=== PATIENT | male | born 1950 | race Caucasian/White ===

== ENCOUNTER → 2018-05-02 | Outpatient (CLI) | payer MEDICARE ==
--- NOTE | 2018-05-02 15:57 | XR ---
EXAMINATION TYPE: XR chest 2V DATE OF EXAM: 05/02/2018 COMPARISON: 03/09/2016 HISTORY: 68-year-old male, for 2 weeks, shortness of breath, open heart surgery 2 years ago, TECHNIQUE: Frontal and lateral views FINDINGS: Heart mildly enlarged. Median sternotomy wires and post-CABG clips. Diffuse interstitial prominence w ith small bilateral pleural effusions with bibasilar opacities. IMPRESSION: 1. Mild cardiomegaly with interstitial changes. Correlate for mild CHF. 2. Small pleural effusions with adjacent atelectasis and/or consolidation.
== END | disposition home or self-care (01) ==
LOC: RADXRMAIN 14:53
PROVIDERS: ATTEND Allergy & Immunology
DX: J90 Pleural effusion, not elsewhere classified (principal); J98.11 Atelectasis; J18.1 Lobar pneumonia, unspecified organism; I51.7 Cardiomegaly; J98.4 Other disorders of lung
CPT/HCPCS: 71046

== ENCOUNTER → 2018-05-10 | Outpatient (CLI) | payer MEDICARE | END | disposition home or self-care (01) | LOC: LABWHC1 09:59 | PROVIDERS: ATTEND Internal Medicine Interventional Cardiology | DX: I25.10 Atherosclerotic heart disease of native coronary artery without angina pectoris (principal); I50.40 Unspecified combined systolic (congestive) and diastolic (congestive) heart failure | CPT/HCPCS: 36415; 83880 ==

== ENCOUNTER → 2018-07-17 | Outpatient (CLI) | payer MEDICARE ==
--- NOTE | 2018-07-17 09:47 | US ---
EXAMINATION TYPE: US chest DATE OF EXAM: 07/17/2018 COMPARISON: NONE CLINICAL HISTORY: Bilateral Pleural Effusions J91.8. Bilateral pleural effusion TECHNIQUE: Targeted ultrasound of the posterior lower bilateral hemithoraces EXAM MEASUREMENTS: Right Pleural Effusion pocket size: 0.6 cm Right skin surface to fluid distance: 3.5 cm Left Pleural Effusion pocket size: 0.8 cm Left skin surface to fluid distance: 4.0 cm Right side NOT MARKED for possible thoracentesis outside the dept. Left side NOT MARKED for possible thoracentesis outside the dept. Pulmonologists are able to review the images in the patient?s EMR. IMPRESSIONS: Trace pleural effusions, not safely accessible for thoracentesis.
== END | disposition home or self-care (01) ==
LOC: RADUSWWP 08:58
PROVIDERS: ATTEND Internal Medicine
DX: J90 Pleural effusion, not elsewhere classified (principal)
CPT/HCPCS: 76604

== ENCOUNTER 2018-12-03 18:37 | Inpatient (IN) | payer MEDICARE ==
[2018-12-03] MEDS ORDERED: VANCOMYCIN 2,000 MG in SODIUM CHLORIDE 0.9% 250 ML IVPB STA (19:03)
--- NOTE | 2018-12-03 19:28 | ED ---
General Adult HPI - General Chief complaint: Altered Mental Status Stated complaint: infection lt leg Time Seen by Provider: 12/03/18 18:42 Source: patient, EMS Mode of arrival: EMS Limitations: no limitations - History of Present Illness Initial comments: Dictation was produced using [employer] dictation software. please excuse any gramma tical, word or spelling errors. Chief Complaint: 68-year-old male with past medical history of A. fib, dyslipidemia, chronic bilateral lower extremity neuropathy presents with fever, altered mental status and left lower extremity symptoms. History of Present Illness: He-year-old male. They spent most of [place] They reported that a living 2-[place] Patient was his usual state of health. [place] early this [place]. Patient's went to work. She received a phone call from him saying that he did not feel well. She noted that over the phone he was confused. She went home immediately noticed that his leg was significantly erythematous. noted that patient has been progressively confused. They spent the time of north and did not go hiking spent much time outside. Patient reports that he feels fine. Patient is an unreliable historian at this time. The ROS documented in this emergency department record has been reviewed and confirmed by me. Those systems with pertinent positive or negative responses have been documented in the HPI. All other systems are other negative and/or noncontributory. PHYSICAL EXAM: General Impression: Alert and oriented x4/4, slow to answer, not in acute distress HEENT: Normocephalic atraumatic, extra-ocular movements intact, pupils equal and reactive to light bilaterally, mucous membranes moist. Cardiovascular: Heart regular rate and rhythm, S1&S2 audible, no murmurs, rubs or gallops Chest: Lungs clear to auscultation bilaterally, no rhonchi, no wheeze, no rales Abdomen: Bowel sounds present, abdomen soft, non-tender, non-distended, no organomegaly Musculoskeletal: Pulses present and equal in all extremities, no peripheral edema Motor: no focal deficits noted Neurological: CN II-XII grossly intact, no focal motor or sensory deficits noted Skin: Hot erythematous left lower extremity extending from the heel area to the area just below the knee, circumferential Psych: Normal affect and mood ED course: 68-year-old male presents with concerns of sepsis. Once upon arrival shows temperature 103.2, respiratory signs within acceptable limits. Patient dunbar s cellulitic findings on the left lower extremity. He does appear slightly confused he does not however have any focal neurologic deficits. He is slightly confused however answers accurately just with slow response.Laboratory evaluation obtained. Leukocytosis 17.8 rest of CBC is unremarkable. Coag panel shows INR of 2.0. Patient is on Coumadin for A. fib. Metabolic panel shows sodium of 132, slight elevation of renal markers. Magnesium 1.5. Urinalysis no dealer compliance representative of urinary tract infection. Given patient's degree of symptoms lower shortly CT was obtained to evaluate for possible necrotizing fasciitis. CT does not suggest any evidence of that. Brain CT is unremarkable. Patient reevaluated after intravenous fluids with improvement of mental status. Patient's hemodynamics are stable. Patient be continued on vancomycin. Discussed patient case Dr. Weems was went except admission. Clinical presentation consistent with sepsis secondary to cellulitis. EKG interpretation: Ventricular rate 90, normal sinus rhythm,. Interval 174, care is 102, QTc 445. No DC prolongation, no QTC prolongation, no ST or T-wave changes noted. EKG compared to 03/03/2016 showing no changes. Overall, this EKG is unremarkable - Related Data Home Medications Medication Instructions Recorded Confirmed Albuterol Sulfate [Proventil Hfa] 2 puff INHALATION RT-Q6H PRN 02/25/16 03/02/16 Calcium Carbonate [Tums] 500 mg PO BID PRN 02/25/16 03/02/16 Multivitamins, Thera [Multivitamin 1 tab PO DAILY 02/25/16 03/02/16 (formulary)] Rosuvastatin [Crestor] 10 mg PO HS 02/25/16 03/02/16 cloNIDine HCL [Catapres] 0.2 mg PO TID 02/25/16 03/02/16 Previous Rx's Medication Instructions Recorded Amiodarone [Cordarone] 400 mg PO DAILY #7 tab 03/09/16 Aspirin 325 mg PO DAILY tab 03/09/16 Clopidogrel [Plavix] 75 mg PO DAILY #30 tab 03/09/16 HYDROcodone/APAP 5-325MG [Derby 1 each PO Q4HR PRN #60 tab 03/09/16 5-325] Metoprolol Tartrate [Lopressor] 100 mg PO BID #60 tab 03/09/16 Pantoprazole [Protonix] 40 mg PO АННА #30 tablet. 03/09/16 Sennosides-Docusate Sodium 2 each PO HS tab 03/09/16 [Senokot-S] Warfarin Sodium [Coumadin] 5 mg PO DAILY #30 tab 03/09/16 amLODIPine [Norvasc] 10 mg PO DAILY #30 tab 03/09/16 cloNIDine HCL [Catapres] 0.1 mg PO TID #90 tab 03/09/16 Allergies Allergy/AdvReac Type Severity Reaction Status Date / Time benazepril Allergy THROAT Verified 12/03/18 18:42 Swelling duloxetine [From Cymbalta] Allergy THROAT Verified 12/03/18 18:42 Swelling Review of Systems ROS Statement: Those systems with pertinent positive or pertinent negative responses have been documented in the HPI. ROS Other: All systems not noted in ROS Statement are negative. Past Medical History Past Medical History: Atrial Fibrillation, GERD/Reflux, Hyperlipidemia, Hypertension, Osteoarthritis (OA) Additional Past Medical History / Comment(s): CURRENT: HAS BEEN HAVING OCCASIONAL CHEST PAIN/PRESSUE WITH SOB, hx of bilateral tinnitis, UTI, occasional back pain, hiatal hernia, past dysphagia related to allergic reaction to medication, past gout . History of Any Multi-Drug Resistant Organisms: None Reported Past Surgical History: Cardiac Ablation, Heart Catheterization With Stent, Orthopedic Surgery Additional Past Surgical History / Comment(s): LEFT KNEE surgery for injury in [place], LEFT ROTATOR CUFF, CARDIOVERSION X 2, colonoscopy with benign polypectomy, bilateral cataract removals. Past Anesthesia/Blood Transfusion Reactions: No Reported Reaction Date of Last Stent Placement:: 1999 Past Psychological History: No Psychological Hx Reported Smoking Status: Former smoker Past Alcohol Use History: Occasional Past Drug Use History: None Reported - Past Family History Mother Family Medical History: No Reported History Additional Family Medical History / Comment(s): Mother of a sunstroke in her late 30's Father Family Medical History: Coronary Artery Disease (CAD) Additional Family Medical History / Comment(s): Father of heart disease (pt unsure if it was a [place]) in his early 40's General Exam Limitations: no limitations Course Vital Signs 12/03/18 12/03/18 18:42 21:04 Temperature 103.2 F H 101 F H Pulse Rate 96 84 Respiratory 18 18 Rate Blood Pressure 166/61 140/81 O2 Sat by Pulse 96 97 Oximetry Medical Decision Making - Lab Data Result diagrams: 12/03/18 19:40 12/03/18 19:40 Lab Results 12/03/18 12/03/18 12/03/18 Range/Units 19:40 19:40 19:40 WBC 17.8 H (3.8-10.6) k/uL RBC 4.75 (4.30-5.90) m/uL Hgb 14.2 (13.0-17.5) gm/dL Hct 42.3 (39.0-53.0) % MCV 89.0 (80.0-100.0) fL MCH 29.9 (25.0-35.0) pg MCHC 33.6 (31.0-37.0) g/dL RDW 14.1 (11.5-15.5) % Plt Count 136 L (150-450) k/uL Neutrophils % 93 % Lymphocytes % 2 % Monocytes % 3 % Eosinophils % 0 % Basophils % 0 % Neutrophils # 16.6 H (1.3-7.7) k/uL Lymphocytes # 0.4 L (1.0-4.8) k/uL Monocytes # 0.5 (0-1.0) k/uL Eosinophils # 0.0 (0-0.7) k/uL Basophils # 0.0 (0-0.2) k/uL PT (9.0-12.0) sec INR (<1.2) Sodium 132 L (137-145) mmol/L Potassium 4.5 (3.5-5.1) mmol/L Chloride 99 (98-107) mmol/L Carbon Dioxide 20 L (22-30) mmol/L Anion Gap 13 mmol/L BUN 27 H (9-20) mg/dL Creatinine 1.47 H (0.66-1.25) mg/dL Est GFR (CKD-EPI)AfAm 56 (>60 ml/min/1.73 sqM) Est GFR (CKD-EPI)NonAf 48 (>60 ml/min/1.73 sqM) Glucose 126 H (74-99) mg/dL Plasma Lactic Acid Vish 1.5 (0.7-2.0) mmol/L Calcium 9.3 (8.4-10.2) mg/dL Magnesium 1.5 L (1.6-2.3) mg/dL Total Bilirubin 1.2 (0.2-1.3) mg/dL AST 34 (17-59) U/L ALT 19 L (21-72) U/L Alkaline Phosphatase 54 (38-126) U/L Creatine Kinase 230 H (55-170) U/L Total Protein 7.0 (6.3-8.2) g/dL Albumin 4.0 (3.5-5.0) g/dL Urine Color Urine Appearance (Clear) Urine pH (5.0-8.0) Ur Specific Gladys (1.001-1.035) Urine Protein (Negative) Urine Glucose (UA) (Negative) Urine Ketones (Negative) Urine Blood (Negative) Urine Nitrite (Negative) Urine Bilirubin (Negative) Urine Urobilinogen (<2.0) mg/dL Ur Leukocyte Esterase (Negative) Urine RBC (0-5) /hpf Urine Bacteria (None) /hpf Urine Mucus (None) /hpf 12/03/18 12/03/18 Range/Units 19:40 21:10 WBC (3.8-10.6) k/uL RBC (4.30-5.90) m/uL Hgb (13.0-17.5) gm/dL Hct (39.0-53.0) % MCV (80.0-100.0) fL MCH (25.0-35.0) pg MCHC (31.0-37.0) g/dL RDW (11.5-15.5) % Plt Count (150-450) k/uL Neutrophils % % Lymphocytes % % Monocytes % % Eosinophils % % Basophils % % Neutrophils # (1.3-7.7) k/uL Lymphocytes # (1.0-4.8) k/uL Monocytes # (0-1.0) k/uL Eosinophils # (0-0.7) k/uL Basophils # (0-0.2) k/uL PT 19.2 H (9.0-12.0) sec INR 2.0 H (<1.2) Sodium (137-145) mmol/L Potassium (3.5-5.1) mmol/L Chloride (98-107) mmol/L Carbon Dioxide (22-30) mmol/L Anion Gap mmol/L BUN (9-20) mg/dL Creatinine (0.66-1.25) mg/dL Est GFR (CKD-EPI)AfAm (>60 ml/min/1.73 sqM) Est GFR (CKD-EPI)NonAf (>60 ml/min/1.73 sqM) Glucose (74-99) mg/dL Plasma Lactic Acid Vish (0.7-2.0) mmol/L Calcium (8.4-10.2) mg/dL Magnesium (1.6-2.3) mg/dL Total Bilirubin (0.2-1.3) mg/dL AST (17-59) U/L ALT (21-72) U/L Alkaline Phosphatase (38-126) U/L Creatine Kinase (55-170) U/L Total Protein (6.3-8.2) g/dL Albumin (3.5-5.0) g/dL Urine Color Yellow Urine Appearance Clear (Clear) Urine pH 6.5 (5.0-8.0) Ur Specific Gladys 1.022 (1.001-1.035) Urine Protein 3+ H (Negative) Urine Glucose (UA) Negative (Negative) Urine Ketones Trace H (Negative) Urine Blood Moderate H (Negative) Urine Nitrite Negative (Negative) Urine Bilirubin Negative (Negative) Urine Urobilinogen <2.0 (<2.0) mg/dL Ur Leukocyte Esterase Negative (Negative) Urine RBC 36 H (0-5) /hpf Urine Bacteria Rare H (None) /hpf Urine Mucus Rare H (None) /hpf Disposition Clinical Impression: Cellulitis, Sepsis Disposition: ADMITTED IP TO THIS HOSP Condition: Fair Referrals: Dagoberto Weems DO [Primary Care Provider] - 1-2 days Decision Time: 23:22
[2018-12-03] MEDS ORDERED: SODIUM CHLORIDE 0.9% 1,000 ML IV STA (19:29)
[2018-12-03] MEDS ORDERED: ACETAMINOPHEN TAB 500 MG TAB PO STA (19:29)
[2018-12-03 20:07] LABS: Basophils % (A) 0 %; Eosinophils % (A) 0 %; HCT 42.3 % (39.0-53.0); HGB 14.2 gm/dL (13.0-17.5); Lymphocytes # (A) 0.4 k/uL (1.0-4.8); Lymphocytes % (A) 2 %; MCH 29.9 pg (25.0-35.0); MCHC 33.6 g/dL (31.0-37.0); Mean Platelet Volume 6.6; Monocytes # (A) 0.5 k/uL (0-1.0); Monocytes % (A) 3 %; Neutrophils # (A) 16.6 k/uL (1.3-7.7); Neutrophils % (A) 93 %; Platelet Count 136 k/uL (150-450); RBC 4.75 m/uL (4.30-5.90); RDW 14.1 % (11.5-15.5); WBC 17.8 k/uL (3.8-10.6)
[2018-12-03 20:13] LABS: Prothrombin Time 19.2 sec (9.0-12.0)
[2018-12-03 20:18] LABS: Calcium 9.3 mg/dL (8.4-10.2); Magnesium 1.5 mg/dL (1.6-2.3); Potassium 4.5 mmol/L (3.5-5.1); Total Bilirubin 1.2 mg/dL (0.2-1.3)
--- NOTE | 2018-12-03 21:18 | CT ---
EXAMINATION TYPE: CT brain wo con DATE OF EXAM: 12/03/2018 COMPARISON: 11/01/2012 HISTORY: 68 year-old male left leg erythemic, hot and painful. Unable to answer as to injury. Confusi on and AMS today TECHNIQUE: Examination was done in axial plane without intravenous contrast. Coronal and sagittal r econstructions performed. CT DLP: 1133.4 mGycm Automated exposure control for dose reduction was used. FINDINGS: There is no evidence of acute intracranial hemorrhage, acute ischemic changes, mass, mass-effect, or extra-axial fluid collection. There is no effacement of cerebral sulci or basal subarachnoid cister ns. There is no hydrocephalus. There is no midline shift. Singleton-white matter distinction is preserv ed. Mild central cerebral atrophy. Trace mucosal thickening ethmoid air cells. Mastoid air cells well pneumatized. Orbits and globes coby ear intact. IMPRESSION: Mild central atrophy. No acute intracranial abnormality seen.
[2018-12-03 21:23] LABS: Appearance,Urine Clear (Clear); Bacteria,Urine Rare /hpf; Bilirubin,Urine Negative (Negative); Blood,Urine Moderate (Negative); Color,Urine Yellow; Glucose,Urine (UA) Negative (Negative); Ketones,Urine Trace (Negative); Leukocyte Esterase,Urine Negative (Negative); Mucus,Urine Rare /hpf; Nitrite,Urine Negative (Negative); PH, Urine 6.5 (5.0-8.0); Protein,Urine 3+ (Negative); RBC,Urine 36 /hpf (0-5); Specific Gravity,Urine 1.022 (1.001-1.035); Urobilinogen,Urine <2.0 mg/dL (<2.0)
--- NOTE | 2018-12-03 22:23 | CT ---
EXAM: CT Left Lower Extremity With Intravenous Contrast CLINICAL HISTORY: Pain TECHNIQUE: Axial computed tomography images of the left lower extremity with intravenous contrast. CTDI is 0.085, 0.085, 3.5 mGy and DLP is 262 mGy- cm. 100 cc of Isovue-[address] exam was performed using one or more of the following dose reduction techniques: automated exposure control, adjustment of the mA and/or kV according to patient size, and/or use of iterative reconstruction technique. COMPARISON: No relevant prior studies available. FINDINGS: Bones/joints: Degenerative changes noted within the ankle and knee joint. No acute fracture or traumatic malalignment. Calcifications of the menisci of the knee likely representing chondrocalcinosis. Soft tissues: Moderate edema seen within the soft tissues of the calf without a loculated fluid collection or evidence of gas. Vasculature: Vascular calcifications. IMPRESSION: Moderate edema seen within the soft tissues of the calf without a loculated fluid collection or evidence of gas. Findings are nonspecific. Correlate clinically to exclude cellulitis.
[2018-12-03] MEDS ORDERED: MORPHINE SULFATE 4 MG/ML SYRINGE IV PRN (23:23)
[2018-12-03] MEDS ORDERED: NALOXONE 0.4 MG/ML 1 ML VIAL IV PRN (23:23)
[2018-12-03] MEDS ORDERED: ONDANSETRON 4 MG/2 ML VIAL IVP PRN (23:23)
[2018-12-03] MEDS: SODIUM CHLORIDE 0.9% 1,000 ML IV SCH (23:49)
--- NOTE | 2018-12-04 00:05 | XR ---
EXAM: XR Chest, 2 Views CLINICAL HISTORY: Pain TECHNIQUE: Frontal and lateral views of the chest. COMPARISON: Chest x-ray dated 10/19/2018 FINDINGS: Lungs: Diffuse airspace opacities which may represent pulmonary vascular congestion versus an infectious process. Pleural space: Bibasilar opacities which may represent a combination of pleural effusions and atelectasis. Pneumonia is not excluded. No pneumothorax. Heart: Atrial appendage clip is noted. Mediastinum: Unremarkable. Bones/joints: Evidence of prior median sternotomy. IMPRESSION: 1. Diffuse airspace opacities which may represent pulmonary vascular congestion versus an infectious process. 2. Bibasilar opacities which may represent a combination of pleural effusions and atelectasis. Pneumonia is not excluded.
[2018-12-04 07:41] LABS: Glucose,Whole Blood 127 mg/dL (75-99)
[2018-12-04] MEDS: PANTOPRAZOLE 40 MG TABLET PO SCH (09:06)
[2018-12-04] MEDS: SODIUM CHLORIDE 0.9% 1,000 ML IV SCH ×2 (09:06→19:38)
[2018-12-04 10:45] LABS: INR 1.4 (<1.2); Prothrombin Time 14.4 sec (9.0-12.0)
--- NOTE | 2018-12-04 10:47 | P.CNOR ---
History of Present Illness - [facility] Consult date: 12/04/18 Requesting physician: Aung Oliveros Consult reason: other History of present illness: Patient is a pleasant 68-year-old male seen at bedside this morning consultation for left lower extremity swelling. He was admitted through the emergency department last evening 12/03/2018. He states he's had an episode of swelling in his left lower extremity in the past. It resolved on its own without treatment. He denies any acute injury to his left lower extremity. He also states she has a chronic history of peripheral neuropathy. 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 He is currently denying any pain in the left lower extremity. He is also denying fever or chills. He has no calf pain. He has no chest pain or shortness of breath. He has no nausea vomiting dizziness or other. Review of Systems All systems: negative Constitutional: Denies chills, Denies fever Eyes: denies blurred vision, denies pain Ears, nose, mouth and throat: Denies headache, Denies sore throat Cardiovascular: Denies chest pain, Denies shortness of breath Respiratory: Denies cough Gastrointestinal: Denies abdominal pain, Denies diarrhea, Denies nausea, Denies vomiting Musculoskeletal: Denies myalgias Integumentary: Denies pruritus, Denies rash Neurological: Denies numbness, Denies weakness Psychiatric: Denies anxiety, Denies depression Endocrine: Denies fatigue, Denies weight change Past Medical History Past Medical History: Atrial Fibrillation, GERD/Reflux, Hyperlipidemia, Hypertension, Osteoarthritis (OA) Additional Past Medical History / Comment(s): CURRENT: HAS BEEN HAVING OCCASIO NAL CHEST PAIN/PRESSUE WITH SOB, hx of bilateral tinnitis, UTI, occasional back pain, hiatal hernia, past dysphagia related to allergic reaction to medication, past gout . History of Any Multi-Drug Resistant Organisms: None Reported Past Surgical History: Cardiac Ablation, Heart Catheterization With Stent, Orthopedic Surgery Additional Past Surgical History / Comment(s): LEFT KNEE surgery for injury in [place], LEFT ROTATOR CUFF, CARDIOVERSION X 2, colonoscopy with benign polypectomy, bilateral cataract removals. Past Anesthesia/Blood Transfusion Reactions: No Reported Reaction Date of Last Stent Placement:: 1999 Past Psychological History: No Psychological Hx Reported Additional Psychological History / Comment(s): Pt resides with his spouse. He is independent. He drives. Smoking Status: Former smoker Past Alcohol Use History: Occasional Additional Past Alcohol Use History / Comment(s): QUIT SMOKING 25 YRS AGO (1988), SMOKED FOR 20 YRS, 1PPD Past Drug Use History: None Reported - Past Family History Mother Family Medical History: No Reported History Additional Family Medical History / Comment(s): Mother of a sunstroke in her late 30's Father Family Medical History: Coronary Artery Disease (CAD) Additional Family Medical History / Comment(s): Father of heart disease (pt unsure if it was a [place]) in his early 40's Medications and Allergies Home Medications Medication Instructions Recorded Confirmed Type Albuterol Sulfate [Proventil Hfa] 2 puff INHALATION RT-Q6H PRN 02/25/16 12/04/18 History Rosuvastatin [Crestor] 10 mg PO HS 02/25/16 12/04/18 History cloNIDine HCL [Catapres] 0.1 mg PO TID #90 tab 03/09/16 12/04/18 Rx Aspirin EC [Ecotrin Low Dose] 81 mg PO DAILY 12/04/18 12/04/18 History Furosemide [Lasix] 20 mg PO DAILY 12/04/18 12/04/18 History Indomethacin [Indocin] 50 mg PO BID PRN 12/04/18 12/04/18 History Metoprolol Tartrate [Lopressor] 100 mg PO BID 12/04/18 12/04/18 History Sildenafil Citrate 100 mg PO DIRECTED PRN 12/04/18 12/04/18 History Warfarin Sodium [Coumadin] 7.5 mg PO SUTUWETHSA 12/04/18 12/04/18 History Warfarin [Coumadin] 5 mg PO MOFR 12/04/18 12/04/18 History Allergies Allergy/AdvReac Type Severity Reaction Status Date / Time benazepril Allergy THROAT Verified 12/04/18 10:28 Swelling duloxetine [From Cymbalta] Allergy THROAT Verified 12/04/18 10:28 Swelling amlodipine AdvReac HEADACHE Verified 12/04/18 10:28 atorvastatin [From Lipitor] AdvReac EDEMA Verified 12/04/18 10:28 pravastatin AdvReac MUSCLE PAIN Verified 12/04/18 10:28 simvastatin AdvReac MUSCLE PAIN Verified 12/04/18 10:28 Physical Examination Inspection of the left lower extremity shows no deformity. There is mild diffuse erythema and brawny type skin. There is moderate edema throughout the left lower leg and foot. He has painless range of motion of the hip, knee, ankle and foot. Left leg is nontender throughout. The calf is soft and nontender. There is 1+ dorsalis pedis pulse. Motor and sensation is intact throughout the left lower leg. Results CT of the left lower leg shows no loculated fluid, abscess or fluid collection. There is no fractures or lesions. There is soft tissue edema. - Labs Labs: Abnormal Lab Results - Last 24 Hours (Table) 12/03/18 12/03/18 12/03/18 Range/Units 19:40 19:40 19:40 WBC 17.8 H (3.8-10.6) k/uL Plt Count 136 L (150-450) k/uL Neutrophils # 16.6 H (1.3-7.7) k/uL Lymphocytes # 0.4 L (1.0-4.8) k/uL PT 19.2 H (9.0-12.0) sec INR 2.0 H (<1.2) Sodium 132 L (137-145) mmol/L Carbon Dioxide 20 L (22-30) mmol/L BUN 27 H (9-20) mg/dL Creatinine 1.47 H (0.66-1.25) mg/dL Glucose 126 H (74-99) mg/dL POC Glucose (mg/dL) (75-99) mg/dL Magnesium 1.5 L (1.6-2.3) mg/dL ALT 19 L (21-72) U/L Creatine Kinase 230 H (55-170) U/L Urine Protein (Negative) Urine Ketones (Negative) Urine Blood (Negative) Urine RBC (0-5) /hpf Urine Bacteria (None) /hpf Urine Mucus (None) /hpf 12/03/18 12/04/18 Range/Units 21:10 07:39 WBC (3.8-10.6) k/uL Plt Count (150-450) k/uL Neutrophils # (1.3-7.7) k/uL Lymphocytes # (1.0-4.8) k/uL PT (9.0-12.0) sec INR (<1.2) Sodium (137-145) mmol/L Carbon Dioxide (22-30) mmol/L BUN (9-20) mg/dL Creatinine (0.66-1.25) mg/dL Glucose (74-99) mg/dL POC Glucose (mg/dL) 127 H (75-99) mg/dL Magnesium (1.6-2.3) mg/dL ALT (21-72) U/L Creatine Kinase (55-170) U/L Urine Protein 3+ H (Negative) Urine Ketones Trace H (Negative) Urine Blood Moderate H (Negative) Urine RBC 36 H (0-5) /hpf Urine Bacteria Rare H (None) /hpf Urine Mucus Rare H (None) /hpf Microbiology - Last 24 Hours (Table) 12/03/18 21:10 Urine Culture - Preliminary Urine,Voided H & H 12/03/18 Range/Units 19:40 Hgb 14.2 (13.0-17.5) gm/dL Hct 42.3 (39.0-53.0) % Coagulation 12/03/18 Range/Units 19:40 INR 2.0 H (<1.2) Result Diagrams: 12/03/18 19:40 12/03/18 19:40 Assessment and Plan (1) Cellulitis Narrative/Plan: There is no orthopedic surgical intervention warranted at this time. CT shows no fluid collection, fractures or lesions. He has a painless left lower extremity and it is not overly red or hot. Recommended continued IV antibiotics per primary team as well as I have recommended to his nurse elevating his left lower extremity and using a CARLA hose. We will continue to monitor and make further recommendations as appropriate. Current Visit: Yes Status: Acute Priority: Medium Code(s): L03.90 - CELLULITIS, UNSPECIFIED SNOMED Code(s): 227858744 Time with Patient: Less than 30
[2018-12-04] MEDS ORDERED: INDOMETHACIN 25 MG CAP PO PRN (11:20)
[2018-12-04] MEDS ORDERED: IPRATROPIUM-ALBUTEROL 3 ML NEB INHALATION PRN (11:22)
[2018-12-04] MEDS ORDERED: WARFARIN 5 MG TAB PO SCH ×2 (11:30→18:00)
[2018-12-04 12:13] LABS: Glucose,Whole Blood 114 mg/dL (75-99)
--- NOTE | 2018-12-04 12:16 | US ---
EXAMINATION TYPE: US venous doppler duplex LE LT DATE OF EXAM: 12/04/2018 11:49 AM COMPARISON: NONE CLINICAL HISTORY: edema . Left leg edema SIDE PERFORMED: Left TECHNIQUE: The lower extremity deep venous system is examined utilizing real time linear array sonog conchita with graded compression, doppler sonography and color-flow sonography. VESSELS IMAGED: External Iliac Vein (EIV) Common Femoral Vein Deep Femoral Vein Greater Saphenous Vein * Femoral Vein Popliteal Vein Small Saphenous Vein * Proximal Calf Veins (* superficial vessels) Grayscale, color doppler, spectral doppler imaging performed of the deep veins of the left lower extr emity. There is normal flow, compressibility, vascular waveforms. Left Leg: Negative for DVT IMPRESSION: No sonographic evidence of deep venous thrombosis in the left lower extremity.
[2018-12-04] MEDS: ASPIRIN 81 MG PO SCH (12:50)
[2018-12-04] MEDS: cloNIDine HCL 0.1 MG TAB PO SCH ×3 (12:50→19:37)
[2018-12-04] MEDS: METOPROLOL TARTRATE 50 MG TAB PO SCH ×2 (12:53→19:37)
[2018-12-04] MEDS: IPRATROPIUM-ALBUTEROL 3 ML NEB INHALATION SCH ×3 (15:22→19:05)
[2018-12-04] MEDS ORDERED: WARFARIN 7.5 MG TAB PO ONE (18:00)
[2018-12-04] MEDS: ATORVASTATIN 20 MG TAB PO SCH (19:38)
[2018-12-05] MEDS: SODIUM CHLORIDE 0.9% 1,000 ML IV SCH (05:09)
[2018-12-05] MEDS: IPRATROPIUM-ALBUTEROL 3 ML NEB INHALATION SCH ×4 (07:13→20:33)
[2018-12-05] MEDS: ASPIRIN 81 MG PO SCH (07:25)
[2018-12-05] MEDS: PANTOPRAZOLE 40 MG TABLET PO SCH (07:25)
[2018-12-05] MEDS: cloNIDine HCL 0.1 MG TAB PO SCH ×3 (07:25→20:30)
[2018-12-05] MEDS: METOPROLOL TARTRATE 50 MG TAB PO SCH ×2 (07:25→20:30)
[2018-12-05 10:09] LABS: Basophils % (A) 0 %; Eosinophils # (A) 0.1 k/uL (0-0.7); Eosinophils % (A) 1 %; HCT 38.3 % (39.0-53.0); HGB 12.9 gm/dL (13.0-17.5); Lymphocytes # (A) 0.4 k/uL (1.0-4.8); Lymphocytes % (A) 5 %; MCH 30.7 pg (25.0-35.0); MCHC 33.7 g/dL (31.0-37.0); MCV 91.2 fL (80.0-100.0); Mean Platelet Volume 6.7; Monocytes # (A) 0.3 k/uL (0-1.0); Monocytes % (A) 3 %; Neutrophils # (A) 6.9 k/uL (1.3-7.7); Neutrophils % (A) 87 %; Platelet Count 107 k/uL (150-450); RDW 14.2 % (11.5-15.5); WBC 7.9 k/uL (3.8-10.6)
[2018-12-05 10:13] LABS: INR 1.3 (<1.2); Prothrombin Time 13.1 sec (9.0-12.0)
[2018-12-05 10:18] LABS: Calcium 8.5 mg/dL (8.4-10.2); Potassium 4.7 mmol/L (3.5-5.1)
--- NOTE | 2018-12-05 10:57 | P.HPIM ---
History of Present Illness H&P Date: 12/04/18 Chief Complaint: Confusion, left leg edema This is a 68-year-old gentleman with history of atrial fibrillation, gastroesophageal reflux disease, hypertension, hyperlipidemia, osteoarthritis, CAD with history of stents, former smoker and multiple other medical issues. Patient initially sustained left lower extremity injury during [place] in July, reported improvement. Couple days. Patient had traveled up north and back, 2-1/[address] within a 24-hour timeframe. Denies being outside while up north. Denies any recent trauma to the affected extremity. Denies tenderness, denies calf pain- states he has peripheral neuropathy.Denies fever or chills.This morning after returning home, phone call to his at work, confused, telling her that he did not feel well. came home and discovered that his left leg is significantly swollen, reddened and brought him into the ER. On arrival temperature was 103.2, WBC 17.8, INR 2(on Coumadin). Sodium 132, BUN 27, creatinine 1.47, creatinine kinase 230. UA reporting moderate blood, trace ketones, 3+ urine protein. Brain CT reported mild central atrophy, no acute intracranial hemorrhage, ischemic changes mass mass effect or extra- axial fluid collection, no acute abnormality seen. CT of the left lower ex tremity nonspecific, reporting moderate edema within the soft tissues of the calf without a loculated fluid collection or evidence of gas, no fractures. Denies chest pain, palpitations or shortness of breath. Denies cough. Chest x- ray reported pulmonary vascular congestion versus infectious process with bibasilar opacity's, possible pleural effusions and atelectasis, possible pneumonia. EKG normal sinus rhythm, inferior infarct age undetermined. Received IV vancomycin, IV fluid hydration in the ER. Denies nausea vomiting or diarrhea. Denies abdominal pain. Review of Systems ROS Statement: Those systems with pertinent positive or pertinent negative responses have been documented in the HPI. ROS Other: All systems not noted in ROS Statement are negative. Past Medical History Past Medical History: Atrial Fibrillation, GERD/Reflux, Hyperlipidemia, Hypertension, Osteoarthritis (OA) Additional Past Medical History / Comment(s): CURRENT: HAS BEEN HAVING OCCASIONAL CHEST PAIN/PRESSUE WITH SOB, hx of bilateral tinnitis, UTI, occasional back pain, hiatal hernia, past dysphagia related to allergic reaction to medication, past gout . History of Any Multi-Drug Resistant Organisms: None Reported Past Surgical History: Cardiac Ablation, Heart Catheterization With Stent, Orthopedic Surgery Additional Past Surgical History / Comment(s): LEFT KNEE surgery for injury in [place], LEFT ROTATOR CUFF, CARDIOVERSION X 2, colonoscopy with benign polypectomy, bilateral cataract removals. Past Anesthesia/Blood Transfusion Reactions: No Reported Reaction Date of Last Stent Placement:: 1999 Past Psychological History: No Psychological Hx Reported Additional Psychological History / Comment(s): Pt resides with his spouse. He is independent. He drives. Smoking Status: Former smoker Past Alcohol Use History: Occasional Additional Past Alcohol Use History / Comment(s): QUIT SMOKING 25 YRS AGO (1988), SMOKED FOR 20 YRS, 1PPD Past Drug Use History: None Reported - Past Family History Mother Family Medical History: No Reported History Additional Family Medical History / Comment(s): Mother of a sunstroke in her late 30's Father Family Medical History: Coronary Artery Disease (CAD) Additional Family Medical History / Comment(s): Father of heart disease (pt unsure if it was a MN) in his early 40's Medications and Allergies Home Medications Medication Instructions Recorded Confirmed Type Albuterol Sulfate [Proventil Hfa] 2 puff INHALATION RT-Q6H PRN 02/25/16 12/04/18 History Rosuvastatin [Crestor] 10 mg PO HS 02/25/16 12/04/18 History cloNIDine HCL [Catapres] 0.1 mg PO TID #90 tab 03/09/16 12/04/18 Rx Aspirin EC [Ecotrin Low Dose] 81 mg PO DAILY 12/04/18 12/04/18 History Furosemide [Lasix] 20 mg PO DAILY 12/04/18 12/04/18 History Indomethacin [Indocin] 50 mg PO BID PRN 12/04/18 12/04/18 History Metoprolol Tartrate [Lopressor] 100 mg PO BID 12/04/18 12/04/18 History Sildenafil Citrate 100 mg PO DIRECTED PRN 12/04/18 12/04/18 History Warfarin Sodium [Coumadin] 7.5 mg PO SUTUWETHSA 12/04/18 12/04/18 History Warfarin [Coumadin] 5 mg PO MOFR 12/04/18 12/04/18 History Allergies Allergy/AdvReac Type Severity Reaction Status Date / Time benazepril Allergy THROAT Verified 12/04/18 10:28 Swelling duloxetine [From Cymbalta] Allergy THROAT Verified 12/04/18 10:28 Swelling amlodipine AdvReac HEADACHE Verified 12/04/18 10:28 atorvastatin [From Lipitor] AdvReac EDEMA Verified 12/04/18 10:28 pravastatin AdvReac MUSCLE PAIN Verified 12/04/18 10:28 simvastatin AdvReac MUSCLE PAIN Verified 12/04/18 10:28 Physical Exam Vitals: Vital Signs Temp Pulse Pulse Resp BP BP BP 12/04/18 04:45 98.4 F 95 20 150/76 12/04/18 01:08 97.9 F 72 20 150/84 12/03/18 23:30 98.6 F 79 18 135/67 12/03/18 21:04 101 F H 84 18 140/81 12/03/18 18:42 103.2 F H 96 18 166/61 Pulse Ox 12/04/18 04:45 97 12/04/18 01:08 96 12/03/18 23:30 12/03/18 21:04 97 12/03/18 18:42 96 Intake and Output 12/03/18 12/04/18 12/04/18 22:59 06:59 14:59 Intake Total 100 Output Total 400 Balance -400 100 Intake: Oral 100 Output: Urine 400 Other: # Voids 1 1 Weight 104.326 kg PHYSICAL EXAM: VITAL SIGNS: As above GENERAL: Sitting up in bed, no acute distress HEENT: Conjunctivae normal. eyes normal. Oral mucosa moist NECK: No JVD. No thyroid enlargement. No LNs CARDIOVASCULAR: S1, S2 regular. No murmur RESPIRATION: Breath sounds diminished in the bases. No rhonchi or crackles. No bronchial breathing. ABDOMEN: Soft, nontender . No guarding. no masses palpable. No ascites, No hepatosplenomegaly.Bowel sounds heard. LEGS: Left lower extremity, including foot with significant increased warmth, redness, edema. No open areas, no drainage. Nontender. Positive DP. PSYCHIATRY: Alert and oriented X3, mood and affect normal. NERVOUS SYSTEM: Cranial N 2-12 grossly normal. Moves all 4 limbs. Diffuse weakness No focal deficits. Strength and sensation grossly intact.. Skin: no lesions, no rash Lymphatic system. No LN neck axilla or groin. Results CBC & Chem 7: 07/10/19 09:00 12/03/18 19:40 Labs: Abnormal Lab Results - Last 24 Hours (Table) 12/03/18 12/03/18 12/03/18 Range/Units 19:40 19:40 19:40 WBC 17.8 H (3.8-10.6) k/uL Plt Count 136 L (150-450) k/uL Neutrophils # 16.6 H (1.3-7.7) k/uL Lymphocytes # 0.4 L (1.0-4.8) k/uL PT 19.2 H (9.0-12.0) sec INR 2.0 H (<1.2) Sodium 132 L (137-145) mmol/L Carbon Dioxide 20 L (22-30) mmol/L BUN 27 H (9-20) mg/dL Creatinine 1.47 H (0.66-1.25) mg/dL Glucose 126 H (74-99) mg/dL POC Glucose (mg/dL) (75-99) mg/dL Magnesium 1.5 L (1.6-2.3) mg/dL ALT 19 L (21-72) U/L Creatine Kinase 230 H (55-170) U/L Urine Protein (Negative) Urine Ketones (Negative) Urine Blood (Negative) Urine RBC (0-5) /hpf Urine Bacteria (None) /hpf Urine Mucus (None) /hpf 12/03/18 12/04/18 Range/Units 21:10 07:39 WBC (3.8-10.6) k/uL Plt Count (150-450) k/uL Neutrophils # (1.3-7.7) k/uL Lymphocytes # (1.0-4.8) k/uL PT (9.0-12.0) sec INR (<1.2) Sodium (137-145) mmol/L Carbon Dioxide (22-30) mmol/L BUN (9-20) mg/dL Creatinine (0.66-1.25) mg/dL Glucose (74-99) mg/dL POC Glucose (mg/dL) 127 H (75-99) mg/dL Magnesium (1.6-2.3) mg/dL ALT (21-72) U/L Creatine Kinase (55-170) U/L Urine Protein 3+ H (Negative) Urine Ketones Trace H (Negative) Urine Blood Moderate H (Negative) Urine RBC 36 H (0-5) /hpf Urine Bacteria Rare H (None) /hpf Urine Mucus Rare H (None) /hpf Microbiology - Last 24 Hours (Table) 12/03/18 21:10 Urine Culture - Preliminary Urine,Voided Thrombosis Risk Factor Assmnt - Choose All That Apply Any of the Below Risk Factors Present?: Yes Each Factor Represents 1 point: Obesity (BMI >25) Other Risk Factors: Yes Each Risk Factor Represents 2 Points: Age 61-74 years Other congenital or acquired thrombophilia - If yes, enter type in comment: No Thrombosis Risk Factor Assessment Total Risk Factor Score: 3 Thrombosis Risk Factor Assessment Level: Moderate Risk Assessment and Plan Assessment: -Sepsis secondary to cellulitis of left lower extremity; prior trauma July 2018 -Acute renal failure, multifactorial, secondary to the above and mild dehydration, baseline 1.1 to 1.2 -Chronic peripheral neuropathy -Chronic proximal atrial fibrillation, history of ablation -Hypertension -Hyperlipidemia -Osteoarthritis -CAD, history of CABG, stents -History of left knee surgery -Former smoker Plan: Continue current medication regime ,monitoring and symptomatic treatment. Home meds have been reviewed and resumed. Maintain gentle IV fluid hydration. IV Rocephin added to med regime. Extremity to be elevated. Twan wrap/CARLA hose.Follow cultures closely. Close monitoring of renal function, electrolytes with repeat labs ordered for a.m. GI and DVT prophylaxis in place.Daily PT INR.Doppler ordered for left lower extremity, rule out DVT. Orthopedic consulted. The impression and plan of care has been dictated as directed. : I performed a history and examination of this patient, discussed the same with the dictator. I agree with the dictator's note ,documented as a scribe. Any additional findings or plans will be noted. Time taken: 35 minutes
[2018-12-05] MEDS: AZITHROMYCIN 500 MG in SODIUM CHLORIDE 0.9% 250 ML IVPB SCH (15:22)
--- NOTE | 2018-12-05 15:24 | P.PN ---
Subjective Progress Note Date: 12/05/18 This is a 68-year-old gentleman with history of atrial fibrillation, gastroesophageal reflux disease, hypertension, hyperlipidemia, osteoarthritis, CAD with history of stents, former smoker and multiple other medical issues. Patient initially sustained left lower extremity injury during [employer] [place] in July, reported improvement. Couple days. Patient had traveled up north and back, 2-1/[address] within a 24-hour timeframe. Denies being outside while up north. Denies any recent trauma to the affected extremity. Denies tenderness, denies calf pain- states he has peripheral neuropathy.Denies fever or chills.This morning after returning home, phone call to his at work, confused, telling her that he did not feel well. came home and discovered that his left leg is significantly swollen, reddened and brought him into the ER. On arrival temperature was 103.2, WBC 17.8, INR 2(on Coumadin). Sodium 132, BUN 27, creatinine 1.47, creatinine kinase 230. UA reporting moderate blood, trace ketones, 3+ urine protein. Brain CT reported mild central atrophy, no acute intracranial hemorrhage, ischemic changes mass mass effect or extra- axial fluid collection, no acute abnormality seen. CT of the left lower extremity nonspecific, reporting moderate edema within the soft tissues of the calf without a loculated fluid collection or evidence of gas, no fractures. Denies chest pain, palpitations or shortness of breath. Denies cough. Chest x- ray reported pulmonary vascular congestion versus infectious process with bibasilar opacity's, possible pleural effusions and atelectasis, possible pneumonia. EKG normal sinus rhythm, inferior infarct age undetermined. Received IV vancomycin, IV fluid hydration in the ER. Denies nausea vomiting or diarrhea. Denies abdominal pain. 12/05/18 maintained on IV antibiotics of Rocephin, left lower extremity edema, redness, warmth improving. Maintained on IV fluid hydration with creatinine improved, down to 1.21. Good diet intake, consuming 100%. Afebrile. Urine culture reporting no growth, preliminary blood cultures negative. Chest x-ray suggestive of possible early pneumonia., Complains of minimal nonproductive cough. Denies chest pain, palpitations or increased shortness of breath. INR 1.3. Objective - Vital Signs Vital signs: Vital Signs Temp 98.8 F 12/05/18 05:00 Pulse 70 12/05/18 10:51 Resp 18 12/05/18 05:00 BP 150/81 12/05/18 05:00 Pulse Ox 97 12/05/18 05:00 Intake & Output 12/04/18 12/05/18 12/05/18 18:59 06:59 18:59 Intake Total 200 Balance 200 Intake: Oral 200 Other: # Voids 3 2 # Bowel Movements 0 - Exam VITAL SIGNS: As above GENERAL: Sitting up in bed, no acute distress HEENT: Conjunctivae normal. eyes normal. Oral mucosa moist NECK: No JVD. No thyroid enlargement. No LNs CARDIOVASCULAR: S1, S2 regular. No murmur RESPIRATION: Breath sounds diminished in bilateral bases. No rhonchi or crackles. No bronchial wheezing ABDOMEN: Soft, nontender . No guarding. no masses palpable. Bowel sounds heard. LEGS: Left lower extremity, including foot with increased warmth, improving redness and edema. No open areas, no drainage. Nontender. Positive DP. PSYCHIATRY: Alert and oriented X3, mood and affect normal. NERVOUS SYSTEM: Cranial N 2-12 grossly normal. Moves all 4 limbs. Diffuse weakness No focal deficits. Strength and sensation grossly intact. Lymphatic system. No LN neck axilla or groin. - Labs CBC & Chem 7: 12/05/18 09:00 12/05/18 09:00 Labs: Abnormal Lab Results - Last 24 Hours (Table) 12/04/18 12/05/18 12/05/18 Range/Units 12:08 09:00 09:00 RBC 4.20 L (4.30-5.90) m/uL Hgb 12.9 L (13.0-17.5) gm/dL Hct 38.3 L (39.0-53.0) % Plt Count 107 L (150-450) k/uL Lymphocytes # 0.4 L (1.0-4.8) k/uL PT 13.1 H (9.0-12.0) sec INR 1.3 H (<1.2) Sodium (137-145) mmol/L Glucose (74-99) mg/dL POC Glucose (mg/dL) 114 H (75-99) mg/dL 12/05/18 Range/Units 09:00 RBC (4.30-5.90) m/uL Hgb (13.0-17.5) gm/dL Hct (39.0-53.0) % Plt Count (150-450) k/uL Lymphocytes # (1.0-4.8) k/uL PT (9.0-12.0) sec INR (<1.2) Sodium 133 L (137-145) mmol/L Glucose 161 H (74-99) mg/dL POC Glucose (mg/dL) (75-99) mg/dL Microbiology - Last 24 Hours (Table) 12/03/18 21:10 Urine Culture - Final Urine,Voided 12/03/18 19:40 Blood Culture - Preliminary Blood No Growth after 24 hours Assessment and Plan Assessment: -Sepsis secondary to cellulitis of left lower extremity; prior trauma July 2018, possibly related to early bibasilar pneumonia, community-acquired -Acute renal failure, possibly on chronic stage IIIa ,multifactorial, secondary to the above and mild dehydration, baseline 1.1 to 1.2, -Bibasilar opacity, possible early pneumonia -Atelectasis -DVT ruled out. -Chronic peripheral neuropathy -Chronic proximal atrial fibrillation, history of ablation -Hypertension -Hyperlipidemia -Osteoarthritis -CAD, history of CABG, stents -History of left knee surgery -Former smoker Plan: Continue current medication regime ,monitoring and symptomatic treatment. Zithromax added to med regime in addition to Rocephin for possible early pneumonia. Diet intake, IV fluid hydration discontinued. Maintain elevation of the left lower Extremity with CARLA hose. Close monitoring of renal function, electrolytes with repeat labs ordered for a.m. Coumadin per pharmacy dosing. Discharge planning in progress for tomorrow pending final blood culture results. The impression and plan of care has been dictated as directed. : I performed a history and examination of this patient, discussed the same with the dictator. I agree with the dictator's note ,documented as a scribe. Any additional findings or plans will be noted. Time taken: 35 minutes
[2018-12-05] MEDS ORDERED: WARFARIN 10 MG TAB PO ONE (18:00)
[2018-12-05] MEDS: ACETAMINOPHEN TAB 325 MG TAB PO PRN (20:29)
[2018-12-05] MEDS: ATORVASTATIN 20 MG TAB PO SCH (20:30)
[2018-12-05 21:12] VITALS: RESP 24
[2018-12-06 05:49] VITALS: BP 159/84; TEMP 98.9
[2018-12-06] MEDS: METOPROLOL TARTRATE 50 MG TAB PO SCH (07:01)
[2018-12-06] MEDS: cloNIDine HCL 0.1 MG TAB PO SCH (07:01)
[2018-12-06] MEDS: ACETAMINOPHEN TAB 325 MG TAB PO PRN (07:01)
[2018-12-06] MEDS: PANTOPRAZOLE 40 MG TABLET PO SCH (07:02)
[2018-12-06] MEDS: ASPIRIN 81 MG PO SCH (07:02)
[2018-12-06] MEDS: AZITHROMYCIN 500 MG in SODIUM CHLORIDE 0.9% 250 ML IVPB SCH (07:59)
[2018-12-06 08:13] LABS: Basophils % (A) 0 %; Eosinophils # (A) 0.2 k/uL (0-0.7); Eosinophils % (A) 3 %; HCT 40.8 % (39.0-53.0); HGB 13.7 gm/dL (13.0-17.5); Lymphocytes # (A) 0.5 k/uL (1.0-4.8); Lymphocytes % (A) 8 %; MCH 30.4 pg (25.0-35.0); MCHC 33.5 g/dL (31.0-37.0); MCV 90.8 fL (80.0-100.0); Mean Platelet Volume 7.1; Monocytes # (A) 0.3 k/uL (0-1.0); Monocytes % (A) 4 %; Neutrophils % (A) 80 %; Platelet Count 122 k/uL (150-450); WBC 6.2 k/uL (3.8-10.6)
[2018-12-06 08:17] LABS: INR 1.4 (<1.2); Prothrombin Time 13.9 sec (9.0-12.0)
[2018-12-06 08:21] LABS: Calcium 8.6 mg/dL (8.4-10.2); Potassium 4.2 mmol/L (3.5-5.1)
[2018-12-06] MEDS: IPRATROPIUM-ALBUTEROL 3 ML NEB INHALATION SCH ×2 (08:42→10:55)
[2018-12-06 08:58] VITALS: PULSE 70
--- NOTE | 2018-12-06 13:51 | P.DS ---
Providers Date of admission: 12/03/18 23:23 Expected date of discharge: 12/06/18 Attending physician: Dagoberto Weems Consults: 12/04/18 09:38 Consult Physician Routine Consulting Provider: Aung Oliveros Consult Reason/Comments: Left lower extremity flare up( initial injury July) Do you want consulting provider notified?: Yes Primary care physician: Mary Weems Hospital Course: Final Diagnoses: -Sepsis secondary to cellulitis of left lower extremity; prior trauma July 2018, -Acute renal failure, possibly on chronic stage IIIa ,multifactorial, secondary to the above and mild dehydration, baseline 1.1 to 1.2, -Bibasilar opacity, possible early bibasilar pneumonia, community-acquired -Atelectasis -DVT ruled out. -Chronic peripheral neuropathy -Chronic proximal atrial fibrillation, history of ablation -Hypertension -Hyperlipidemia -Osteoarthritis -CAD, history of CABG, stents -History of left knee surgery -Former smoker Hospital course:This is a 68-year-old gentleman with history of atrial fibrillation, gastroesophageal reflux disease, hypertension, hyperlipidemia, osteoarthritis, CAD with history of stents, former smoker and multiple other medical issues. Patient initially sustained left lower extremity injury during [employer] [place] in July, reported improvement. Couple days. Patient had traveled up north and back, 2-1/[address] within a 24-hour timeframe. Denies being outside while up north. Denies any recent trauma to the affected extremity. Denies tenderness, denies calf pain- states he has peripheral neuropathy.Denies fever or chills.This morning after returning home, phone call to his at work, confused, telling her that he did not feel well. came home and discovered that his left leg is significantly swollen, reddened and brought him into the ER. On arrival temperature was 103.2, WBC 17.8, INR 2(on Coumadin). Sodium 132, BUN 27, creatinine 1.47, creatinine kinase 230. UA reporting moderate blood, trace ketones, 3+ urine protein. Brain CT reported mild central atrophy, no acute intracranial hemorrhage, ischemic changes mass mass effect or extra-axial fluid collection, no acute abnormality seen. CT of the left lower extremity nonspecific, reporting moderate edema within the soft tissues of the calf without a loculated fluid collection or evidence of gas, no fractures. Denies chest pain, palpitations or shortness of breath. Denies cough. Chest x- ray reported pulmonary vascular congestion versus infectious process with bibasilar opacity's, possible pleural effusions and atelectasis, possible p neumonia. EKG normal sinus rhythm, inferior infarct age undetermined. Received IV vancomycin, IV fluid hydration in the ER. Denies nausea vomiting or diarrhea. Denies abdominal pain. 12/05/18 maintained on IV antibiotics of Rocephin, left lower extremity edema, redness, warmth improving. Maintained on IV fluid hydration with creatinine improved, down to 1.21. Good diet intake, consuming 100%. Afebrile. Urine culture reporting no growth, preliminary blood cultures negative. Chest x-ray suggestive of possible early pneumonia., Complains of minimal nonproductive cough. Denies chest pain, palpitations or increased shortness of breath. INR 1.3. Significant clinical improvement. Patient is being discharged home in a stable condition with guarded prognosis. Microbiology 12/03/18 19:40 Blood Blood Culture - Preliminary No Growth after 48 hours 12/03/18 21:10 Urine,Voided Urine Culture - Final EXAM: GENERAL: Alert and oriented 3 no acute distress CARDIOVASCULAR: S1, S2 regular. No murmur RESPIRATION: Breath sounds diminished in bilateral bases. No rhonchi or crackles. No bronchial wheezing ABDOMEN: Soft, nontender . No guarding. no masses palpable. Bowel sounds heard. NERVOUS SYSTEM: No focal deficits. The impression and plan of care has been dictated as directed. : I performed a history and examination of this patient, discussed the same with the dictator. I agree with the dictator's note ,documented as a scribe. Any additional findings or plans will be noted. Time taken: 35 minutes Patient Condition at Discharge: Stable Plan - Discharge Summary Discharge Rx Participant: Yes New Discharge Prescriptions: New Azithromycin [Zithromax Z-pack] 0 mg PO DIRECTED #6 tab Cephalexin [Keflex] 500 mg PO Q8HR #21 cap Omeprazole [PriLOSEC] 20 mg PO AC-BID #20 cap Continue Rosuvastatin [Crestor] 10 mg PO HS Albuterol Sulfate [Proventil Hfa] 2 puff INHALATION RT-Q6H PRN PRN Reason: Shortness Of Breath cloNIDine HCL [Catapres] 0.1 mg PO TID #90 tab Furosemide [Lasix] 20 mg PO DAILY Indomethacin [Indocin] 50 mg PO BID PRN PRN Reason: GOUT Metoprolol Tartrate [Lopressor] 100 mg PO BID Aspirin EC [Ecotrin Low Dose] 81 mg PO DAILY Sildenafil Citrate 100 mg PO DIRECTED PRN PRN Reason: E.D. Warfarin [Coumadin] 5 mg PO MOFR Warfarin Sodium [Coumadin] 7.5 mg PO SUTUWETHSA Discharge Medication List Albuterol Sulfate [Proventil Hfa] 2 puff INHALATION RT-Q6H PRN 02/25/16 [History] Rosuvastatin [Crestor] 10 mg PO HS 02/25/16 [History] cloNIDine HCL [Catapres] 0.1 mg PO TID #90 tab 03/09/16 [Rx] Aspirin EC [Ecotrin Low Dose] 81 mg PO DAILY 12/04/18 [History] Furosemide [Lasix] 20 mg PO DAILY 12/04/18 [History] Indomethacin [Indocin] 50 mg PO BID PRN 12/04/18 [History] Metoprolol Tartrate [Lopressor] 100 mg PO BID 12/04/18 [History] Sildenafil Citrate 100 mg PO DIRECTED PRN 12/04/18 [History] Warfarin Sodium [Coumadin] 7.5 mg PO SUTUWETHSA 12/04/18 [History] Warfarin [Coumadin] 5 mg PO MOFR 12/04/18 [History] Azithromycin [Zithromax Z-pack] 0 mg PO DIRECTED #6 tab 12/06/18 [Rx] Cephalexin [Keflex] 500 mg PO Q8HR #21 cap 12/06/18 [Rx] Omeprazole [PriLOSEC] 20 mg PO AC-BID #20 cap 12/06/18 [Rx] Follow up Appointment(s)/Referral(s): Dagoberto Weems DO [Doctor of Osteopathic Medicine] - 1 Week [facility],Clinic [REFERRING] - 1-2 Days Ambulatory/Diagnostic Orders: Prothrombin Time INR [LAB.AMB] Time Frame: 3 Days, Location: None Selected Activity/Diet/Wound Care/Special Instructions: DC Medication list needs to be faxed to the [facility] at discharge so new medications can be ordered.
[2018-12-06] MEDS ORDERED: WARFARIN 10 MG TAB PO ONE (18:00)
[2018-12-07] MEDS ORDERED: WARFARIN 5 MG TAB PO SCH (11:21)
== END 2018-12-06 14:04 | disposition home or self-care (01) | DRG 871 ==
LOC: EC 18:37 → OBSVTOIN 23:23 → 4MS4W 23:23
PROVIDERS: ADMIT Family Medicine; ATTEND Family Medicine
DX: A41.9 Sepsis, unspecified organism (principal); J18.9 Pneumonia, unspecified organism; J98.11 Atelectasis; L03.116 Cellulitis of left lower limb; N17.9 Acute kidney failure, unspecified; R65.20 Severe sepsis without septic shock; I48.2 Chronic atrial fibrillation; G62.9 Polyneuropathy, unspecified; N18.3 Chronic kidney disease, stage 3 (moderate); E78.5 Hyperlipidemia, unspecified; E86.0 Dehydration; I25.10 Atherosclerotic heart disease of native coronary artery without angina pectoris; K21.9 Gastro-esophageal reflux disease without esophagitis; M19.90 Unspecified osteoarthritis, unspecified site; K44.9 Diaphragmatic hernia without obstruction or gangrene; M10.9 Gout, unspecified; I12.9 Hypertensive chronic kidney disease with stage 1 through stage 4 chronic kidney disease, or unspecified chronic kidney disease; Z79.01 Long term (current) use of anticoagulants; Z79.02 Long term (current) use of antithrombotics/antiplatelets; Z79.82 Long term (current) use of aspirin; Z79.899 Other long term (current) drug therapy; Z88.8 Allergy status to other drugs, medicaments and biological substances; Z95.5 Presence of coronary angioplasty implant and graft; Z95.1 Presence of aortocoronary bypass graft; Z87.891 Personal history of nicotine dependence; Z87.440 Personal history of urinary (tract) infections; Z86.010 Personal history of colon polyps; Z98.42 Cataract extraction status, left eye; Z98.41 Cataract extraction status, right eye; Z96.1 Presence of intraocular lens; Z82.49 Family history of ischemic heart disease and other diseases of the circulatory system
CPT/HCPCS: 36415; 70450; 71046; 80048; 80053; 81001; 82550; 83605; 83735; 84484; 85025; 85610; 87040; 87086; 94640; 96365; 96366; 99285

== ENCOUNTER → 2019-02-07 | Outpatient (CLI) | payer MEDICARE ==
[2019-02-07 10:57] LABS: INR 1.3 (<1.2); Prothrombin Time 12.9 sec (9.0-12.0)
== END ==
LOC: LABWHC1 10:18
DX: I48.91 Unspecified atrial fibrillation (principal)
CPT/HCPCS: 36415; 85610

== ENCOUNTER 2019-05-16 18:50 | Emergency (ER) | payer MEDICARE ==
[2019-05-16 18:55] VITALS: RESP 20; TEMP 98.1
[2019-05-16] MEDS ORDERED: cloNIDine HCL 0.1 MG TAB PO STA (19:11)
--- NOTE | 2019-05-16 19:17 | ED ---
General Adult HPI - General Chief complaint: Dizziness Stated complaint: Poss sepsis Time Seen by Provider: 05/16/19 19:00 Source: patient Mode of arrival: ambulatory Limitations: no limitations - History of Present Illness Initial comments: 69-year-old male patient presents to the emergency department today for evaluation of swelling and redness of the left foot and lower leg. Patient states he noticed the swelling this morning. Patient does have a history of sepsis secondary to cellulitis infections of the lower extremities once in January and once in August. Patient denies any fever or chills. Denies nausea or vomiting. Patient does admit to having dizziness earlier in the day however does report that he hadn't eaten, he did have improvement of symptoms after having food. Patient states that he wore a shoe causing wounds to the dorsal surface of his second and third toes which may be a source for infection. Patient denies any recent rash, shortness breath, chest pain, abdominal pain, nausea, vomiting, diarrhea, constipation, back pain, numbness, tingling, dizziness, weakness, hematuria, dysuria, urinary urgency, urinary frequency, headache, visual changes, or any other complaints. - Related Data Home Medications Medication Instructions Recorded Confirmed Albuterol Sulfate [Proventil Hfa] 2 puff INHALATION RT-Q6H PRN 02/25/16 12/04/18 Rosuvastatin [Crestor] 10 mg PO HS 02/25/16 12/04/18 Aspirin EC [Ecotrin Low Dose] 81 mg PO DAILY 12/04/18 12/04/18 Furosemide [Lasix] 20 mg PO DAILY 12/04/18 12/04/18 Indomethacin [Indocin] 50 mg PO BID PRN 12/04/18 12/04/18 Metoprolol Tartrate [Lopressor] 100 mg PO BID 12/04/18 12/04/18 Sildenafil Citrate 100 mg PO DIRECTED PRN 12/04/18 12/04/18 Warfarin Sodium [Coumadin] 7.5 mg PO SUTUWETHSA 12/04/18 12/04/18 Warfarin [Coumadin] 5 mg PO MOFR 12/04/18 12/04/18 Previous Rx's Medication Instructions Recorded cloNIDine HCL [Catapres] 0.1 mg PO TID #90 tab 03/09/16 Azithromycin [Zithromax Z-pack] 0 mg PO DIRECTED #6 tab 12/06/18 Cephalexin [Keflex] 500 mg PO Q8HR #21 cap 12/06/18 Omeprazole [PriLOSEC] 20 mg PO AC-BID #20 cap 12/06/18 Cephalexin [Keflex] 500 mg PO Q6HR #40 cap 05/16/19 Allergies Allergy/AdvReac Type Severity Reaction Status Date / Time benazepril Allergy THROAT Verified 05/16/19 18:55 Swelling duloxetine [From Cymbalta] Allergy THROAT Verified 05/16/19 18:55 Swelling amlodipine AdvReac HEADACHE Verified 05/16/19 18:55 atorvastatin [From Lipitor] AdvReac EDEMA Verified 05/16/19 18:55 pravastatin AdvReac MUSCLE PAIN Verified 05/16/19 18:55 simvastatin AdvReac MUSCLE PAIN Verified 05/16/19 18:55 Review of Systems ROS Statement: Those systems with pertinent positive or pertinent negative responses have been documented in the HPI. ROS Other: All systems not noted in ROS Statement are negative. Past Medical History Past Medical History: Atrial Fibrillation, GERD/Reflux, Hyperlipidemia, Hypertension, Osteoarthritis (OA) Additional Past Medical History / Comment(s): CURRENT: HAS BEEN HAVING OCCASIONAL CHEST PAIN/PRESSUE WITH SOB, hx of bilateral tinnitis, UTI, occasional back pain, hiatal hernia, past dysphagia related to allergic reaction to medication, past gout . History of Any Multi-Drug Resistant Organisms: None Reported Past Surgical History: Cardiac Ablation, Heart Catheterization With Stent, Or thopedic Surgery Additional Past Surgical History / Comment(s): LEFT KNEE surgery for injury in [place], LEFT ROTATOR CUFF, CARDIOVERSION X 2, colonoscopy with benign polypect rodolfo, bilateral cataract removals. Past Anesthesia/Blood Transfusion Reactions: No Reported Reaction Date of Last Stent Placement:: 1999 Past Psychological History: No Psychological Hx Reported Smoking Status: Former smoker Past Alcohol Use History: Occasional Past Drug Use History: None Reported - Past Family History Mother Family Medical History: No Reported History Additional Family Medical History / Comment(s): Mother of a sunstroke in her late 30's Father Family Medical History: Coronary Artery Disease (CAD) Additional Family Medical History / Comment(s): Father of heart disease (pt unsure if it was a [place]) in his early 40's General Exam Limitations: no limitations General appearance: alert, in no apparent distress, other (this is a well- developed, well-nourished adult male patient in no acute distress.) Eye exam: Present: normal appearance, PERRL, EOMI. Absent: scleral icterus, conjunctival injection, periorbital swelling ENT exam: Present: normal exam, normal oropharynx, mucous membranes moist Respiratory exam: Present: normal lung sounds bilaterally. Absent: respiratory distress, wheezes, rales, rhonchi, stridor Cardiovascular Exam: Present: regular rate, normal rhythm, normal heart sounds. Absent: systolic murmur, diastolic murmur, rubs, gallop, clicks GI/Abdominal exam: Present: soft, normal bowel sounds. Absent: distended, tenderness, guarding, rebound, rigid Extremities exam: Present: full ROM, normal capillary refill, other (There is erythema and soft tissue swelling noted on the left foot and left lower leg.skin is otherwise pink, warm, and dry. Cap refills less than 3 seconds.). Absent: tenderness, pedal edema, joint swelling, calf tenderness Neurological exam: Present: alert, oriented X3, CN II-XII intact Psychiatric exam: Present: normal affect, normal mood Skin exam: Present: warm, dry, intact, normal color. Absent: rash Course Vital Signs 05/16/19 18:52 Temperature 98.1 F Pulse Rate 63 Respiratory 20 Rate Blood Pressure 223/105 O2 Sat by Pulse 98 Oximetry Medical Decision Making - Medical Decision Making 69-year-old male patient presents to the emergency department today for evaluation of left lower extremity redness and swelling. Physical examination did reveal swelling and redness to the left dorsal foot especially over the left first MTP joint and the anterior aspect of the left lower leg. Patient is afebrile with normal vital signs. Labs reviewed and revealed normal white blood cell count, normal lactic acid. Ultrasound of the left lower external he was obtained and showed no evidence for DVT. I did discuss findings and results with the patient. We'll start Keflex for cellulitis. He is instructed to follow up his primary care physician, he does have an appointment tomorrow. Return parameters were discussed in detail. He verbalizes understanding and agrees with this plan. - Lab Data Result diagrams: 05/16/19 19:50 05/16/19 19:50 Lab Results 12/19/19 12/19/19 12/19/19 Range/Units 19:50 19:50 19:50 WBC 6.2 (3.8-10.6) k/uL RBC 4.76 (4.30-5.90) m/uL Hgb 14.7 (13.0-17.5) gm/dL Hct 42.7 (39.0-53.0) % MCV 89.7 (80.0-100.0) fL MCH 30.9 (25.0-35.0) pg MCHC 34.4 (31.0-37.0) g/dL RDW 13.0 (11.5-15.5) % Plt Count 141 L (150-450) k/uL Neutrophils % (Manual) 69 % Lymphocytes % (Manual) 18 % Monocytes % (Manual) 7 % Eosinophils % (Manual) 6 % Neutrophils # (Manual) 4.28 (1.3-7.7) k/uL Lymphocytes # (Manual) 1.12 (1.0-4.8) k/uL Monocytes # (Manual) 0.43 (0-1.0) k/uL Eosinophils # (Manual) 0.37 (0-0.7) k/uL Nucleated RBCs 0 (0-0) /100 WBC Manual Slide Review Performed PT (9.0-12.0) sec INR (<1.2) APTT (22.0-30.0) sec Sodium 136 L (137-145) mmol/L Potassium 4.5 (3.5-5.1) mmol/L Chloride 103 (98-107) mmol/L Carbon Dioxide 28 (22-30) mmol/L Anion Gap 5 mmol/L BUN 22 H (9-20) mg/dL Creatinine 1.29 H (0.66-1.25) mg/dL Est GFR (CKD-EPI)AfAm 65 (>60 ml/min/1.73 sqM) Est GFR (CKD-EPI)NonAf 56 (>60 ml/min/1.73 sqM) Glucose 132 H (74-99) mg/dL Plasma Lactic Acid Vish 1.0 (0.7-2.0) mmol/L Calcium 9.2 (8.4-10.2) mg/dL Total Bilirubin 0.6 (0.2-1.3) mg/dL AST 32 (17-59) U/L ALT 16 (4-49) U/L Alkaline Phosphatase 62 (38-126) U/L Total Protein 7.2 (6.3-8.2) g/dL Albumin 4.0 (3.5-5.0) g/dL Urine Color Urine Appearance (Clear) Urine pH (5.0-8.0) Ur Specific Allen (1.001-1.035) Urine Protein (Negative) Urine Glucose (UA) (Negative) Urine Ketones (Negative) Urine Blood (Negative) Urine Nitrite (Negative) Urine Bilirubin (Negative) Urine Urobilinogen (<2.0) mg/dL Ur Leukocyte Esterase (Negative) Urine RBC (0-5) /hpf Urine WBC (0-5) /hpf Ur Squamous Epith Cells (0-4) /hpf Urine Mucus (None) /hpf 05/16/19 05/16/19 Range/Units 19:50 19:50 WBC (3.8-10.6) k/uL RBC (4.30-5.90) m/uL Hgb (13.0-17.5) gm/dL Hct (39.0-53.0) % MCV (80.0-100.0) fL MCH (25.0-35.0) pg MCHC (31.0-37.0) g/dL RDW (11.5-15.5) % Plt Count (150-450) k/uL Neutrophils % (Manual) % Lymphocytes % (Manual) % Monocytes % (Manual) % Eosinophils % (Manual) % Neutrophils # (Manual) (1.3-7.7) k/uL Lymphocytes # (Manual) (1.0-4.8) k/uL Monocytes # (Manual) (0-1.0) k/uL Eosinophils # (Manual) (0-0.7) k/uL Nucleated RBCs (0-0) /100 WBC Manual Slide Review PT 18.5 H (9.0-12.0) sec INR 1.9 H (<1.2) APTT 37.1 H (22.0-30.0) sec Sodium (137-145) mmol/L Potassium (3.5-5.1) mmol/L Chloride (98-107) mmol/L Carbon Dioxide (22-30) mmol/L Anion Gap mmol/L BUN (9-20) mg/dL Creatinine (0.66-1.25) mg/dL Est GFR (CKD-EPI)AfAm (>60 ml/min/1.73 sqM) Est GFR (CKD-EPI)NonAf (>60 ml/min/1.73 sqM) Glucose (74-99) mg/dL Plasma Lactic Acid Vish (0.7-2.0) mmol/L Calcium (8.4-10.2) mg/dL Total Bilirubin (0.2-1.3) mg/dL AST (17-59) U/L ALT (4-49) U/L Alkaline Phosphatase (38-126) U/L Total Protein (6.3-8.2) g/dL Albumin (3.5-5.0) g/dL Urine Color Yellow Urine Appearance Clear (Clear) Urine pH 6.0 (5.0-8.0) Ur Specific Allen 1.016 (1.001-1.035) Urine Protein 1+ H (Negative) Urine Glucose (UA) Negative (Negative) Urine Ketones Negative (Negative) Urine Blood Trace H (Negative) Urine Nitrite Negative (Negative) Urine Bilirubin Negative (Negative) Urine Urobilinogen <2.0 (<2.0) mg/dL Ur Leukocyte Esterase Negative (Negative) Urine RBC 5 (0-5) /hpf Urine WBC 1 (0-5) /hpf Ur Squamous Epith Cells <1 (0-4) /hpf Urine Mucus Rare H (None) /hpf - Radiology Data Radiology results: report reviewed Ultrasound of the left lower extremity was obtained. Report reviewed in its entirety. Impression by Dr. Badillo shows negative exam. No evidence of DVT in the left leg. Disposition Clinical Impression: Left leg cellulitis Disposition: HOME SELF-CARE Condition: Good Instructions (If sedation given, give patient instructions): Cellulitis (ED) Additional Instructions: Increase fluids. Rest. Prescription in full. Return immediately for devel opment of fever or vomiting. Return for any other new, worsening, or concerning symptoms. Prescriptions: Cephalexin [Keflex] 500 mg PO Q6HR #40 cap Is patient prescribed a controlled substance at d/c from ED?: No Referrals: Dagoberto Weems DO [Primary Care Provider] - 1-2 days Time of Disposition: 21:06
[2019-05-16 20:13] LABS: Appearance,Urine Clear (Clear); Bilirubin,Urine Negative (Negative); Blood,Urine Trace (Negative); Color,Urine Yellow; Glucose,Urine (UA) Negative (Negative); Ketones,Urine Negative (Negative); Leukocyte Esterase,Urine Negative (Negative); Mucus,Urine Rare /hpf; Nitrite,Urine Negative (Negative); Protein,Urine 1+ (Negative); RBC,Urine 5 /hpf (0-5); Specific Gravity,Urine 1.016 (1.001-1.035); Squamous Epithelial Cell,Urine <1 /hpf (0-4); Urobilinogen,Urine <2.0 mg/dL (<2.0); WBC,Urine 1 /hpf (0-5)
[2019-05-16 20:16] LABS: HCT 42.7 % (39.0-53.0); HGB 14.7 gm/dL (13.0-17.5); MCH 30.9 pg (25.0-35.0); MCHC 34.4 g/dL (31.0-37.0); MCV 89.7 fL (80.0-100.0); Mean Platelet Volume 6.8; Platelet Count 141 k/uL (150-450); RBC 4.76 m/uL (4.30-5.90); WBC 6.2 k/uL (3.8-10.6)
[2019-05-16 20:17] LABS: Calcium 9.2 mg/dL (8.4-10.2); Potassium 4.5 mmol/L (3.5-5.1); Total Bilirubin 0.6 mg/dL (0.2-1.3); Total Protein 7.2 g/dL (6.3-8.2)
[2019-05-16 20:20] LABS: INR 1.9 (<1.2); Partial Thromboplastin Time 37.1 sec (22.0-30.0); Prothrombin Time 18.5 sec (9.0-12.0)
--- NOTE | 2019-05-16 20:40 | US ---
EXAMINATION TYPE: US venous doppler duplex LE LT DATE OF EXAM: 05/16/2019 8:26 PM COMPARISON: US 2019 CLINICAL HISTORY: Swelling. Swelling in left leg x 4 days. No hx of DVT. Patient takes warfarin. Hx v ein stripping bilaterally. SIDE PERFORMED: Left TECHNIQUE: The lower extremity deep venous system is examined utilizing real time linear array sonog conchita with graded compression, doppler sonography and color-flow sonography. VESSELS IMAGED: External Iliac Vein (EIV) Common Femoral Vein Deep Femoral Vein Greater Saphenous Vein * Femoral Vein Popliteal Vein Small Saphenous Vein * Proximal Calf Veins (* superficial vessels) Left Leg: No evidence of DVT in veins imaged at this time from prox calf veins to EIV. IMPRESSION: Negative exam. No evidence of deep venous thrombosis in the left leg.
[2019-05-16 20:48] LABS: Eosinophils # (M) 0.37 k/uL (0-0.7); Lymphocytes # (M) 1.12 k/uL (1.0-4.8); Monocytes # (M) 0.43 k/uL (0-1.0); Neutrophils # (M) 4.28 k/uL (1.3-7.7); Neutrophils % (M) 69 %; Nucleated Red Blood Cells 0 /100 WBC (0-0); Total Cells Counted 100
[2019-05-16] MEDS ORDERED: CEPHALEXIN 500MG STARTER PACK 4 CAP BTL PO STA (21:04)
[2019-05-16 21:21] VITALS: BP 160/92; PULSE 76
== END 2019-05-16 21:20 | disposition home or self-care (01) ==
LOC: EC 18:50
DX: L03.116 Cellulitis of left lower limb (principal); I48.91 Unspecified atrial fibrillation; K21.9 Gastro-esophageal reflux disease without esophagitis; E78.5 Hyperlipidemia, unspecified; I10 Essential (primary) hypertension; M19.90 Unspecified osteoarthritis, unspecified site; M10.9 Gout, unspecified; Z79.01 Long term (current) use of anticoagulants; Z79.82 Long term (current) use of aspirin; Z79.899 Other long term (current) drug therapy; Z88.8 Allergy status to other drugs, medicaments and biological substances; Z95.5 Presence of coronary angioplasty implant and graft; Z87.891 Personal history of nicotine dependence
CPT/HCPCS: 36415; 80053; 81001; 83605; 85025; 85610; 85730; 87040; 99284

== ENCOUNTER → 2020-03-09 | Outpatient (CLI) | payer MEDICARE ==
--- NOTE | 2020-03-09 15:30 | CT ---
EXAMINATION TYPE: CT chest wo con DATE OF EXAM: 03/09/2020 COMPARISON: 10/03/2014 HISTORY: Interstitial pulmonary disease. CT DLP: 1097.3 mGycm. Automated Exposure Control for Dose Reduction was Utilized. TECHNIQUE: CT scan of the thorax is performed without IV contrast. FINDINGS: LUNGS: Bilateral pleural-based thickening with coarsened in near interstitial and interlobular septal thickening compatible with diffuse chronic interstitial pulmonary lung disease likely in the basis o f fibrosis. No pleural calcifications are seen. There is basilar bronchiectasis. Basilar subsegmental consolidation most typical of atelectasis.. MEDIASTINUM: Lack of IV contrast is noted to limit evaluation for mediastinal and especially hilar ad enopathy. There are no definitive greater than 1 cm hilar or mediastinal lymph nodes. The heart is en larged and there are sternotomy wires. There is an aberrant right subclavian artery and extends poste rior to the esophagus and trachea result of vascular ring. Findings stable from prior. OTHER: Correlate for cholelithiasis. Splenic granuloma noted. Hypertrophic and degenerative changes i n the vertebral column. Sternotomy wires are noted.. IMPRESSION: 1. There is diffuse COPD with findings compatible with widespread interlobular septal thickening and chronic interstitial pulmonary lung disease correlate for pulmonary fibrosis. 2. Basilar subsegmental consolidation greater on the left most likely the basis of atelectasis. 3. Severe cardiomegaly. There is an aberrant right subclavian artery.
== END | disposition home or self-care (01) ==
LOC: RADCTMAIN 14:23
PROVIDERS: ATTEND Internal Medicine
DX: J44.9 Chronic obstructive pulmonary disease, unspecified (principal); J18.1 Lobar pneumonia, unspecified organism; I51.7 Cardiomegaly
CPT/HCPCS: 71250

== ENCOUNTER → 2020-07-20 | Outpatient (CLI) | payer MEDICARE ==
[2020-07-20 18:57] LABS: Basophils # (A) 0.06 X 10*3/uL (0.00-0.10); Basophils % (A) 0.8 %; Eosinophils # (A) 0.34 X 10*3/uL (0.04-0.35); Eosinophils % (A) 4.5 %; HCT 44.7 % (39.6-50.0); HGB 15.1 g/dL (13.0-17.0); Lymphocytes # (A) 1.06 X 10*3/uL (0.90-5.00); Lymphocytes % (A) 14.1 %; MCH 31.1 pg (27.0-32.0); MCHC 33.8 g/dL (32.0-37.0); Mean Platelet Volume 9.2 fL (9.5-12.2); Monocytes # (A) 0.67 X 10*3/uL (0.20-1.00); Monocytes % (A) 8.9 %; Neutrophils # (A) 5.38 X 10*3/uL (1.80-7.70); Neutrophils % (A) 71.4 %; Platelet Count 141 X 10*3/uL (140-440); RBC 4.86 X 10*6/uL (4.40-5.60); RDW 13.2 % (11.5-14.5); WBC 7.53 X 10*3/uL (4.50-10.00)
[2020-07-20 19:08] LABS: African American GFR (CKD) 64.1 (60.0-200.0); Albumin 4.3 g/dL (3.80-4.90); Albumin/Globulin Ratio 1.87 (1.60-3.17); Anion Gap 6.7 mmol/L (4.00-12.00); Calcium 9.3 mg/dL (8.7-10.3); Carbon Dioxide 27.3 mmol/L (21.6-31.8); Globulin 2.3 g/dL (1.6-3.3); Non-African American GFR(CKD) 55.3 (60.0-200.0); Potassium 5.3 mmol/L (3.5-5.5); Total Bilirubin 0.4 mg/dL (0.2-1.2); Total Protein 6.6 g/dL (6.2-8.2)
== END | disposition home or self-care (01) ==
LOC: LABWHC1 13:14
PROVIDERS: ATTEND Allergy & Immunology
DX: J98.4 Other disorders of lung (principal)
CPT/HCPCS: 36415; 80053; 82785; 85025

== ENCOUNTER 2020-11-10 08:30 | Day surgery (SDC) | payer MEDICARE ==
[2020-11-05 15:12] VITALS: BMI 27.7
[~2020-11-10 08:30] MED LIST: LACTATED RINGERS 1,000 ML IV SCH; LIDOCAINE 1% (10MG/ML) FOR IV START INTRADERMA PRN
[2020-11-10 09:29] VITALS: RESP 16; TEMP 97.5
[2020-11-10] MEDS ORDERED: LIDOCAINE 1% (10MG/ML) FOR IV START INTRADERMA ONE (09:35)
[2020-11-10] MEDS ORDERED: PROPOFOL 10 MG/ML 20 ML VIAL IV ONE (10:05)
[2020-11-10] MEDS ORDERED: LIDOCAINE 1% INJ 10MG/ML (20 ML MDV) ONE (10:05)
--- NOTE | 2020-11-10 10:08 | P.GSHP ---
History of Present Illness H&P Date: 11/10/20 Chief Complaint: Dysphagia, screening Patient here today for upper and lower endoscopy. Some increased morning coughing and dysphagia at times. Last colonoscopy 11 years ago. Says he had polyps at that time. Mild constipation occasionally. No rectal bleeding. No family history of colon cancer. Past Medical History Past Medical History: Atrial Fibrillation, Chest Pain / Angina, GERD/Reflux, Hyperlipidemia, Hypertension, Osteoarthritis (OA) Additional Past Medical History / Comment(s): CURRENT: HAS BEEN HAVING OCCASIONAL CHEST PAIN/PRESSUE WITH SOB, hx of bilateral tinnitis, UTI, occasional back pain, hiatal hernia, past dysphagia related to allergic reaction to medication, gout . History of Any Multi-Drug Resistant Organisms: None Reported Past Surgical History: Cardiac Ablation, Coronary Bypass/CABG, Heart Catheterization With Stent, Orthopedic Surgery Additional Past Surgical History / Comment(s): LEFT KNEE surgery for injury in [place], LEFT ROTATOR CUFF, CARDIOVERSION X 2, colonoscopy with benign polypectomy, bilateral cataract removals, quadruple bypass 03/13 Past Anesthesia/Blood Transfusion Reactions: No Reported Reaction Date of Last Stent Placement:: 1999 Smoking Status: Former smoker - Past Family History Mother Family Medical History: No Reported History Additional Family Medical History / Comment(s): Mother of a sunstroke in her late 30's Father Family Medical History: Coronary Artery Disease (CAD) Additional Family Medical History / Comment(s): Father of heart disease (pt unsure if it was a [place]) in his early 40's Medications and Allergies Home Medications Medication Instructions Recorded Confirmed Type Albuterol Sulfate [Proventil Hfa] 2 puff INHALATION RT-Q6H PRN 02/25/16 11/10/20 History Rosuvastatin [Crestor] 10 mg PO HS 02/25/16 11/10/20 History Aspirin EC [Ecotrin Low Dose] 81 mg PO DAILY 12/04/18 11/10/20 History Indomethacin [Indocin] 50 mg PO BID PRN 12/04/18 11/10/20 History Metoprolol Tartrate [Lopressor] 100 mg PO DAILY 12/04/18 11/10/20 History Sildenafil Citrate 100 mg PO DIRECTED PRN 12/04/18 11/10/20 History Warfarin Sodium [Coumadin] 7.5 mg PO SUTH 12/04/18 11/10/20 History Warfarin [Coumadin] 5 mg PO [id number] 12/04/18 11/10/20 History Loratadine [Claritin] 10 mg PO DAILY 11/05/20 11/10/20 History Mometasone Furoate [Asmanex Hfa] 2 puff INHALATION BID 11/05/20 11/10/20 History cloNIDine HCL [Catapres] 0.1 mg PO QID 11/05/20 11/10/20 History Allergies Allergy/AdvReac Type Severity Reaction Status Date / Time benazepril Allergy THROAT Verified 11/05/20 15:02 Swelling duloxetine [From Cymbalta] Allergy THROAT Verified 11/05/20 15:02 Swelling amlodipine AdvReac HEADACHE Verified 11/05/20 15:02 atorvastatin [From Lipitor] AdvReac EDEMA Verified 11/05/20 15:02 pravastatin AdvReac MUSCLE PAIN Verified 11/05/20 15:02 simvastatin AdvReac MUSCLE PAIN Verified 11/05/20 15:02 Surgical - Exam Vital Signs Temp Pulse Resp BP Pulse Ox 97.5 F L 74 16 172/84 93 L 11/10/20 09:24 11/10/20 09:24 11/10/20 09:24 11/10/20 09:24 11/10/20 09:24 Physical exam: General: Well-developed, well-nourished HEENT: Normocephalic, sclerae nonicteric Abdomen: Nontender, nondistended Extremities: No edema Neuro: Alert and oriented Assessment and Plan (1) Dysphagia Narrative/Plan: Will proceed with upper and lower endoscopy Current Visit: Yes Status: Acute Code(s): R13.10 - DYSPHAGIA, UNSPECIFIED SNOMED Code(s): 49799112
--- NOTE | 2020-11-10 10:17 | P.PCN ---
Date of Procedure: 11/10/20 Procedure(s) Performed: PREOPERATIVE DIAGNOSIS: Dysphagia, screening, history of polyps POSTOPERATIVE DIAGNOSIS: Mild Gastritis, small to moderate-sized hiatal hernia PROCEDURE: 1. EGD with biopsy 2. Colonoscopy [] ANESTHESIA: MAC SURGEON: Adam Cho M.D. SPECIMENS: Antrum ENDOSCOPIC PROCEDURE: The patient was on the endoscopy table in the left decubitus position. The Olympus gastroscope was inserted into the oropharynx and passed under direct visualization to the region of the third portion of the duodenum. From that point the scope was slowly withdrawn inspecting all surfaces carefully. There were no neoplastic inflammatory or polypoid lesions throughout the duodenum. The pylorus was widely patent. The stomach was carefully inspected. There was gastritis present. A biopsy of the antrum took place to rule out H. pylori. Retroflexion revealed a small to moderate sized hiatal hernia. The GE junction had very subtle stricture that did not appear to warrant dilation. The esophagus was then carefully examined. There were no neoplastic inflammatory or polypoid lesions throughout the visualized esophagus. The patient was kept on the endoscopy table in the left decubitus position. The Olympus colonoscope was inserted into the anus and passed under direct visualization to the base of the cecum. The appendiceal orifice was visualized. From that point the scope was slowly withdrawn inspecting all surfaces carefully. There were no neoplastic inflammatory or polypoid lesions throughout the cecum, ascending, transverse, descending, sigmoid and rectum. There was [] diverticulosis noted[]. Digital rectal examination was normal. The patient was taken to the recovery room in stable condition per anesthesia guidelines. RECOMMENDATIONS: []
[2020-11-10] MEDS ORDERED: LABETALOL SYRINGE 5 MG/ML IVP ONE ×2 (11:22→11:35)
[2020-11-10 12:11] VITALS: BP 172/84; PULSE 67
== END 2020-11-10 12:17 | disposition home or self-care (01) ==
LOC: ORWHC2ENDO 08:30
PROVIDERS: ATTEND Surgery
DX: Z12.11 Encounter for screening for malignant neoplasm of colon (principal); R13.10 Dysphagia, unspecified; Z86.010 Personal history of colon polyps; D12.2 Benign neoplasm of ascending colon; D12.3 Benign neoplasm of transverse colon; K21.9 Gastro-esophageal reflux disease without esophagitis; K29.50 Unspecified chronic gastritis without bleeding; D12.8 Benign neoplasm of rectum; K57.90 Diverticulosis of intestine, part unspecified, without perforation or abscess without bleeding; K44.9 Diaphragmatic hernia without obstruction or gangrene; E78.5 Hyperlipidemia, unspecified; I10 Essential (primary) hypertension; I48.91 Unspecified atrial fibrillation; I25.10 Atherosclerotic heart disease of native coronary artery without angina pectoris; Z87.891 Personal history of nicotine dependence; Z95.1 Presence of aortocoronary bypass graft; Z88.8 Allergy status to other drugs, medicaments and biological substances; Z79.899 Other long term (current) drug therapy; Z79.82 Long term (current) use of aspirin; M19.90 Unspecified osteoarthritis, unspecified site; M10.9 Gout, unspecified
CPT/HCPCS: 88305; 45385; 43239; J2001; J2704

== ENCOUNTER → 2020-12-18 | Outpatient (CLI) | payer MEDICARE ==
--- NOTE | 2020-12-18 15:45 | CT ---
EXAMINATION TYPE: CT chest wo con DATE OF EXAM: 12/18/2020 COMPARISON: 03/09/2020 HISTORY: Interstitial pulmonary disease CT DLP: 236 mGycm, Automated exposure control for dose reduction was used. CONTRAST: None TECHNIQUE: Axial images were obtained at 1 mm thick sections at 10 mm intervals. This will limit po rtions of the examination which may not be visualized within the [id number]-ofte. Images were obtained in the prone and supine views. FINDINGS: Portion of the thyroid visualized is normal. There is peripheral increased linear markings compatible some pulmonary fibrosis. Findings appear sim ilar or slightly progressive from the comparison. There is a 1.0 cm lymph node in the paratracheal. Additional prominent node up to 0.9 cm in the pret chacorta region. Lymphadenopathy is present previously. The ascending aorta diameter at the level of t he main pulmonary artery is 4.0 cm. The main pulmonary artery diameter at the bifurcation is 2.8 cm. Coronary artery calcification is present. Limited CT sections are obtained through the upper abdomen. Abdomen is essentially unremarkable. IMPRESSIONS: 1. Peripheral pulmonary fibrosis with emphysematous changes. 2. Continued similar appearance of enlarged lymphadenopathy in the pretracheal space
== END | disposition home or self-care (01) ==
LOC: RADCTMAIN 14:46
PROVIDERS: ATTEND Internal Medicine
DX: J84.10 Pulmonary fibrosis, unspecified (principal); J43.9 Emphysema, unspecified; R59.0 Localized enlarged lymph nodes
CPT/HCPCS: 71250

== ENCOUNTER → 2021-06-02 | Outpatient (CLI) | payer MEDICARE ==
--- NOTE | 2021-06-02 16:18 | CT ---
EXAMINATION TYPE: CT chest wo con DATE OF EXAM: 06/02/2021 COMPARISON: 12/18/2020 HISTORY: Interstitial pulmonary disease, pt states it is getting worse. CT DLP: 447.50 mGycm, Automated exposure control for dose reduction was used. CONTRAST: Performed injected with 0 mL of Isovue 300. TECHNIQUE: Axial images were obtained at 5 mm thick sections. Reconstructed images are reviewed on [employer] computer in the coronal plane. FINDINGS: Portion of the thyroid visualized is normal. Diffuse peripheral increased lung markings are present. At the lung bases there is some honeycombing. Findings are compatible with pulmonary fibrosis. Correlate for infectious etiologies superimposed. Note is made of a variant vasculature within the superior mediastinum including large caliber vessel crossing between the trachea and esophagus. There is a 1.2 cm pretracheal lymph node which is slightly larger than the previous measurements are 1.0 cm. Anterior lymph node measures 1.3 cm, previously measured 0.9 cm. There are scattered additi onal small lymph nodes within this anterior mediastinal. The ascending aorta diameter at the level of the main pulmonary artery is 3.8 cm. The main pulmonary artery diameter at the bifurcation is 2.8 cm. Coronary artery calcification is present. Limited CT sections are obtained through the upper abdomen. Cholelithiasis is present. There are calc ified granuloma within the spleen. IMPRESSIONS: 1. Increased size of the pretracheal lymphadenopathy. Consider PET CT for additional evaluation. 2. Pulmonary fibrosis. Consider superimposed infection. 3. 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
== END | disposition home or self-care (01) ==
LOC: RADCTMAIN 15:23
PROVIDERS: ATTEND Internal Medicine
DX: J84.10 Pulmonary fibrosis, unspecified (principal); R59.0 Localized enlarged lymph nodes; Q27.8 Other specified congenital malformations of peripheral vascular system
CPT/HCPCS: 71250

== ENCOUNTER 2021-10-23 07:32 | Inpatient (IN) | payer MEDICARE ==
[2021-10-23] MEDS ORDERED: methylPREDNISolone SOD SUCCI 125 MG/2 ML VIAL IV STA (07:46)
[2021-10-23] MEDS ORDERED: IPRATROPIUM-ALBUTEROL 3 ML NEB INHALATION STA (07:46)
--- NOTE | 2021-10-23 07:48 | ED ---
General Adult HPI - General Chief complaint: Shortness of Breath Stated complaint: Dyspnea Time Seen by Provider: 10/23/21 07:39 Source: patient, EMS, RN notes reviewed Mode of arrival: EMS Limitations: no limitations - History of Present Illness Initial comments: Patient is a pleasant 71-year-old male presenting to the emergency department with difficulty in breathing. Symptoms have progressed over the past 3-4 days. Patient does have chronic dyspnea associated with pulmonary fibrosis. Patient does have minimal cough, nonproductive sputum. No fever. No chest pain. Patient has become fatigued. Patient is exhausted after ambulating 20 steps to the restroom. - Related Data Home Medications Medication Instructions Recorded Confirmed Albuterol Sulfate [Proventil Hfa] 2 puff INHALATION RT-Q6H PRN 02/25/16 11/10/20 Rosuvastatin [Crestor] 10 mg PO HS 02/25/16 11/10/20 Aspirin EC [Ecotrin Low Dose] 81 mg PO DAILY 12/04/18 11/10/20 Indomethacin [Indocin] 50 mg PO BID PRN 12/04/18 11/10/20 Metoprolol Tartrate [Lopressor] 100 mg PO DAILY 12/04/18 11/10/20 Sildenafil Citrate 100 mg PO DIRECTED PRN 12/04/18 11/10/20 Warfarin Sodium [Coumadin] 7.5 mg PO SUTH 12/04/18 11/10/20 Warfarin [Coumadin] 5 mg PO MOTUWEFRSA 12/04/18 11/10/20 Loratadine [Claritin] 10 mg PO DAILY 11/05/20 11/10/20 Mometasone Furoate [Asmanex Hfa] 2 puff INHALATION BID 11/05/20 11/10/20 cloNIDine HCL [Catapres] 0.1 mg PO TID 11/05/20 11/10/20 Allergies Allergy/AdvReac Type Severity Reaction Status Date / Time benazepril Allergy THROAT Verified 11/05/20 15:02 Swelling duloxetine [From Cymbalta] Allergy THROAT Verified 11/05/20 15:02 Swelling amlodipine AdvReac HEADACHE Verified 11/05/20 15:02 atorvastatin [From Lipitor] AdvReac EDEMA Verified 11/05/20 15:02 pravastatin AdvReac MUSCLE PAIN Verified 11/05/20 15:02 simvastatin AdvReac MUSCLE PAIN Verified 11/05/20 15:02 Review of Systems ROS Statement: Those systems with pertinent positive or pertinent negative responses have been documented in the HPI. ROS Other: All systems not noted in ROS Statement are negative. Constitutional: Denies: fever Eyes: Denies: eye pain ENT: Denies: ear pain Respiratory: Reports: as per HPI, cough, dyspnea Cardiovascular: Denies: chest pain Endocrine: Reports: fatigue Gastrointestinal: Denies: abdominal pain Genitourinary: Denies: dysuria Musculoskeletal: Denies: back pain Skin: Denies: rash Neurological: Denies: weakness Past Medical History Past Medical History: Atrial Fibrillation, Chest Pain / Angina, GERD/Reflux, Hyperlipidemia, Hypertension, Osteoarthritis (OA) Additional Past Medical History / Comment(s): CURRENT: HAS BEEN HAVING OCCASIONAL CHEST PAIN/PRESSUE WITH SOB, hx of bilateral tinnitis, UTI, occasional back pain, hiatal hernia, past dysphagia related to allergic reaction to medication, gout . pulmonary fibrosis History of Any Multi-Drug Resistant Organisms: None Reported Past Surgical History: Cardiac Ablation, Coronary Bypass/CABG, Heart Catheterization With Stent, Orthopedic Surgery Additional Past Surgical History / Comment(s): LEFT KNEE surgery for injury in [place], LEFT ROTATOR CUFF, CARDIOVERSION X 2, colonoscopy with benign poly pectomy, bilateral cataract removals, quadruple bypass 03/13 Past Anesthesia/Blood Transfusion Reactions: No Reported Reaction Date of Last Stent Placement:: 1999 Past Psychological History: No Psychological Hx Reported Smoking Status: Former smoker Past Alcohol Use History: Occasional Past Drug Use History: None Reported - Past Family History Mother Family Medical History: No Reported History Additional Family Medical History / Comment(s): Mother of a sunstroke in her late 30's Father Family Medical History: Coronary Artery Disease (CAD) Additional Family Medical History / Comment(s): Father of heart disease (pt unsure if it was a [place]) in his early 40's General Exam Limitations: no limitations General appearance: alert Head exam: Present: normocephalic Eye exam: Present: normal appearance Respiratory exam: Present: decreased breath sounds, other (Tachypnea) Cardiovascular Exam: Present: irregular rhythm GI/Abdominal exam: Present: soft. Absent: tenderness Extremities exam: Present: normal inspection. Absent: pedal edema, calf tenderness Neurological exam: Present: alert Psychiatric exam: Present: normal affect, normal mood Skin exam: Present: normal color Course Vital Signs 10/23/21 10/23/21 10/23/21 07:33 08:09 08:19 Temperature 98.2 F Pulse Rate 64 60 71 Respiratory 28 H 28 H Rate Blood Pressure 174/129 150/92 O2 Sat by Pulse 100 98 Oximetry 10/23/21 08:21 Temperature Pulse Rate 60 Respiratory Rate Blood Pressure O2 Sat by Pulse Oximetry - Reevaluation(s) Reevaluation #1: 10/23/21 08:58 Patient does meet sepsis criteria diagnosed at 8:55 AM. Blood culture and lactic acid and IV antibiotics will also be ordered EKG Findings - EKG Comments: EKG Findings:: H a rhythm rate 63. For screening AV block OH 202. QRS 114. QT 408. QTC 416. Right axis. Normal QRS. No acute ST change. Medical Decision Making - Medical Decision Making Patient reevaluated and slightly improved. Patient family updated on results and plan. - Lab Data Result diagrams: 10/23/21 07:55 10/23/21 07:55 Lab Results 10/23/21 10/23/21 10/23/21 Range/Units 07:55 07:55 07:55 WBC 12.8 H (3.8-10.6) k/uL RBC 5.35 (4.30-5.90) m/uL Hgb 16.3 (13.0-17.5) gm/dL Hct 51.1 (39.0-53.0) % MCV 95.4 (80.0-100.0) fL MCH 30.5 (25.0-35.0) pg MCHC 32.0 (31.0-37.0) g/dL RDW 14.6 (11.5-15.5) % Plt Count 137 L (150-450) k/uL MPV 6.8 Neutrophils % 82 % Lymphocytes % 7 % Monocytes % 5 % Eosinophils % 3 % Basophils % 1 % Neutrophils # 10.5 H (1.3-7.7) k/uL Lymphocytes # 0.9 L (1.0-4.8) k/uL Monocytes # 0.7 (0-1.0) k/uL Eosinophils # 0.3 (0-0.7) k/uL Basophils # 0.1 (0-0.2) k/uL PT 30.9 H (9.0-12.0) sec INR 3.1 H (<1.2) APTT 35.1 H (22.0-30.0) sec Sodium 133 L (137-145) mmol/L Potassium 4.1 (3.5-5.1) mmol/L Chloride 91 L (98-107) mmol/L Carbon Dioxide 39 H (22-30) mmol/L Anion Gap 3 mmol/L BUN 26 H (9-20) mg/dL Creatinine 0.94 (0.66-1.25) mg/dL Est GFR (CKD-EPI)AfAm >90 (>60 ml/min/1.73 sqM) Est GFR (CKD-EPI)NonAf 82 (>60 ml/min/1.73 sqM) Glucose 108 H (74-99) mg/dL Plasma Lactic Acid Vish (0.7-2.0) mmol/L Calcium 8.7 (8.4-10.2) mg/dL Magnesium 1.9 (1.6-2.3) mg/dL Total Bilirubin 0.7 (0.2-1.3) mg/dL AST 30 (17-59) U/L ALT 19 (4-49) U/L Alkaline Phosphatase 61 (38-126) U/L NT-Pro-B Natriuret Pep pg/mL Total Protein 6.5 (6.3-8.2) g/dL Albumin 3.4 L (3.5-5.0) g/dL Coronavirus (PCR) (Not Detectd) Influenza Type A RNA (Not Detectd) Influenza Type B (PCR) (Not Detectd) 10/23/21 10/23/21 10/23/21 Range/Units 07:55 07:55 07:55 WBC (3.8-10.6) k/uL RBC (4.30-5.90) m/uL Hgb (13.0-17.5) gm/dL Hct (39.0-53.0) % MCV (80.0-100.0) fL MCH (25.0-35.0) pg MCHC (31.0-37.0) g/dL RDW (11.5-15.5) % Plt Count (150-450) k/uL MPV Neutrophils % % Lymphocytes % % Monocytes % % Eosinophils % % Basophils % % Neutrophils # (1.3-7.7) k/uL Lymphocytes # (1.0-4.8) k/uL Monocytes # (0-1.0) k/uL Eosinophils # (0-0.7) k/uL Basophils # (0-0.2) k/uL PT (9.0-12.0) sec INR (<1.2) APTT (22.0-30.0) sec Sodium (137-145) mmol/L Potassium (3.5-5.1) mmol/L Chloride (98-107) mmol/L Carbon Dioxide (22-30) mmol/L Anion Gap mmol/L BUN (9-20) mg/dL Creatinine (0.66-1.25) mg/dL Est GFR (CKD-EPI)AfAm (>60 ml/min/1.73 sqM) Est GFR (CKD-EPI)NonAf (>60 ml/min/1.73 sqM) Glucose (74-99) mg/dL Plasma Lactic Acid Vish 1.1 (0.7-2.0) mmol/L Calcium (8.4-10.2) mg/dL Magnesium (1.6-2.3) mg/dL Total Bilirubin (0.2-1.3) mg/dL AST (17-59) U/L ALT (4-49) U/L Alkaline Phosphatase (38-126) U/L NT-Pro-B Natriuret Pep 3210 pg/mL Total Protein (6.3-8.2) g/dL Albumin (3.5-5.0) g/dL Coronavirus (PCR) (Not Detectd) Influenza Type A RNA Not Detected (Not Detectd) Influenza Type B (PCR) Not Detected (Not Detectd) 10/23/21 Range/Units 07:55 WBC (3.8-10.6) k/uL RBC (4.30-5.90) m/uL Hgb (13.0-17.5) gm/dL Hct (39.0-53.0) % MCV (80.0-100.0) fL MCH (25.0-35.0) pg MCHC (31.0-37.0) g/dL RDW (11.5-15.5) % Plt Count (150-450) k/uL MPV Neutrophils % % Lymphocytes % % Monocytes % % Eosinophils % % Basophils % % Neutrophils # (1.3-7.7) k/uL Lymphocytes # (1.0-4.8) k/uL Monocytes # (0-1.0) k/uL Eosinophils # (0-0.7) k/uL Basophils # (0-0.2) k/uL PT (9.0-12.0) sec INR (<1.2) APTT (22.0-30.0) sec Sodium (137-145) mmol/L Potassium (3.5-5.1) mmol/L Chloride (98-107) mmol/L Carbon Dioxide (22-30) mmol/L Anion Gap mmol/L BUN (9-20) mg/dL Creatinine (0.66-1.25) mg/dL Est GFR (CKD-EPI)AfAm (>60 ml/min/1.73 sqM) Est GFR (CKD-EPI)NonAf (>60 ml/min/1.73 sqM) Glucose (74-99) mg/dL Plasma Lactic Acid Vish (0.7-2.0) mmol/L Calcium (8.4-10.2) mg/dL Magnesium (1.6-2.3) mg/dL Total Bilirubin (0.2-1.3) mg/dL AST (17-59) U/L ALT (4-49) U/L Alkaline Phosphatase (38-126) U/L NT-Pro-B Natriuret Pep pg/mL Total Protein (6.3-8.2) g/dL Albumin (3.5-5.0) g/dL Coronavirus (PCR) Not Detected (Not Detectd) Influenza Type A RNA (Not Detectd) Influenza Type B (PCR) (Not Detectd) - Radiology Data Radiology results: image reviewed (Chest x-ray shows diffuse patchy infiltrates) Critical Care Time Critical Care Time: Yes Total Critical Care Time: 33 Disposition Clinical Impression: Sepsis, Pneumonia Disposition: ADMITTED IP TO THIS HOSP Is patient prescribed a controlled substance at d/c from ED?: No Referrals: Dagoberto Weems DO [Primary Care Provider] - 1-2 days Time of Disposition: 08:58
--- NOTE | 2021-10-23 08:09 | XR ---
EXAMINATION TYPE: XR chest 2V DATE OF EXAM: 10/23/2021 COMPARISON: 70 01/15/2019 INDICATION: Difficulty breathing, short of breath x4 days TECHNIQUE: Frontal and lateral views of the chest are obtained. FINDINGS: The heart size is mild the prominent. The pulmonary vasculature is normal. Diffuse patchy infiltrates are present bilaterally. Correlate for pneumonia. Consider atypical pneumo juana. Sternotomy wires are in the midline from prior CABG. IMPRESSION: 1. Diffuse patchy infiltrates through the periphery of the bilateral lungs. Correlate for atypical pn eumonia. Follow-up to clearing is recommended.
[2021-10-23 08:30] LABS: ALT 19 U/L (4-49); AST 30 U/L (17-59); African American GFR (CKD) >90 (>60 ml/min/1.73 sqM); Albumin 3.4 g/dL (3.5-5.0); Alkaline Phosphatase 61 U/L (38-126); Blood Urea Nitrogen 26 mg/dL (9-20); Calcium 8.7 mg/dL (8.4-10.2); Chloride 91 mmol/L (98-107); Glucose 108 mg/dL (74-99); Magnesium 1.9 mg/dL (1.6-2.3); Non-African American GFR(CKD) 82 (>60 ml/min/1.73 sqM); Potassium 4.1 mmol/L (3.5-5.1); Sodium 133 mmol/L (137-145); Total Bilirubin 0.7 mg/dL (0.2-1.3); Total Protein 6.5 g/dL (6.3-8.2)
[2021-10-23 08:36] LABS: Anion Gap 3 mmol/L
[2021-10-23 08:39] LABS: Basophils # (A) 0.1 k/uL (0-0.2); Basophils % (A) 1 %; Eosinophils # (A) 0.3 k/uL (0-0.7); Eosinophils % (A) 3 %; HCT 51.1 % (39.0-53.0); HGB 16.3 gm/dL (13.0-17.5); INR 3.1 (<1.2); Lymphocytes # (A) 0.9 k/uL (1.0-4.8); Lymphocytes % (A) 7 %; MCH 30.5 pg (25.0-35.0); MCV 95.4 fL (80.0-100.0); Mean Platelet Volume 6.8; Monocytes # (A) 0.7 k/uL (0-1.0); Monocytes % (A) 5 %; Neutrophils # (A) 10.5 k/uL (1.3-7.7); Neutrophils % (A) 82 %; Partial Thromboplastin Time 35.1 sec (22.0-30.0); Platelet Count 137 k/uL (150-450); Prothrombin Time 30.9 sec (9.0-12.0); RBC 5.35 m/uL (4.30-5.90); RDW 14.6 % (11.5-15.5); WBC 12.8 k/uL (3.8-10.6)
[2021-10-23 08:40] LABS: Carbon Dioxide 39 mmol/L (22-30)
[2021-10-23] MEDS ORDERED: PNEUMONIA PROTOCOL UTILIZED 1 EACH MISC PO PRN (08:59)
[2021-10-23] MEDS ORDERED: IPRATROPIUM-ALBUTEROL 3 ML NEB INHALATION PRN (08:59)
[2021-10-23] MEDS ORDERED: AZITHROMYCIN 500 MG in SODIUM CHLORIDE 0.9% 250 ML IVPB STA (08:59)
[2021-10-23] MEDS ORDERED: ONDANSETRON 4 MG/2 ML VIAL IVP STA (10:20)
[2021-10-23] MEDS ORDERED: WARFARIN 5 MG TAB PO SCH (10:45)
[2021-10-23] MEDS: IPRATROPIUM-ALBUTEROL 3 ML NEB INHALATION SCH ×3 (10:49→19:41)
[2021-10-23] MEDS: methylPREDNISolone SOD SUCCI 125 MG/2 ML VIAL IV SCH ×3 (11:42→23:36)
--- NOTE | 2021-10-23 13:07 | P.CNPUL ---
History of Present Illness Consult date: 10/23/21 Reason for consult: dyspnea History of present illness: 71-year-old male patient who presented to hospital because of worsening shortness of breath. The patient is to have IPF and during a recent visit that our office he was told that his IPF was progressively getting worse and the patient was started treatment with Ofev. Noted the patient has been expressing worsening shortness of breath especially with activity. While at rest, the patient has no major complaints. He reports significant worsening in his performance status due to his chronic lung disease. He came into the emergency and the patient was getting more short of breath over the past few days. No chest pain. No pleurisy. No hemoptysis. No cough. No sputum production. No worsening in lower extremity edema. He is on oxygen at 3 L which is currently is at its baseline. The chest x-ray showed extensive bilateral pulmonary fibrosis. Underlying pneumonia cannot be ruled out. The patient is demented on long-term medical condition with warfarin regarding paroxysmal atrial fibrillation. Cardiac rhythm is sinus. He has no swelling in lower extremities. He has been fully vaccinated for COVID 19 and his COVID 19 by PCR was negative. Influenza screen was also negative. The rest of the blood work shows a white second of 12.8, electrolytes are all stable and the patient is chronic metabolic alkalosis with a serum bicarb of 39. Normal LFTs. Review of Systems Constitutional: Reports fatigue, Reports weakness Eyes: denies as per HPI, denies blurred vision, denies bulging eye, denies decreased vision, denies diplopia, denies discharge, denies dry eye, denies irritation, denies itching, denies pain, denies photophobia, denies loss of peripheral vision, denies loss of vision, denies tunnel vision/blind spots Ears: deny: decreased hearing, ear discharge, earache, tinnitus Ears, nose, mouth and throat: Reports as per HPI Breasts: absent: as per HPI, gynecomastia Cardiovascular: Reports decreased exercise tolerance, Reports dyspnea on exertion Respiratory: Reports cough, Reports dyspnea Gastrointestinal: Reports as per HPI Genitourinary: Reports as per HPI Musculoskeletal: Reports as per HPI Musculoskeletal: absent: ankle pain, ankle stiffness, ankle swelling Integumentary: Reports as per HPI Neurological: Reports as per HPI Psychiatric: Reports as per HPI Endocrine: Reports as per HPI, Reports fatigue Hematologic/Lymphatic: Reports as per HPI Allergic/Immunologic: Reports as per HPI Past Medical History Past Medical History: Atrial Fibrillation, Chest Pain / Angina, GERD/Reflux, Hyperlipidemia, Hypertension, Osteoarthritis (OA) Additional Past Medical History / Comment(s): IPF, chronic hypoxic respiratory failure maintained on oxygen at 3-1/2 L of home and he is on Ofev. Paroxysmal atrial fibrillation. CAD/ CABG. hx of bilateral tinnitis. UTI. occasional back pain. hiatal hernia, past dysphagia related to allergic reaction to medication,. gout History of Any Multi-Drug Resistant Organisms: None Reported Past Surgical History: Cardiac Ablation, Coronary Bypass/CABG, Heart Catheterization With Stent, Orthopedic Surgery Additional Past Surgical History / Comment(s): LEFT KNEE surgery for injury in [place], LEFT ROTATOR CUFF, CARDIOVERSION X 2, colonoscopy with benign polypectomy, bilateral cataract removals, quadruple bypass 03/13 Past Anesthesia/Blood Transfusion Reactions: No Reported Reaction Date of Last Stent Placement:: 1999 Past Psychological History: No Psychological Hx Reported Smoking Status: Former smoker Past Alcohol Use History: Occasional Past Drug Use History: None Reported - Past Family History Mother Family Medical History: No Reported History Additional Family Medical History / Comment(s): Mother of a sunstroke in her late 30's Father Family Medical History: Coronary Artery Disease (CAD) Additional Family Medical History / Comment(s): Father of heart disease (pt unsure if it was a [place]) in his early 40's Medications and Allergies Home Medications Medication Instructions Recorded Confirmed Type Albuterol Sulfate [Proventil Hfa] 2 puff INHALATION RT-Q6H PRN 02/25/16 11/10/20 History Rosuvastatin [Crestor] 10 mg PO HS 02/25/16 11/10/20 History Aspirin EC [Ecotrin Low Dose] 81 mg PO DAILY 12/04/18 11/10/20 History Indomethacin [Indocin] 50 mg PO BID PRN 12/04/18 11/10/20 History Metoprolol Tartrate [Lopressor] 100 mg PO DAILY 12/04/18 11/10/20 History Sildenafil Citrate 100 mg PO DIRECTED PRN 12/04/18 11/10/20 History Warfarin Sodium [Coumadin] 7.5 mg PO SUTH 12/04/18 11/10/20 History Warfarin [Coumadin] 5 mg PO MOTUWEFRSA 12/04/18 11/10/20 History Loratadine [Claritin] 10 mg PO DAILY 11/05/20 11/10/20 History Mometasone Furoate [Asmanex Hfa] 2 puff INHALATION BID 11/05/20 11/10/20 History cloNIDine HCL [Catapres] 0.1 mg PO TID 11/05/20 11/10/20 History Allergies Allergy/AdvReac Type Severity Reaction Status Date / Time benazepril Allergy THROAT Verified 11/05/20 15:02 Swelling duloxetine [From Cymbalta] Allergy THROAT Verified 11/05/20 15:02 Swelling amlodipine AdvReac HEADACHE Verified 11/05/20 15:02 atorvastatin [From Lipitor] AdvReac EDEMA Verified 11/05/20 15:02 pravastatin AdvReac MUSCLE PAIN Verified 11/05/20 15:02 simvastatin AdvReac MUSCLE PAIN Verified 11/05/20 15:02 Physical Exam Vitals: Vital Signs Temp Pulse Resp BP Pulse Ox 10/23/21 10:27 76 22 149/94 100 10/23/21 09:12 72 24 158/101 100 10/23/21 08:21 60 10/23/21 08:19 71 28 H 150/92 98 10/23/21 08:09 60 10/23/21 07:33 98.2 F 64 28 H 174/129 100 Intake and Output 10/22/21 10/23/21 10/23/21 22:59 06:59 14:59 Other: Weight 90.718 kg Gen. appearance, breathing is nonlabored and the patient is resting comfortably in bed at 3 L per minute nasal cannula Head exam was generally normal. There was no scleral icterus or corneal arcus. Mucous membranes were moist. Neck was supple and without jugular venous distension, thyromegaly, or carotid bruits. Carotids were easily palpable bilaterally. There was no adenopathy. Lungs sounds are diminished and the patient has coarse crackles in the mid and lower lung negrete bilaterally Cardiac exam revealed the PMI to be normally situated and sized. The rhythm was regular and no extrasystoles were noted during several minutes of auscultation. The first and second heart sounds were normal and physiologic splitting of the second heart sound was noted. There were no murmurs, rubs, clicks, or gallops. Abdominal exam revealed normal bowel sounds. The abdomen was soft, non-tender, and without masses, organomegaly, or appreciable enlargement of the abdominal aorta. Examination of the extremities revealed easily palpable radial, femoral and pedal pulses. There was no cyanosis, clubbing or edema. Examination of the skin revealed no evidence of significant rashes, suspicious appearing nevi or other concerning lesions. Neurologically, the patient is awake and alert and the patient does not have any focal neurological deficit. Cranial nerves are essentially intact. Results - Laboratory Findings CBC and BMP: 10/23/21 07:55 10/23/21 07:55 ABG WBC 12.8 k/uL (3.8-10.6) H 10/23/21 07:55 RBC 5.35 m/uL (4.30-5.90) 10/23/21 07:55 Hgb 16.3 gm/dL (13.0-17.5) 10/23/21 07:55 Hct 51.1 % (39.0-53.0) 10/23/21 07:55 MCV 95.4 fL (80.0-100.0) 10/23/21 07:55 MCH 30.5 pg (25.0-35.0) 10/23/21 07:55 MCHC 32.0 g/dL (31.0-37.0) 10/23/21 07:55 RDW 14.6 % (11.5-15.5) 10/23/21 07:55 Plt Count 137 k/uL (150-450) L 10/23/21 07:55 MPV 6.8 10/23/21 07:55 Neutrophils % 82 % 10/23/21 07:55 Lymphocytes % 7 % 10/23/21 07:55 Monocytes % 5 % 10/23/21 07:55 Eosinophils % 3 % 10/23/21 07:55 Basophils % 1 % 10/23/21 07:55 Neutrophils # 10.5 k/uL (1.3-7.7) H 10/23/21 07:55 Lymphocytes # 0.9 k/uL (1.0-4.8) L 10/23/21 07:55 Monocytes # 0.7 k/uL (0-1.0) 10/23/21 07:55 Eosinophils # 0.3 k/uL (0-0.7) 10/23/21 07:55 Basophils # 0.1 k/uL (0-0.2) 10/23/21 07:55 PT 30.9 sec (9.0-12.0) H 10/23/21 07:55 INR 3.1 (<1.2) H 10/23/21 07:55 APTT 35.1 sec (22.0-30.0) H 10/23/21 07:55 Sodium 133 mmol/L (137-145) L 10/23/21 07:55 Potassium 4.1 mmol/L (3.5-5.1) 10/23/21 07:55 Chloride 91 mmol/L (98-107) L 10/23/21 07:55 Carbon Dioxide 39 mmol/L (22-30) H 10/23/21 07:55 Anion Gap 3 mmol/L 10/23/21 07:55 BUN 26 mg/dL (9-20) H 10/23/21 07:55 Creatinine 0.94 mg/dL (0.66-1.25) 10/23/21 07:55 Est GFR (CKD-EPI)AfAm >90 (>60 ml/min/1.73 sqM) 10/23/21 07:55 Est GFR (CKD-EPI)NonAf 82 (>60 ml/min/1.73 sqM) 10/23/21 07:55 Glucose 108 mg/dL (74-99) H 10/23/21 07:55 Plasma Lactic Acid Vish 1.1 mmol/L (0.7-2.0) 10/23/21 07:55 Calcium 8.7 mg/dL (8.4-10.2) 10/23/21 07:55 Magnesium 1.9 mg/dL (1.6-2.3) 10/23/21 07:55 Total Bilirubin 0.7 mg/dL (0.2-1.3) 10/23/21 07:55 AST 30 U/L (17-59) 10/23/21 07:55 ALT 19 U/L (4-49) 10/23/21 07:55 Alkaline Phosphatase 61 U/L (38-126) 10/23/21 07:55 NT-Pro-B Natriuret Pep 3210 pg/mL 10/23/21 07:55 Total Protein 6.5 g/dL (6.3-8.2) 10/23/21 07:55 Albumin 3.4 g/dL (3.5-5.0) L 10/23/21 07:55 Coronavirus (PCR) Not Detected (Not Detectd) 10/23/21 07:55 Influenza Type A RNA Not Detected (Not Detectd) 10/23/21 07:55 Influenza Type B (PCR) Not Detected (Not Detectd) 10/23/21 07:55 PT/INR, D-dimer PT 30.9 sec (9.0-12.0) H 10/23/21 07:55 INR 3.1 (<1.2) H 10/23/21 07:55 Abnormal lab findings: Abnormal Labs 10/23/21 10/23/21 10/23/21 07:55 07:55 07:55 WBC 12.8 H Plt Count 137 L Neutrophils # 10.5 H Lymphocytes # 0.9 L PT 30.9 H INR 3.1 H APTT 35.1 H Sodium 133 L Chloride 91 L Carbon Dioxide 39 H BUN 26 H Glucose 108 H Albumin 3.4 L - Diagnostic Findings Chest x-ray: image reviewed Assessment and Plan Plan: Acute on chronic dyspnea likely due to progression of IPF. Superinfection/pneumonia/any other Pulmicort complications felt to be less likely at this point. Doubt pulmonary embolism as the patient has been on long- term anticoagulation with warfarin. The chest x-ray strictures showing worsening and ILD/fibrosis. Chronic hypoxic respiratory failure maintained on 3.5 L of O2 nasal cannula IPF maintained on Ofev on outpatient basis Coronary artery disease with previous bypass surgery History of hiatal hernia Gout Hyperlipidemia Hypertension Plan Patient is being treated with a combination of Rocephin and Zithromax and IV Solu-Medrol. No worsening in her oxygenation. Will check a pro-cholesterol level. I doubt underlying infection. We'll give the patient benefit of the doubt and try antibiotics and steroids. My impression is that the patient is having progressive worsening his IPF and this may be a rapid progression. We'll continue to follow. Continued evaluation with warfarin. Prognosis poor based on the above-mentioned comorbidities. Titrate oxygen flow to maintain saturation above 90% currently at 3 L.
[2021-10-23] MEDS: cloNIDine HCL 0.1 MG TAB PO SCH ×2 (14:55→21:54)
[2021-10-23] MEDS ORDERED: WARFARIN 0.5 MG TAB PO ONE (18:00)
[2021-10-23] MEDS: ACETAMINOPHEN TAB 500 MG TAB PO PRN (19:20)
[2021-10-24 05:08] LABS: INR 3.1 (<1.2); Prothrombin Time 30.8 sec (9.0-12.0)
[2021-10-24] MEDS: methylPREDNISolone SOD SUCCI 125 MG/2 ML VIAL IV SCH ×4 (05:35→23:38)
[2021-10-24] MEDS: IPRATROPIUM-ALBUTEROL 3 ML NEB INHALATION SCH ×4 (07:16→19:43)
--- NOTE | 2021-10-24 07:57 | XR ---
EXAMINATION TYPE: XR chest 2V DATE OF EXAM: 10/24/2021 COMPARISON: 10/15/2021 INDICATION: Pneumonia TECHNIQUE: Frontal and lateral views of the chest are obtained. FINDINGS: The heart size is mildly prominent. The pulmonary vasculature is normal. Diffuse patchy infiltrate is present. This appears stable IMPRESSION: 1. Stable diffuse scattered infiltrates. Correlate for atypical pneumonia. Continued follow-up is rec ommended
[2021-10-24] MEDS: METOPROLOL TARTRATE 50 MG TAB PO SCH (09:05)
[2021-10-24] MEDS: cloNIDine HCL 0.1 MG TAB PO SCH ×3 (09:05→19:24)
[2021-10-24] MEDS: ASPIRIN 81 MG PO SCH (09:05)
[2021-10-24] MEDS: AZITHROMYCIN 500 MG TAB PO SCH (09:06)
[2021-10-24] MEDS ORDERED: WARFARIN 5 MG TAB PO SCH (10:38)
--- NOTE | 2021-10-24 11:52 | P.PN ---
Subjective Progress Note Date: 10/24/21 71-year-old male patient who presented to hospital because of worsening shortness of breath. The patient is to have IPF and during a recent visit that our office he was told that his IPF was progressively getting worse and the patient was started treatment with Ofev. Noted the patient has been expressing worsening shortness of breath especially with activity. While at rest, the patient has no major complaints. He reports significant worsening in his performance status due to his chronic lung disease. He came into the emergency and the patient was getting more short of breath over the past few days. No chest pain. No pleurisy. No hemoptysis. No cough. No sputum production. No worsening in lower extremity edema. He is on oxygen at 3 L which is currently is at its baseline. The chest x-ray showed extensive bilateral pulmonary fibrosis. Underlying pneumonia cannot be ruled out. The patient is demented on long-term medical condition with warfarin regarding paroxysmal atrial fibril lation. Cardiac rhythm is sinus. He has no swelling in lower extremities. He has been fully vaccinated for COVID 19 and his COVID 19 by PCR was negative. Influenza screen was also negative. The rest of the blood work shows a white second of 12.8, electrolytes are all stable and the patient is chronic metabolic alkalosis with a serum bicarb of 39. Normal LFTs. On 10/24/2021, the patient is unchanged clinically the patient remains the same. He is a case of severe pulmonary fibrosis. I think his disease is consistent with progression of pulmonary fibrosis and the patient does not have any superinfection. Nevertheless, we'll giving him the benefit of the doubt by giving him some antibiotics and steroids. He is essentially the same as yesterday. No interval changes condition. Oxygen requirements are unchanged. His blood work shows an INR of 3.1. Objective - Vital Signs Vital signs: Vital Signs Temp 97.7 F 10/24/21 07:33 Pulse 65 10/24/21 07:33 Resp 20 10/24/21 07:33 BP 155/91 10/24/21 07:33 Pulse Ox 99 10/24/21 07:33 FiO2 Intake & Output 10/23/21 10/24/21 10/24/21 18:59 06:59 18:59 Weight 90.718 kg Other: # Voids 2 2 - Exam Gen. appearance, breathing is nonlabored and the patient is resting comfortably in bed at 3 L per minute nasal cannula Head exam was generally normal. There was no scleral icterus or corneal arcus. Mucous membranes were moist. Neck was supple and without jugular venous distension, thyromegaly, or carotid bruits. Carotids were easily palpable bilaterally. There was no adenopathy. Lungs sounds are diminished and the patient has coarse crackles in the mid and lower lung negrete bilaterally Cardiac exam revealed the PMI to be normally situated and sized. The rhythm was regular and no extrasystoles were noted during several minutes of auscultation. The first and second heart sounds were normal and physiologic splitting of the second heart sound was noted. There were no murmurs, rubs, clicks, or gallops. Abdominal exam revealed normal bowel sounds. The abdomen was soft, non-tender, and without masses, organomegaly, or appreciable enlargement of the abdominal aorta. Examination of the extremities revealed easily palpable radial, femoral and pedal pulses. There was no cyanosis, clubbing or edema. Examination of the skin revealed no evidence of significant rashes, suspicious appearing nevi or other concerning lesions. Neurologically, the patient is awake and alert and the patient does not have any focal neurological deficit. Cranial nerves are essentially intact. - Labs CBC & Chem 7: 10/23/21 07:55 10/23/21 07:55 Labs: Abnormal Lab Results - Last 24 Hours (Table) 10/24/21 Range/Units 04:21 PT 30.8 H (9.0-12.0) sec INR 3.1 H (<1.2) Assessment and Plan Plan: Acute on chronic dyspnea likely due to progression of IPF. Superinfection/pneumonia/any other Pulmicort complications felt to be less likely at this point. Doubt pulmonary embolism as the patient has been on long- term anticoagulation with warfarin. The chest x-ray strictures showing worsening and ILD/fibrosis. Chronic hypoxic respiratory failure maintained on 3.5 L of O2 nasal cannula IPF maintained on Ofev on outpatient basis Coronary artery disease with previous bypass surgery History of hiatal hernia Gout Hyperlipidemia Hypertension Plan Patient's condition is unchanged compared to yesterday. I believe his condition is consistent with progression pulmonary fibrosis. He is being given the benefit of the doubt with a combination of steroids and antibiotics. Patient is being treated with a combination of Rocephin and Zithromax and IV Solu-Medrol. No worsening in her oxygenation. Pro-calcitonin levels were low INR is therapeutic My impression is that the patient is having progressive worsening his IPF and this may be a rapid progression. We'll continue to follow. Continued evaluation with warfarin. Prognosis poor based on the above-mentioned comorbidities. Titrate oxygen flow to maintain saturation above 90% currently at 3 L.
--- NOTE | 2021-10-24 12:27 | P.HPIM ---
History of Present Illness H&P Date: 10/23/21 Chief Complaint: Shortness of breath 71-year-old male presenting to the emergency department with difficulty in breathing. Symptoms have progressed over the past 3-4 days. Patient does have chronic dyspnea associated with pulmonary fibrosis. Patient does have minimal cough, nonproductive sputum. No fever. No chest pain. Patient has become fatigued. Patient is exhausted after ambulating 20 steps to the restroom. Workup completed in ED reveals--- The chest x-ray showed extensive bilateral pulmonary fibrosis. Underlying pneumonia cannot be ruled out. He has been fully vaccinated for COVID 19 and his COVID 19 by PCR was negative. Influenza screen was also negative. Blood work shows a white second of 12.8, electrolytes are all stable and the patient is chronic metabolic alkalosis with a serum bicarb of 39. Normal LFTs. Review of Systems REVIEW OF SYSTEMS: CONSTITUTIONAL: No fever, no malaise, no fatigue. HEENT: No recent visual problems or hearing problems. Denied any sore throat. CARDIOVASCULAR: No chest pain, orthopnea, PND, no palpitations, no syncope. PULMONARY: No shortness of breath, no cough, no hemoptysis. GASTROINTESTINAL: No diarrhea, no nausea, no vomiting, no abdominal pain. NEUROLOGICAL: No headaches, no weakness, no numbness. HEMATOLOGICAL: Denies any bleeding or petechiae. GENITOURINARY: Denies any burning micturition, frequency, or urgency. MUSCULOSKELETAL/RHEUMATOLOGICAL: Denies any joint pain, swelling, or any muscle pain. ENDOCRINE: Denies any polyuria or polydipsia. The rest of the 14-point review of systems is negative. Past Medical History Past Medical History: Atrial Fibrillation, Chest Pain / Angina, GERD/Reflux, Hyperlipidemia, Hypertension, Osteoarthritis (OA) Additional Past Medical History / Comment(s): CURRENT: HAS BEEN HAVING OCCASIONAL CHEST PAIN/PRESSUE WITH SOB, hx of bilateral tinnitis, UTI, occasional back pain, hiatal hernia, past dysphagia related to allergic reaction to medication, gout . pulmonary fibrosis History of Any Multi-Drug Resistant Organisms: None Reported Past Surgical History: Cardiac Ablation, Coronary Bypass/CABG, Heart Catheterization With Stent, Orthopedic Surgery Additional Past Surgical History / Comment(s): LEFT KNEE surgery for injury in [place], LEFT ROTATOR CUFF, CARDIOVERSION X 2, colonoscopy with benign polypectomy, bilateral cataract removals, quadruple bypass 03/13 Past Anesthesia/Blood Transfusion Reactions: No Reported Reaction Date of Last Stent Placement:: 1999 Past Psychological History: No Psychological Hx Reported Smoking Status: Former smoker Past Alcohol Use History: Occasional Past Drug Use History: None Reported - Past Family History Mother Family Medical History: No Reported History Additional Family Medical History / Comment(s): Mother of a sunstroke in her late 30's Father Family Medical History: Coronary Artery Disease (CAD) Additional Family Medical History / Comment(s): Father of heart disease (pt unsure if it was a [place]) in his early 40's Medications and Allergies Home Medications Medication Instructions Recorded Confirmed Type Albuterol Sulfate [Proventil Hfa] 2 puff INHALATION RT-Q6H PRN 02/25/16 10/23/21 History Indomethacin [Indocin] 50 mg PO BID PRN 12/04/18 10/23/21 History Metoprolol Tartrate [Lopressor] 100 mg PO DAILY 12/04/18 10/23/21 History Warfarin Sodium [Coumadin] 7.5 mg PO MOWEFR@1800 12/04/18 10/23/21 History Warfarin [Coumadin] 5 mg PO SUTUTHSA@1800 12/04/18 10/23/21 History cloNIDine HCL [Catapres] 0.2 mg PO DAILY@0800 11/05/20 10/23/21 History ALPRAZolam [Xanax] 0.25 mg PO BID PRN 10/23/21 10/23/21 History Diclofenac Sodium Gel [Voltaren 2 - 4 gram TOPICAL QID PRN 10/23/21 10/23/21 History Gel] Escitalopram [Lexapro] 5 mg PO DAILY 10/23/21 10/23/21 History Mometasone Inhalr 220 Mcg/Puff 2 puff INHALATION RT-BID 10/23/21 10/23/21 History [Asmanex] Nintedanib Esylate [Ofev] 150 mg PO BID 10/23/21 10/23/21 History Rosuvastatin [Crestor] 10 mg PO HS 10/23/21 10/23/21 History cloNIDine HCL [Catapres] 0.1 mg PO BID@1800,2100 10/23/21 10/23/21 History predniSONE See Taper PO DAILY 10/23/21 10/23/21 History Allergies Allergy/AdvReac Type Severity Reaction Status Date / Time benazepril Allergy THROAT Verified 11/05/20 15:02 Swelling duloxetine [From Cymbalta] Allergy THROAT Verified 11/05/20 15:02 Swelling amlodipine AdvReac HEADACHE Verified 11/05/20 15:02 atorvastatin [From Lipitor] AdvReac EDEMA Verified 11/05/20 15:02 pravastatin AdvReac MUSCLE PAIN Verified 11/05/20 15:02 simvastatin AdvReac MUSCLE PAIN Verified 11/05/20 15:02 Physical Exam Vitals: Vital Signs Temp Pulse Resp BP Pulse Ox 10/23/21 09:12 72 24 158/101 100 10/23/21 08:21 60 10/23/21 08:19 71 28 H 150/92 98 10/23/21 08:09 60 10/23/21 07:33 98.2 F 64 28 H 174/129 100 Intake and Output 10/22/21 10/23/21 10/23/21 22:59 06:59 14:59 Other: Weight 90.718 kg PHYSICAL EXAMINATION: GENERAL: The patient is alert and oriented x3, not in any acute distress. Well developed, well nourished. HEENT: Pupils are round and equally reacting to light. EOMI. No scleral icterus. No conjunctival pallor. Normocephalic, atraumatic. No pharyngeal erythema. No thyromegaly. CARDIOVASCULAR: S1 and S2 present. No murmurs, rubs, or gallops. PULMONARY: Chest is clear to auscultation, no wheezing or crackles. ABDOMEN: Soft, nontender, nondistended, normoactive bowel sounds. No palpable organomegaly. MUSCULOSKELETAL: No joint swelling or deformity. EXTREMITIES: No cyanosis, clubbing, or pedal edema. NEUROLOGICAL: Gross neurological examination did not reveal any focal deficits. SKIN: No rashes. Results CBC & Chem 7: 10/23/21 07:55 10/23/21 07:55 Labs: Abnormal Lab Results - Last 24 Hours (Table) 10/23/21 10/23/21 10/23/21 Range/Units 07:55 07:55 07:55 WBC 12.8 H (3.8-10.6) k/uL Plt Count 137 L (150-450) k/uL Neutrophils # 10.5 H (1.3-7.7) k/uL Lymphocytes # 0.9 L (1.0-4.8) k/uL PT 30.9 H (9.0-12.0) sec INR 3.1 H (<1.2) APTT 35.1 H (22.0-30.0) sec Sodium 133 L (137-145) mmol/L Chloride 91 L (98-107) mmol/L Carbon Dioxide 39 H (22-30) mmol/L BUN 26 H (9-20) mg/dL Glucose 108 H (74-99) mg/dL Albumin 3.4 L (3.5-5.0) g/dL Assessment and Plan Assessment: 1. Community-acquired pneumonia; patient has been placed on IV Rocephin and azithromycin; monitor CBC, CRP and pro-calcitonin 2. Acute dyspnea/ acute on chronic hypoxic respiratory failure; patient remains on O2 per nasal cannula; we will titrate as needed; DuoNeb nebulizer treatments 3. Idiopathic pulmonary fibrosis; likely worsening; patient has been placed on IV steroids; of 8 pulmonary recommendations 4. Mild renal injury; slowly IV fluid hydration in form of a rate of 75 mL an hour; we will monitor strict JANE's, daily weights, renal function and electrolytes; avoid nephrotoxins 5. Coagulopathy; related to Coumadin; Coumadin and placed on hold; we will monitor PT/INR; consult pharmacy to dose Coumadin 6. Atrial fibrillation; remains rate controlled on metoprolol 100 mg daily; patient is currently on Coumadin for anticoagulation with INR at 3.1; we will place Coumadin on hold and consult pharmacy to dose Coumadin 7. Hypertension; stable on metoprolol 100 mg daily and clonidine 0.1 mg 3 times a day 8. Hyperlipidemia; continue with home dose of Crestor 10 mg by mouth daily at bedtime 9. Osteoarthritis/Gout; Indocin 50 mg twice a day when necessary DVT prophylaxis; SCDs/subcu heparin CODE STATUS; full code
[2021-10-24] MEDS ORDERED: WARFARIN 0.5 MG TAB PO ONE (18:00)
[2021-10-24] MEDS: ACETAMINOPHEN TAB 500 MG TAB PO PRN (19:24)
--- NOTE | 2021-10-24 19:46 | P.PN ---
Subjective Progress Note Date: 10/24/21 Principal diagnosis: Community-acquired pneumonia Acute on chronic hypoxic respiratory failure Worsening IPF 71-year-old male presenting to the emergency department with difficulty in breathing. Symptoms have progressed over the past 3-4 days. Patient does have chronic dyspnea associated with pulmonary fibrosis. Patient does have minimal cough, nonproductive sputum. No fever. No chest pain. Patient has become fatigued. Patient is exhausted after ambulating 20 steps to the restroom. Workup completed in ED reveals--- The chest x-ray showed extensive bilateral pulmonary fibrosis. Underlying pneumonia cannot be ruled out. He has been fully vaccinated for COVID 19 and his COVID 19 by PCR was negative. Influenza screen was also negative. Blood work shows a white second of 12.8, electrolytes are all stable and the patient is chronic metabolic alkalosis with a serum bicarb of 39. Normal LFTs. Objective - Vital Signs Vital signs: Vital Signs Temp 97.5 F L 10/24/21 14:00 Pulse 81 10/24/21 14:00 Resp 18 10/24/21 14:00 BP 162/99 10/24/21 14:00 Pulse Ox 99 10/24/21 14:00 FiO2 Intake & Output 10/23/21 10/24/21 10/24/21 18:59 06:59 18:59 Weight 90.718 kg Other: Voiding Method Toilet Urinal # Voids 2 2 - Exam GENERAL: The patient is alert and oriented x3, not in any acute distress. Well developed, well nourished. HEENT: Pupils are round and equally reacting to light. EOMI. No scleral icterus. No conjunctival pallor. Normocephalic, atraumatic. No pharyngeal erythema. No thyromegaly. CARDIOVASCULAR: S1 and S2 present. No murmurs, rubs, or gallops. PULMONARY: Chest is clear to auscultation, no wheezing or crackles. ABDOMEN: Soft, nontender, nondistended, normoactive bowel sounds. No palpable organomegaly. MUSCULOSKELETAL: No joint swelling or deformity. EXTREMITIES: No cyanosis, clubbing, or pedal edema. NEUROLOGICAL: Gross neurological examination did not reveal any focal deficits. SKIN: No rashes. - Labs CBC & Chem 7: 10/23/21 07:55 10/23/21 07:55 Labs: Abnormal Lab Results - Last 24 Hours (Table) 10/24/21 Range/Units 04:21 PT 30.8 H (9.0-12.0) sec INR 3.1 H (<1.2) Microbiology - Last 24 Hours (Table) 10/23/21 09:00 Blood Culture - Preliminary Blood No Growth after 24 hours 10/23/21 08:45 Blood Culture - Preliminary Blood No Growth after 24 hours Assessment and Plan Assessment: 1. Community-acquired pneumonia; patient has been placed on IV Rocephin and azithromycin; monitor CBC, CRP and pro-calcitonin 2. Acute dyspnea/ acute on chronic hypoxic respiratory failure; patient remains on O2 per nasal cannula; we will titrate as needed; DuoNeb nebulizer treatments 3. Idiopathic pulmonary fibrosis; likely worsening; patient has been placed on IV steroids; of 8 pulmonary recommendations 4. Mild renal injury; slowly IV fluid hydration in form of a rate of 75 mL an hour; we will monitor strict JANE's, daily weights, renal function and electrolytes; avoid nephrotoxins 5. Coagulopathy; related to Coumadin; Coumadin and placed on hold; we will monitor PT/INR; consult pharmacy to dose Coumadin 6. Atrial fibrillation; remains rate controlled on metoprolol 100 mg daily; patient is currently on Coumadin for anticoagulation with INR at 3.1; we will place Coumadin on hold and consult pharmacy to dose Coumadin 7. Hypertension; stable on metoprolol 100 mg daily and clonidine 0.1 mg 3 times a day 8. Hyperlipidemia; continue with home dose of Crestor 10 mg by mouth daily at bedtime 9. Osteoarthritis/Gout; Indocin 50 mg twice a day when necessary DVT prophylaxis; SCDs/subcu heparin CODE STATUS; full code
[2021-10-25 04:50] LABS: INR 1.8 (<1.2); Prothrombin Time 18.7 sec (9.0-12.0)
[2021-10-25] MEDS: methylPREDNISolone SOD SUCCI 125 MG/2 ML VIAL IV SCH (06:09)
[2021-10-25] MEDS: ACETAMINOPHEN TAB 500 MG TAB PO PRN ×2 (06:12→18:11)
[2021-10-25] MEDS: METOPROLOL TARTRATE 50 MG TAB PO SCH (08:04)
[2021-10-25] MEDS: ASPIRIN 81 MG PO SCH (08:04)
[2021-10-25] MEDS: AZITHROMYCIN 500 MG TAB PO SCH (08:04)
[2021-10-25] MEDS: cloNIDine HCL 0.1 MG TAB PO SCH ×3 (08:04→21:24)
[2021-10-25] MEDS: IPRATROPIUM-ALBUTEROL 3 ML NEB INHALATION SCH ×4 (08:59→19:19)
[2021-10-25] MEDS ORDERED: CALCIUM CARBONATE 500 MG CHEWABLE PO PRN (09:18)
[2021-10-25] MEDS ORDERED: CALCIUM CARBONATE 500 MG CHEWABLE PO ONE (09:47)
[2021-10-25] MEDS ORDERED: FAMOTIDINE 20 MG TAB PO STA (09:47)
[2021-10-25 11:08] VITALS: BMI 24.3
[2021-10-25] MEDS: predniSONE 20 MG TAB PO SCH (11:37)
--- NOTE | 2021-10-25 11:55 | P.PN ---
Subjective Progress Note Date: 10/25/21 71-year-old male patient who presented to hospital because of worsening shortness of breath. The patient is to have IPF and during a recent visit that our office he was told that his IPF was progressively getting worse and the patient was started treatment with Ofev. Noted the patient has been expressing worsening shortness of breath especially with activity. While at rest, the patient has no major complaints. He reports significant worsening in his performance status due to his chronic lung disease. He came into the emergency and the patient was getting more short of breath over the past few days. No chest pain. No pleurisy. No hemoptysis. No cough. No sputum production. No worsening in lower extremity edema. He is on oxygen at 3 L which is currently is at its baseline. The chest x-ray showed extensive bilateral pulmonary fibrosis. Underlying pneumonia cannot be ruled out. The patient is demented on long-term medical condition with warfarin regarding paroxysmal atrial fibril lation. Cardiac rhythm is sinus. He has no swelling in lower extremities. He has been fully vaccinated for COVID 19 and his COVID 19 by PCR was negative. Influenza screen was also negative. The rest of the blood work shows a white second of 12.8, electrolytes are all stable and the patient is chronic metabolic alkalosis with a serum bicarb of 39. Normal LFTs. On 10/24/2021, the patient is unchanged clinically the patient remains the same. He is a case of severe pulmonary fibrosis. I think his disease is consistent with progression of pulmonary fibrosis and the patient does not have any superinfection. Nevertheless, we'll giving him the benefit of the doubt by giving him some antibiotics and steroids. He is essentially the same as yesterday. No interval changes condition. Oxygen requirements are unchanged. His blood work shows an INR of 3.1. 10/25/2021, the patient is essentially the same without any interval changes condition. I think that the patient's condition is consistent with slow progression of his underlying pulmonary fibrosis. No indication for pneumonia or any other pulmonary complications complicating his chronic shortness of breath. He is currently on 3 L of oxygen by nasal cannula. He is on a combination of Rocephin as antibiotics and IV Solu-Medrol. INR today is 1.8 Objective - Vital Signs Vital signs: Vital Signs Temp 97.5 F L 10/25/21 08:00 Pulse 76 10/25/21 09:10 Resp 18 10/25/21 08:00 BP 176/68 10/25/21 08:00 Pulse Ox 99 10/25/21 08:00 FiO2 Intake & Output 10/24/21 10/25/21 10/25/21 18:59 06:59 18:59 Intake Total 1200 Balance 1200 Intake: Oral 1200 Other: Voiding Method Toilet Urinal # Voids 2 - Exam Gen. appearance, breathing is nonlabored and the patient is resting comfortably in bed at 3 L per minute nasal cannula Head exam was generally normal. There was no scleral icterus or corneal arcus. Mucous membranes were moist. Neck was supple and without jugular venous distension, thyromegaly, or carotid bruits. Carotids were easily palpable bilaterally. There was no adenopathy. Lungs sounds are diminished and the patient has coarse crackles in the mid and lower lung negrete bilaterally Cardiac exam revealed the PMI to be normally situated and sized. The rhythm was regular and no extrasystoles were noted during several minutes of auscultation. The first and second heart sounds were normal and physiologic splitting of the second heart sound was noted. There were no murmurs, rubs, clicks, or gallops. Abdominal exam revealed normal bowel sounds. The abdomen was soft, non-tender, and without masses, organomegaly, or appreciable enlargement of the abdominal aorta. Examination of the extremities revealed easily palpable radial, femoral and pe nu pulses. There was no cyanosis, clubbing or edema. Examination of the skin revealed no evidence of significant rashes, suspicious appearing nevi or other concerning lesions. Neurologically, the patient is awake and alert and the patient does not have any focal neurological deficit. Cranial nerves are essentially intact. - Labs CBC & Chem 7: 10/23/21 07:55 10/23/21 07:55 Labs: Abnormal Lab Results - Last 24 Hours (Table) 10/25/21 Range/Units 03:58 PT 18.7 H (9.0-12.0) sec INR 1.8 H (<1.2) Microbiology - Last 24 Hours (Table) 10/23/21 09:00 Blood Culture - Preliminary Blood No Growth after 24 hours 10/23/21 08:45 Blood Culture - Preliminary Blood No Growth after 24 hours Assessment and Plan Plan: Acute on chronic dyspnea likely due to progression of IPF. Superinfection/pneumonia/any other Pulmicort complications felt to be less likely at this point. Doubt pulmonary embolism as the patient has been on long- term anticoagulation with warfarin. The chest x-ray strictures showing worsening and ILD/fibrosis. Clinically unchanged Chronic hypoxic respiratory failure maintained on 3.5 L of O2 nasal cannula IPF maintained on Ofev on outpatient basis Coronary artery disease with previous bypass surgery History of hiatal hernia Gout Hyperlipidemia Hypertension Plan Clinically unchanged Patient's condition is unchanged compared to yesterday. I believe his condition is consistent with progression pulmonary fibrosis. He is being given the benefit of the doubt with a combination of steroids and antibiotics. Patient is being treated with a combination of Rocephin and Zithromax and IV Solu-Medrol. No worsening in her oxygenation. Pro-calcitonin levels were low INR is 1.8 Stop the IV Solu-Medrol and give the patient prednisone burst taper starting with 40 mg Stop the IV Rocephin My impression is that the patient is having progressive worsening his IPF and this may be a rapid progression. We'll continue to follow. Continued evaluation with warfarin. Prognosis poor based on the above-mentioned comorbidities. Titrate oxygen flow to maintain saturation above 90% currently at 3 L. The patient be taken off antibiotics and he can be potentially discharged home.
[2021-10-25] MEDS ORDERED: INSULIN ASPART (NovoLOG) 100 UNIT/ML VIAL SQ SCH (12:30)
--- NOTE | 2021-10-25 17:51 | P.PN ---
Subjective From the records: 71-year-old male presenting to the emergency department with difficulty in breathing. Symptoms have progressed over the past 3-4 days. Patient does have chronic dyspnea associated with pulmonary fibrosis. Patient does have minimal cough, nonproductive sputum. No fever. No chest pain. Patient has become fatigued. Patient is exhausted after ambulating 20 steps to the restroom. Workup completed in ED reveals--- The chest x-ray showed extensive bilateral pulmonary fibrosis. Underlying pneumonia cannot be ruled out. He has been fully vaccinated for COVID 19 and his COVID 19 by PCR was negative. Influenza screen was also negative. Blood work shows a white second of 12.8, electrolytes are all stable and the patient is chronic metabolic alkalosis with a serum bicarb of 39. Normal LFTs. I'm resuming care of the patient today 10/25/21 This is a pleasant 71 male who presents with respiratory distress thought sec ondary to progressive IPF, with pulmonary team following him closely. Also patient placed on antibiotics and steroids for possible elements of COPD exacerbation or pneumonia, patient showing minimal improving and slow improvement. Currently he is on Zithromax and ceftriaxone. INR 1.8 and warfarin just started today. At [facility] for hypertension, check ISS, start Pepcid and Tums Objective - Vital Signs Vital signs: Vital Signs Temp 97.5 F L 10/25/21 08:00 Pulse 76 10/25/21 09:10 Resp 18 10/25/21 08:00 BP 176/68 10/25/21 08:00 Pulse Ox 99 10/25/21 08:00 FiO2 Intake & Output 10/24/21 10/25/21 10/25/21 18:59 06:59 18:59 Intake Total 1200 Balance 1200 Intake: Oral 1200 Other: Voiding Method Toilet Urinal # Voids 2 - Exam GENERAL: The patient is alert and oriented x3, not in any acute distress. Well developed, well nourished. HEENT: Pupils are round and equally reacting to light. EOMI. No scleral icterus. No conjunctival pallor. Normocephalic, atraumatic. No pharyngeal erythema. No thyromegaly. CARDIOVASCULAR: S1 and S2 present. No murmurs, rubs, or gallops. -PULMONARY: Chest is clear to auscultation, no bilateral scattered wheezing and crepitation ABDOMEN: Soft, nontender, nondistended, normoactive bowel sounds. No palpable organomegaly. MUSCULOSKELETAL: No joint swelling or deformity. EXTREMITIES: No cyanosis, clubbing, or pedal edema. NEUROLOGICAL: Gross neurological examination did not reveal any focal deficits. SKIN: No rashes. no petechiae. - Labs CBC & Chem 7: 10/23/21 07:55 10/23/21 07:55 Labs: Abnormal Lab Results - Last 24 Hours (Table) 10/25/21 Range/Units 03:58 PT 18.7 H (9.0-12.0) sec INR 1.8 H (<1.2) Microbiology - Last 24 Hours (Table) 10/23/21 09:00 Blood Culture - Preliminary Blood No Growth after 24 hours 10/23/21 08:45 Blood Culture - Preliminary Blood No Growth after 24 hours Assessment and Plan Assessment: Idiopathic pulmonary fibrosis, progressive Chronic hypoxic respiratory failure Possible elements of COPD exacerbation Possible element of pneumonia versus acute tracheobronchitis Chronic atrial fibrillation, on Coumadin Hypertension Hyperlipidemia History of osteoarthritis Plan: This is a pleasant 71 years old male with IPS Pulmonary team on the case Continue with prednisone Continue with antibiotic Continue with warfarin At [facility] and monitor blood pressure Labs and medication were reviewed.. Continue same treatment. Continue with symptomatic treatment. Resume home medication. Monitor lytes and vitals. DVT and GI prophylaxis. Further recommendations as per clinical course of the patient DVT prophylaxis: Coumadine GI prophylaxis: Pepcid Prognosis is guarded
[2021-10-25] MEDS ORDERED: WARFARIN 5 MG TAB PO ONE (18:00)
[2021-10-25] MEDS: MELATONIN 3 MG TABLET PO SCH (21:24)
[2021-10-26 05:26] LABS: INR 1.4 (<1.2); Prothrombin Time 14.4 sec (9.0-12.0)
[2021-10-26] MEDS: IPRATROPIUM-ALBUTEROL 3 ML NEB INHALATION SCH ×4 (08:24→20:44)
[2021-10-26] MEDS: cloNIDine HCL 0.1 MG TAB PO SCH ×3 (08:36→21:24)
[2021-10-26] MEDS: METOPROLOL TARTRATE 50 MG TAB PO SCH (08:36)
[2021-10-26] MEDS: ASPIRIN 81 MG PO SCH (08:36)
[2021-10-26] MEDS: predniSONE 20 MG TAB PO SCH (08:36)
[2021-10-26] MEDS: FAMOTIDINE 20 MG TAB PO SCH (08:36)
--- NOTE | 2021-10-26 12:06 | P.PN ---
Subjective From the records: 71-year-old male presenting to the emergency department with difficulty in breathing. Symptoms have progressed over the past 3-4 days. Patient does have chronic dyspnea associated with pulmonary fibrosis. Patient does have minimal cough, nonproductive sputum. No fever. No chest pain. Patient has become fatigued. Patient is exhausted after ambulating 20 steps to the restroom. Workup completed in ED reveals--- The chest x-ray showed extensive bilateral pulmonary fibrosis. Underlying pneumonia cannot be ruled out. He has been fully vaccinated for COVID 19 and his COVID 19 by PCR was negative. Influenza screen was also negative. Blood work shows a white second of 12.8, electrolytes are all stable and the patient is chronic metabolic alkalosis with a serum bicarb of 39. Normal LFTs. I'm resuming care of the patient today 10/25/21 This is a pleasant 71 male who presents with respiratory distress thought sec ondary to progressive IPF, with pulmonary team following him closely. Also patient placed on antibiotics and steroids for possible elements of COPD exacerbation or pneumonia, patient showing minimal improving and slow improvement. Currently he is on Zithromax and ceftriaxone. INR 1.8 and warfarin just started today. At [facility] for hypertension, check ISS, start Pepcid and Tums Patient still continued to improve slowly and gradually, he still have dyspnea on and off, we'll to walk to the bathroom but he got also exertional dyspnea. I explained for the patient his illness could be due to progressive fibrosis, however is been treated for possible reversible elements of pneumonia and COPD, spellcalcitonin is normal so suspicion of infection is low. Currently he is kept on Zithromax and ceftriaxone and prednisone 40 mg. Pulmonary team following the patient closely We going to ask for PT/OT evaluation, patient informed and he agrees to go to rehab if needed 2. Also he is on Coumadin and his INR went down to 1.4 despite he got 5 mg today, we going to give him 8 mg today and check INR tomorrow. Objective - Vital Signs Vital signs: Vital Signs Temp 97.8 F 10/26/21 08:00 Pulse 85 10/26/21 08:34 Resp 20 10/26/21 08:00 BP 155/92 10/26/21 08:00 Pulse Ox 97 10/26/21 08:25 FiO2 Intake & Output 10/25/21 10/26/21 10/26/21 18:59 06:59 18:59 Intake Total 720 Balance 720 Weight 90.718 kg Intake: Oral 720 Other: Voiding Method Toilet Toilet Urinal Urinal # Voids 4 - Exam GENERAL: The patient is alert and oriented x3, not in any acute distress. Well developed, well nourished. HEENT: Pupils are round and equally reacting to light. EOMI. No scleral icterus. No conjunctival pallor. Normocephalic, atraumatic. No pharyngeal erythema. No thyromegaly. CARDIOVASCULAR: S1 and S2 present. No murmurs, rubs, or gallops. -PULMONARY: Chest is clear to auscultation, no bilateral scattered wheezing and crepitation ABDOMEN: Soft, nontender, nondistended, normoactive bowel sounds. No palpable organomegaly. MUSCULOSKELETAL: No joint swelling or deformity. EXTREMITIES: No cyanosis, clubbing, or pedal edema. NEUROLOGICAL: Gross neurological examination did not reveal any focal deficits. SKIN: No rashes. no petechiae. - Labs CBC & Chem 7: 10/23/21 07:55 10/23/21 07:55 Labs: Abnormal Lab Results - Last 24 Hours (Table) 10/26/21 Range/Units 03:43 PT 14.4 H (9.0-12.0) sec INR 1.4 H (<1.2) Microbiology - Last 24 Hours (Table) 10/23/21 09:00 Blood Culture - Preliminary Blood No Growth after 72 hours 10/23/21 08:45 Blood Culture - Preliminary Blood No Growth after 72 hours Assessment and Plan Assessment: Idiopathic pulmonary fibrosis, progressive Chronic hypoxic respiratory failure Possible elements of COPD exacerbation Possible element of pneumonia versus acute tracheobronchitis Chronic atrial fibrillation, on Coumadin Hypertension Hyperlipidemia History of osteoarthritis Plan: This is a pleasant 71 years old male with IPS Pulmonary team on the case Continue with prednisone Continue with antibiotic Continue with warfarin At [facility] and monitor blood pressure Labs and medication were reviewed.. Continue same treatment. Continue with symptomatic treatment. Resume home medication. Monitor lytes and vitals. DVT and GI prophylaxis. Further recommendations as per clinical course of the patient DVT prophylaxis: Coumadine GI prophylaxis: Pepcid Prognosis is guarded
--- NOTE | 2021-10-26 14:18 | P.PN ---
Subjective Progress Note Date: 10/26/21 Principal diagnosis: Shortness of breath 71-year-old male patient who presented to hospital because of worsening shortness of breath. The patient is to have IPF and during a recent visit that our office he was told that his IPF was progressively getting worse and the patient was started treatment with Ofev. Noted the patient has been expressing worsening shortness of breath especially with activity. While at rest, the patient has no major complaints. He reports significant worsening in his performance status due to his chronic lung disease. He came into the emergency and the patient was getting more short of breath over the past few days. No chest pain. No pleurisy. No hemoptysis. No cough. No sputum production. No worsening in lower extremity edema. He is on oxygen at 3 L which is currently is at its baseline. The chest x-ray showed extensive bilateral pulmonary fibrosis. Underlying pneumonia cannot be ruled out. The patient is demented on long-term medical condition with warfarin regarding paroxysmal atrial fibrillation. Cardiac rhythm is sinus. He has no swelling in lower extremities. He has been fully vaccinated for COVID 19 and his COVID 19 by PCR was negative. Influenza screen was also negative. The rest of the blood work shows a white second of 12.8, electrolytes are all stable and the patient is chronic metabolic alkalosis with a serum bicarb of 39. Normal LFTs. On 10/24/2021, the patient is unchanged clinically the patient remains the same. He is a case of severe pulmonary fibrosis. I think his disease is consistent with progression of pulmonary fibrosis and the patient does not have any superinfection. Nevertheless, we'll giving him the benefit of the doubt by giving him some antibiotics and steroids. He is essentially the same as yesterday. No interval changes condition. Oxygen requirements are unchanged. His blood work shows an INR of 3.1. 10/25/2021, the patient is essentially the same without any interval changes condition. I think that the patient's condition is consistent with slow progression of his underlying pulmonary fibrosis. No indication for pneumonia or any other pulmonary complications complicating his chronic shortness of breath. He is currently on 3 L of oxygen by nasal cannula. He is on a combination of Rocephin as antibiotics and IV Solu-Medrol. INR today is 1.8 On 10/26/2021 patient seen in follow-up on medical surgical floor. Patient's states he is short of breath with any exertion and even with conversation, he remains on 3 L of oxygen and this is what he usually wears at home on a regular basis for recently established diagnosis of IPF. On 3-1/2 L of oxygen his pulse ox is 95%. AFebrile, occasional dry cough, no phlegm production, no hemoptysis, no fever or chills, signs have been stable. His chest x-ray showed stable diffuse scattered infiltrates stable in appearance. Patient remains on prednisone, 40 mg daily. he remains on Ofev. Is on nebulized bronchodilators, he is on Coumadin for history of atrial fibrillation. His lab work showed negative per LEVEL OF 0.05, he tested negative for ova 19, influenza A and B, his white count on admission was 12.8, hemoglobin was 16.3. Today's INR is 1.4. No nausea vomiting or diarrhea, no abdominal pain. Objective - Vital Signs Vital signs: Vital Signs Temp 97.8 F 10/26/21 08:00 Pulse 74 10/26/21 12:17 Resp 20 10/26/21 08:00 BP 155/92 10/26/21 08:00 Pulse Ox 97 10/26/21 08:25 FiO2 Intake & Output 10/25/21 10/26/21 10/26/21 18:59 06:59 18:59 Intake Total 720 Balance 720 Weight 90.718 kg Intake: Oral 720 Other: Voiding Method Toilet Toilet Urinal Urinal # Voids 4 - Exam GENERAL EXAM: Alert, very pleasant, 71-year-old, on 3 L of oxygen, pulse ox of 97% comfortable in no apparent distress. HEAD: Normocephalic/atraumatic. EYES: Normal reaction of pupils, equal size. Conjunctiva pink, sclera white. NOSE: Clear with pink turbinates. THROAT: No erythema or exudates. NECK: No masses, no JVD, no thyroid enlargement, no adenopathy. CHEST: No chest wall deformity. Symmetrical expansion. LUNGS: Equal air entry with diffuse crackles at bilateral bases CVS: Regular rate and rhythm, normal S1 and S2, no gallops, no murmurs, no rubs ABDOMEN: Soft, nontender. No hepatosplenomegaly, normal bowel sounds, no guarding or rigidity. EXTREMITIES: No clubbing, no edema, no cyanosis, 2+ pulses and upper and lower extremities. MUSCULOSKELETAL: Muscle strength and tone normal. SPINE: No scoliosis or deformity SKIN: No rashes CENTRAL NERVOUS SYSTEM: Alert and oriented -3. No focal deficits, tone is normal in all 4 extremities. PSYCHIATRIC: Alert and oriented -3. Appropriate affect. Intact judgment and insight. - Labs CBC & Chem 7: 10/23/21 07:55 10/23/21 07:55 Labs: Abnormal Lab Results - Last 24 Hours (Table) 10/26/21 Range/Units 03:43 PT 14.4 H (9.0-12.0) sec INR 1.4 H (<1.2) Microbiology - Last 24 Hours (Table) 10/23/21 09:00 Blood Culture - Preliminary Blood No Growth after 72 hours 10/23/21 08:45 Blood Culture - Preliminary Blood No Growth after 72 hours Assessment and Plan Plan: Assessment: #1. Acute on chronic dyspnea related to likely progression of IPF. Superinfection/pneumonia felt to be less likely, dull possibility of pulmonary embolism as the patient has been on long-term anticoagulation with Coumadin. Chest x-ray is showing bilateral infiltrates, worsening ILD/fibrosis. #2. Chronic hypoxic respiratory failure on 3 L at home on a regular basis #3. IPF maintained on Ofev #4. Coronary artery disease with previous bypass surgery #5. History of hiatal hernia #6. Gout #7. Hyperlipidemia #8. Hypertension Plan: Continue oral prednisone Antibiotics have been discontinued Possibility of pneumonia was doubtful, based on negative for calcitonin Continue nebulized bronchodilators Oxygenation has remained stable but patient is very short of breath with any exertion Coumadin dosing per pharmacy Vital signs have been stable We'll continue to follow his progress Overall chcf prognosis is quite poor I have personally seen and examined the patient, performed the documentation and the assessment and plan as written. Number of minutes spent on the visit: [10] Time with Patient: Less than 30
[2021-10-26] MEDS ORDERED: ALPRAZolam 0.25 MG TAB PO PRN (14:47)
[2021-10-26] MEDS ORDERED: WARFARIN 3 MG TAB PO ONE (18:00)
[2021-10-26] MEDS ORDERED: WARFARIN 2 MG TAB PO ONE (18:00)
[2021-10-26] MEDS: MELATONIN 3 MG TABLET PO SCH (21:25)
[2021-10-27] MEDS: hydrALAZINE HCL 50 MG TAB PO SCH ×4 (04:45→22:52)
[2021-10-27] MEDS: IPRATROPIUM-ALBUTEROL 3 ML NEB INHALATION SCH ×4 (08:25→20:47)
[2021-10-27] MEDS: predniSONE 20 MG TAB PO SCH (08:54)
[2021-10-27] MEDS: cloNIDine HCL 0.1 MG TAB PO SCH ×3 (08:55→21:37)
[2021-10-27] MEDS: FAMOTIDINE 20 MG TAB PO SCH (08:55)
[2021-10-27] MEDS: METOPROLOL TARTRATE 50 MG TAB PO SCH (08:55)
[2021-10-27] MEDS: ASPIRIN 81 MG PO SCH (08:55)
--- NOTE | 2021-10-27 11:33 | P.PN ---
Subjective Progress Note Date: 10/27/21 Principal diagnosis: Shortness of breath 71-year-old male patient who presented to hospital because of worsening shortness of breath. The patient is to have IPF and during a recent visit that our office he was told that his IPF was progressively getting worse and the patient was started treatment with Ofev. Noted the patient has been expressing worsening shortness of breath especially with activity. While at rest, the patient has no major complaints. He reports significant worsening in his performance status due to his chronic lung disease. He came into the emergency and the patient was getting more short of breath over the past few days. No chest pain. No pleurisy. No hemoptysis. No cough. No sputum production. No worsening in lower extremity edema. He is on oxygen at 3 L which is currently is at its baseline. The chest x-ray showed extensive bilateral pulmonary fibrosis. Underlying pneumonia cannot be ruled out. The patient is demented on long-term medical condition with warfarin regarding paroxysmal atrial fibrillation. Cardiac rhythm is sinus. He has no swelling in lower extremities. He has been fully vaccinated for COVID 19 and his COVID 19 by PCR was negative. Influenza screen was also negative. The rest of the blood work shows a white second of 12.8, electrolytes are all stable and the patient is chronic metabolic alkalosis with a serum bicarb of 39. Normal LFTs. On 10/24/2021, the patient is unchanged clinically the patient remains the same. He is a case of severe pulmonary fibrosis. I think his disease is consistent with progression of pulmonary fibrosis and the patient does not have any superinfection. Nevertheless, we'll giving him the benefit of the doubt by giving him some antibiotics and steroids. He is essentially the same as yesterday. No interval changes condition. Oxygen requirements are unchanged. His blood work shows an INR of 3.1. 10/25/2021, the patient is essentially the same without any interval changes condition. I think that the patient's condition is consistent with slow progression of his underlying pulmonary fibrosis. No indication for pneumonia or any other pulmonary complications complicating his chronic shortness of breath. He is currently on 3 L of oxygen by nasal cannula. He is on a combination of Rocephin as antibiotics and IV Solu-Medrol. INR today is 1.8 On 10/26/2021 patient seen in follow-up on medical surgical floor. Patient's states he is short of breath with any exertion and even with conversation, he remains on 3 L of oxygen and this is what he usually wears at home on a regular basis for recently established diagnosis of IPF. On 3-1/2 L of oxygen his pulse ox is 95%. AFebrile, occasional dry cough, no phlegm production, no hemoptysis, no fever or chills, signs have been stable. His chest x-ray showed stable diffuse scattered infiltrates stable in appearance. Patient remains on prednisone, 40 mg daily. he remains on Ofev. Is on nebulized bronchodilators, he is on Coumadin for history of atrial fibrillation. His lab work showed negative per LEVEL OF 0.05, he tested negative for ova 19, influenza A and B, his white count on admission was 12.8, hemoglobin was 16.3. Today's INR is 1.4. No nausea vomiting or diarrhea, no abdominal pain. On 10/27/2021 patient seen in follow-up on medical surgical floor. He looks less dyspneic today, still states his dyspnea with any exertion. Vital signs have been stable, pulse oxes 100% on 3 L, afebrile. Blood pressure is been stable. Oxygenation has been stable, patient's pro calcitonin level was negative at 0.05. He remains on oral steroids in the form of prednisone. Continues on breathing treatments. No acute events overnight, his been ambulating in the room. Patient is stable, improved, and close to his baseline. No acute events overnight, vitals been stable. he could be considered for discharge home from pulmonary perspective. However he is awaiting evaluation by physical therapy for possibility of subacute rehab placement Objective - Vital Signs Vital signs: Vital Signs Temp 98 F 10/27/21 07:11 Pulse 74 10/27/21 08:37 Resp 24 10/27/21 08:00 BP 161/104 10/27/21 07:11 Pulse Ox 100 10/27/21 07:11 FiO2 Intake & Output 10/26/21 10/27/21 10/27/21 18:59 06:59 18:59 Other: Voiding Method Toilet Toilet Toilet Urinal # Voids 2 1 - Exam GENERAL EXAM: Alert, very pleasant, 71-year-old, on 3 L of oxygen, pulse ox of 100% comfortable in no apparent distress. HEAD: Normocephalic/atraumatic. EYES: Normal reaction of pupils, equal size. Conjunctiva pink, sclera white. NOSE: Clear with pink turbinates. THROAT: No erythema or exudates. NECK: No masses, no JVD, no thyroid enlargement, no adenopathy. CHEST: No chest wall deformity. Symmetrical expansion. LUNGS: Equal air entry with diffuse crackles at bilateral bases CVS: Regular rate and rhythm, normal S1 and S2, no gallops, no murmurs, no rubs ABDOMEN: Soft, nontender. No hepatosplenomegaly, normal bowel sounds, no guarding or rigidity. EXTREMITIES: No clubbing, no edema, no cyanosis, 2+ pulses and upper and lower extremities. MUSCULOSKELETAL: Muscle strength and tone normal. SPINE: No scoliosis or deformity SKIN: No rashes CENTRAL NERVOUS SYSTEM: Alert and oriented -3. No focal deficits, tone is normal in all 4 extremities. PSYCHIATRIC: Alert and oriented -3. Appropriate affect. Intact judgment and insight. - Labs CBC & Chem 7: 10/23/21 07:55 10/23/21 07:55 Labs: Microbiology - Last 24 Hours (Table) 10/23/21 09:00 Blood Culture - Preliminary Blood No Growth after 72 hours 10/23/21 08:45 Blood Culture - Preliminary Blood No Growth after 72 hours Assessment and Plan Plan: Assessment: #1. Acute on chronic dyspnea related to likely progression of IPF. Superinfection/pneumonia felt to be less likely, dull possibility of pulmonary embolism as the patient has been on long-term anticoagulation with Coumadin. Chest x-ray is showing bilateral infiltrates, worsening ILD/fibrosis. #2. Chronic hypoxic respiratory failure on 3 L at home on a regular basis #3. IPF maintained on Ofev #4. Coronary artery disease with previous bypass surgery #5. History of hiatal hernia #6. Gout #7. Hyperlipidemia #8. Hypertension Plan: Patient has been stable in terms of oxygenation Seems to be breathing a bit more comfortably Patient is close to his baseline He is awaiting evaluation by physical therapy for possibility of subacute rehab placement Patient can complete prednisone taper patient bases, [place] continue breathing treatments Continue oral prednisone He can continue on Ofev He can resume his albuterol We spoke to the patient regarding his long-term prognosis related to IPF Patient asked how long he is expected to survive, however we don't have an answer to that Patient will continue his home oxygen, and she may also need when necessary anxiolytics possibly Xanax, and we'll defer this to Dr. Weems Otherwise stable for discharge home today from pulmonary perspective Outpatient follow-up with Dr. Sinclair in the office I have personally seen and examined the patient, performed the documentation and the assessment and plan as written. Number of minutes spent on the visit: [10] Time with Patient: Less than 30
[2021-10-27 12:32] LABS: INR 1.7 (<1.2)
[2021-10-27] MEDS ORDERED: WARFARIN 3 MG TAB PO ONE (18:00)
[2021-10-27] MEDS: MELATONIN 3 MG TABLET PO SCH (21:38)
--- NOTE | 2021-10-27 21:39 | P.PN ---
Subjective From the records: 71-year-old male presenting to the emergency department with difficulty in breathing. Symptoms have progressed over the past 3-4 days. Patient does have chronic dyspnea associated with pulmonary fibrosis. Patient does have minimal cough, nonproductive sputum. No fever. No chest pain. Patient has become fatigued. Patient is exhausted after ambulating 20 steps to the restroom. Workup completed in ED reveals--- The chest x-ray showed extensive bilateral pulmonary fibrosis. Underlying pneumonia cannot be ruled out. He has been fully vaccinated for COVID 19 and his COVID 19 by PCR was negative. Influenza screen was also negative. Blood work shows a white second of 12.8, electrolytes are all stable and the patient is chronic metabolic alkalosis with a serum bicarb of 39. Normal LFTs. I'm resuming care of the patient today 10/25/21 This is a pleasant 71 male who presents with respiratory distress thought sec ondary to progressive IPF, with pulmonary team following him closely. Also patient placed on antibiotics and steroids for possible elements of COPD exacerbation or pneumonia, patient showing minimal improving and slow improvement. Currently he is on Zithromax and ceftriaxone. INR 1.8 and warfarin just started today. At [facility] for hypertension, check ISS, start Pepcid and Tums 10/26/2021 Patient still continued to improve slowly and gradually, he still have dyspnea on and off, we'll to walk to the bathroom but he got also exertional dyspnea. I explained for the patient his illness could be due to progressive fibrosis, however is been treated for possible reversible elements of pneumonia and COPD, spellcalcitonin is normal so suspicion of infection is low. Currently he is kept on Zithromax and ceftriaxone and prednisone 40 mg. Pulmonary team following the patient closely We going to ask for PT/OT evaluation, patient informed and he agrees to go to rehab if needed 2. Also he is on Coumadin and his INR went down to 1.4 despite he got 5 mg today, we going to give him 8 mg today and check INR tomorrow. 10/27/2021 Patient reason for return is getting a stabilized, he is dyspneic at baseline and lives now is close to his baseline, he is also on 3 L oxygen per minute. He remains on prednisone and antibiotics also he is getting warfarin 7 mg tonight, INR 1.7. Check INR tomorrow. PT/OT recommended home health care which is ordered Objective - Vital Signs Vital signs: Vital Signs Temp 98 F 10/27/21 07:11 Pulse 69 10/27/21 11:43 Resp 24 10/27/21 08:00 BP 161/104 10/27/21 07:11 Pulse Ox 100 10/27/21 07:11 FiO2 Intake & Output 10/26/21 10/27/21 10/27/21 18:59 06:59 18:59 Other: Voiding Method Toilet Toilet Toilet Urinal # Voids 2 1 - Exam GENERAL: The patient is alert and oriented x3, not in any acute distress. Well developed, well nourished. HEENT: Pupils are round and equally reacting to light. EOMI. No scleral icterus. No conjunctival pallor. Normocephalic, atraumatic. No pharyngeal erythema. No thyromegaly. CARDIOVASCULAR: S1 and S2 present. No murmurs, rubs, or gallops. -PULMONARY: Chest is clear to auscultation, no bilateral scattered wheezing and crepitation ABDOMEN: Soft, nontender, nondistended, normoactive bowel sounds. No palpable organomegaly. MUSCULOSKELETAL: No joint swelling or deformity. EXTREMITIES: No cyanosis, clubbing, or pedal edema. NEUROLOGICAL: Gross neurological examination did not reveal any focal deficits. SKIN: No rashes. no petechiae. - Labs CBC & Chem 7: 10/23/21 07:55 10/23/21 07:55 Labs: Abnormal Lab Results - Last 24 Hours (Table) 10/27/21 Range/Units 11:32 PT 17.0 H (9.0-12.0) sec INR 1.7 H (<1.2) Microbiology - Last 24 Hours (Table) 10/23/21 09:00 Blood Culture - Preliminary Blood No Growth after 96 hours 10/23/21 08:45 Blood Culture - Preliminary Blood No Growth after 96 hours Assessment and Plan Assessment: Idiopathic pulmonary fibrosis, progressive Chronic hypoxic respiratory failure Possible elements of COPD exacerbation Possible element of pneumonia versus acute tracheobronchitis Chronic atrial fibrillation, on Coumadin Hypertension Hyperlipidemia History of osteoarthritis Plan: This is a pleasant 71 years old male with IPS Pulmonary team on the case Continue with prednisone Continue with antibiotic Continue with warfarin At [facility] and monitor blood pressure Labs and medication were reviewed.. Continue same treatment. Continue with symptomatic treatment. Resume home medication. Monitor lytes and vitals. DVT and GI prophylaxis. Further recommendations as per clinical course of the patient DVT prophylaxis: Coumadine GI prophylaxis: Pepcid Prognosis is guarded
[2021-10-27] MEDS ORDERED: WARFARIN 1 MG TAB PO ONE (21:45)
[2021-10-28 06:44] LABS: INR 2.1 (<1.2); Prothrombin Time 21.1 sec (9.0-12.0)
[2021-10-28] MEDS: predniSONE 20 MG TAB PO SCH (07:06)
[2021-10-28] MEDS: ASPIRIN 81 MG PO SCH (07:06)
[2021-10-28] MEDS: FAMOTIDINE 20 MG TAB PO SCH (07:07)
[2021-10-28] MEDS: METOPROLOL TARTRATE 50 MG TAB PO SCH (07:07)
[2021-10-28] MEDS: hydrALAZINE HCL 50 MG TAB PO SCH (07:07)
[2021-10-28] MEDS: cloNIDine HCL 0.1 MG TAB PO SCH (07:07)
[2021-10-28] MEDS: IPRATROPIUM-ALBUTEROL 3 ML NEB INHALATION SCH ×2 (07:42→11:38)
[2021-10-28 07:47] VITALS: BP 173/95; TEMP 97.9
--- NOTE | 2021-10-28 11:34 | P.PN ---
Subjective Progress Note Date: 10/28/21 Principal diagnosis: Shortness of breath 71-year-old male patient who presented to hospital because of worsening shortness of breath. The patient is to have IPF and during a recent visit that our office he was told that his IPF was progressively getting worse and the patient was started treatment with Ofev. Noted the patient has been expressing worsening shortness of breath especially with activity. While at rest, the patient has no major complaints. He reports significant worsening in his performance status due to his chronic lung disease. He came into the emergency and the patient was getting more short of breath over the past few days. No chest pain. No pleurisy. No hemoptysis. No cough. No sputum production. No worsening in lower extremity edema. He is on oxygen at 3 L which is currently is at its baseline. The chest x-ray showed extensive bilateral pulmonary fibrosis. Underlying pneumonia cannot be ruled out. The patient is demented on long-term medical condition with warfarin regarding paroxysmal atrial fibrillation. Cardiac rhythm is sinus. He has no swelling in lower extremities. He has been fully vaccinated for COVID 19 and his COVID 19 by PCR was negative. Influenza screen was also negative. The rest of the blood work shows a white second of 12.8, electrolytes are all stable and the patient is chronic metabolic alkalosis with a serum bicarb of 39. Normal LFTs. On 10/24/2021, the patient is unchanged clinically the patient remains the same. He is a case of severe pulmonary fibrosis. I think his disease is consistent with progression of pulmonary fibrosis and the patient does not have any superinfection. Nevertheless, we'll giving him the benefit of the doubt by giving him some antibiotics and steroids. He is essentially the same as yesterday. No interval changes condition. Oxygen requirements are unchanged. His blood work shows an INR of 3.1. 10/25/2021, the patient is essentially the same without any interval changes condition. I think that the patient's condition is consistent with slow progression of his underlying pulmonary fibrosis. No indication for pneumonia or any other pulmonary complications complicating his chronic shortness of breath. He is currently on 3 L of oxygen by nasal cannula. He is on a combination of Rocephin as antibiotics and IV Solu-Medrol. INR today is 1.8 On 10/26/2021 patient seen in follow-up on medical surgical floor. Patient's states he is short of breath with any exertion and even with conversation, he remains on 3 L of oxygen and this is what he usually wears at home on a regular basis for recently established diagnosis of IPF. On 3-1/2 L of oxygen his pulse ox is 95%. AFebrile, occasional dry cough, no phlegm production, no hemoptysis, no fever or chills, signs have been stable. His chest x-ray showed stable diffuse scattered infiltrates stable in appearance. Patient remains on prednisone, 40 mg daily. he remains on Ofev. Is on nebulized bronchodilators, he is on Coumadin for history of atrial fibrillation. His lab work showed negative per LEVEL OF 0.05, he tested negative for ova 19, influenza A and B, his white count on admission was 12.8, hemoglobin was 16.3. Today's INR is 1.4. No nausea vomiting or diarrhea, no abdominal pain. On 10/27/2021 patient seen in follow-up on medical surgical floor. He looks less dyspneic today, still states his dyspnea with any exertion. Vital signs have been stable, pulse oxes 100% on 3 L, afebrile. Blood pressure is been stable. Oxygenation has been stable, patient's pro calcitonin level was negative at 0.05. He remains on oral steroids in the form of prednisone. Continues on breathing treatments. No acute events overnight, his been ambulating in the room. Patient is stable, improved, and close to his baseline. No acute events overnight, vitals been stable. he could be considered for discharge home from pulmonary perspective. However he is awaiting evaluation by physical therapy for possibility of subacute rehab placement On 10/28/2021 patient seen in follow-up on medical surgical floor. He is resting comfortably in bed, no worsening dyspnea, vital signs have been stable, he is on his home dose O2 at 3 L, pulse ox is 98%, no fever or chills. Does have exertional dyspnea, but overall seems to have improved since admission, tolerates ambulation. He continues on breathing treatments, continues on oral prednisone. Patient was evaluated by physical therapy, and the patient and the spouse opted for [facility] home care after discharge with referral for an RNcatalino, physical therapy and occupational therapy Objective - Vital Signs Vital signs: Vital Signs Temp 97.9 F 10/28/21 06:59 Pulse 72 10/28/21 07:55 Resp 18 10/28/21 07:55 BP 173/95 10/28/21 06:59 Pulse Ox 98 10/28/21 07:42 FiO2 Intake & Output 10/27/21 10/28/21 10/28/21 18:59 06:59 18:59 Intake Total 1010 180 Balance 1010 180 Intake: Oral 1010 180 Other: Voiding Method Toilet # Voids 2 1 - Exam GENERAL EXAM: Alert, very pleasant, 71-year-old, on 3 L of oxygen, pulse ox of 100% comfortable in no apparent distress. HEAD: Normocephalic/atraumatic. EYES: Normal reaction of pupils, equal size. Conjunctiva pink, sclera white. NOSE: Clear with pink turbinates. THROAT: No erythema or exudates. NECK: No masses, no JVD, no thyroid enlargement, no adenopathy. CHEST: No chest wall deformity. Symmetrical expansion. LUNGS: Equal air entry with diffuse crackles at bilateral bases CVS: Regular rate and rhythm, normal S1 and S2, no gallops, no murmurs, no rubs ABDOMEN: Soft, nontender. No hepatosplenomegaly, normal bowel sounds, no guarding or rigidity. EXTREMITIES: No clubbing, no edema, no cyanosis, 2+ pulses and upper and lower extremities. MUSCULOSKELETAL: Muscle strength and tone normal. SPINE: No scoliosis or deformity SKIN: No rashes CENTRAL NERVOUS SYSTEM: Alert and oriented -3. No focal deficits, tone is normal in all 4 extremities. PSYCHIATRIC: Alert and oriented -3. Appropriate affect. Intact judgment and insight. - Labs CBC & Chem 7: 10/23/21 07:55 10/23/21 07:55 Labs: Abnormal Lab Results - Last 24 Hours (Table) 10/27/21 10/28/21 Range/Units 11:32 05:56 PT 17.0 H 21.1 H (9.0-12.0) sec INR 1.7 H 2.1 H (<1.2) Microbiology - Last 24 Hours (Table) 10/23/21 09:00 Blood Culture - Preliminary Blood No Growth after 96 hours 10/23/21 08:45 Blood Culture - Preliminary Blood No Growth after 96 hours Assessment and Plan Plan: Assessment: #1. Acute on chronic dyspnea related to likely progression of IPF. Super infection/pneumonia felt to be less likely, dull possibility of pulmonary embolism as the patient has been on long-term anticoagulation with Coumadin. Chest x-ray is showing bilateral infiltrates, worsening ILD/fibrosis. #2. Chronic hypoxic respiratory failure on 3 L at home on a regular basis #3. IPF maintained on Ofev #4. Coronary artery disease with previous bypass surgery #5. History of hiatal hernia #6. Gout #7. Hyperlipidemia #8. Hypertension Plan: Clinical patient has remained stable, Stable oxygenation, he is on home dose O2 at 3 L Tolerates ambulation No fever or chills Patient can be considered for discharge home today The patient and his spouse opted for home care with visiting nurses, nurses aide, physical therapy and occupational therapy Outpatient follow-up with Dr. Champagne in the office, he will complete prednisone taper, and will continue on his Ofev I have personally seen and examined the patient, performed the documentation and the assessment and plan as written. Number of minutes spent on the visit: [10] Time with Patient: Less than 30
[2021-10-28 11:40] VITALS: PULSE 84; RESP 20
[2021-10-28] MEDS ORDERED: WARFARIN 5 MG TAB PO ONE (18:00)
--- NOTE | 2021-10-28 18:26 | P.DS ---
Providers Date of admission: 10/23/21 09:02 Attending physician: Jam Diaz Consults: 10/23/21 08:59 Consult Physician Routine Consulting Provider: Xochitl Farias Consult Reason/Comments: Pulmonary fibrosis, atypical pneumonia Do you want consulting provider notified?: Yes Primary care physician: Dagoberto Weems Hospital Course: Diagnoses Idiopathic pulmonary fibrosis, progressive Chronic hypoxic respiratory failure Possible elements of COPD exacerbation Possible element of pneumonia versus acute tracheobronchitis Chronic atrial fibrillation, on Coumadin Hypertension Hyperlipidemia History of osteoarthritis Hospital course: 71-year-old male presenting to the emergency department with difficulty in breathing. Symptoms have progressed over the past 3-4 days. Patient does have chronic dyspnea associated with pulmonary fibrosis. Patient has been evaluated by pulmonary team and he was treated with antibiotic which was discontinued later on with no evidence of infection. Also he is treated with Solu-Medrol and switched prednisone later for elements of acute COPD exacerbation. The patient's breathing improved back to baseline. He is resting comfortably today on 3 L/m of oxygen via nasal cannula which is his home dose. Patient confirmed to me he has oxygen at home. Patient is cleared for discharge by pulmonary team Also his INR was supratherapeutic on admission at 3.1 he was taken 7.5 mg of warfarin at home with some days 5 mg only. His INR today is 2.1. Patient discharged on Andrews dose of Coumadin 6.5 mg with recommendation for him to go and check his INR with Dr. Barbosa office his gravel weigher on this coming Monday and he verbalized understanding and acceptance. Problems and management plan were discussed with the patient and he verbalized understanding and acceptance Patient was found stable and can be discharged home in guarded prognosis however he needs follow-up as an outpatient. Patient was instructed to follow up with PCP Dr. Weems within one week and patient agrees Patient was instructed to follow up with training and development coordinator Dr. Champagne in 1-2 weeks and he agrees to call and make his own appointment Physical exam Gen: patient is a AAOx3, no distress CVS: S1-S2, RRR, no murmur -Lungs: B/L CTA, no wheezing. Bilateral crepitation Abdomen: soft, no distention, no tenderness, positive bowel sounds Extremity: no leg edema or induration Time spent more than 35 minutes Plan - Discharge Summary Discharge Rx Participant: No New Discharge Prescriptions: New hydrALAZINE HCL [Apresoline] 50 mg PO TID #90 tab Famotidine [Pepcid] 40 mg PO DAILY #60 tab cloNIDine HCL [Catapres] 0.1 mg PO TID #90 tab Warfarin [Coumadin] 1.5 mg PO DAILY 30 Days #15 tab Warfarin [Coumadin] 5 mg PO DAILY #30 tab predniSONE 10 mg PO DIRECTED #40 tab Continue Albuterol Sulfate [Proventil Hfa] 2 puff INHALATION RT-Q6H PRN PRN Reason: Shortness Of Breath Indomethacin [Indocin] 50 mg PO BID PRN PRN Reason: Pain & Inflammation Metoprolol Tartrate [Lopressor] 100 mg PO DAILY Escitalopram [Lexapro] 5 mg PO DAILY predniSONE See Taper PO DAILY Diclofenac Sodium Gel [Voltaren Gel] 2 - 4 gram TOPICAL QID PRN PRN Reason: Pain ALPRAZolam [Xanax] 0.25 mg PO BID PRN PRN Reason: Anxiety Mometasone Inhalr 220 Mcg/Puff [Asmanex] 2 puff INHALATION RT-BID Rosuvastatin [Crestor] 10 mg PO HS Nintedanib Esylate [Ofev] 150 mg PO BID Discontinued Warfarin [Coumadin] 5 mg PO SUTUTHSA@1800 Warfarin Sodium [Coumadin] 7.5 mg PO MOWEFR@1800 cloNIDine HCL [Catapres] 0.2 mg PO DAILY@0800 cloNIDine HCL [Catapres] 0.1 mg PO BID@1800,2100 Discharge Medication List Albuterol Sulfate [Proventil Hfa] 2 puff INHALATION RT-Q6H PRN 02/25/16 [History] Indomethacin [Indocin] 50 mg PO BID PRN 12/04/18 [History] Metoprolol Tartrate [Lopressor] 100 mg PO DAILY 12/04/18 [History] ALPRAZolam [Xanax] 0.25 mg PO BID PRN 10/23/21 [History] Diclofenac Sodium Gel [Voltaren Gel] 2 - 4 gram TOPICAL QID PRN 10/23/21 [History] Escitalopram [Lexapro] 5 mg PO DAILY 10/23/21 [History] Mometasone Inhalr 220 Mcg/Puff [Asmanex] 2 puff INHALATION RT-BID 10/23/21 [History] Nintedanib Esylate [Ofev] 150 mg PO BID 10/23/21 [History] Rosuvastatin [Crestor] 10 mg PO HS 10/23/21 [History] predniSONE See Taper PO DAILY 10/23/21 [History] Famotidine [Pepcid] 40 mg PO DAILY #60 tab 10/28/21 [Rx] Warfarin [Coumadin] 1.5 mg PO DAILY 30 Days #15 tab 10/28/21 [Rx] Warfarin [Coumadin] 5 mg PO DAILY #30 tab 10/28/21 [Rx] cloNIDine HCL [Catapres] 0.1 mg PO TID #90 tab 10/28/21 [Rx] hydrALAZINE HCL [Apresoline] 50 mg PO TID #90 tab 10/28/21 [Rx] predniSONE 10 mg PO DIRECTED #40 tab 10/28/21 [Rx] Follow up Appointment(s)/Referral(s): Arsenio Sinclair MD [STAFF PHYSICIAN] - 11/17/21 2:15 pm Tia Barbosa MD [STAFF PHYSICIAN] - 11/03/21 10:00 am Dagoberto Weems DO [Primary Care Provider] - 11/05/21 11:20 am [facility], [NON-STAFF] - ([facility] will contact you to arrange a visit) Patient Instructions/Handouts: Pneumonia (DC) Activity/Diet/Wound Care/Special Instructions: Low carbohydrate diets Activity is restricted till you see your doctor we recommend to check your INR on this coming Wednesday 11/01 with your gravel weigher office Dr. Barbosa. Adjust your Coumadin dose prior INR with a recommendation from Dr. Barbosa. your goal INR is 2-3 Discharge Disposition: HOME WITH HOME HEALTH SERVICES
== END 2021-10-28 14:55 | disposition home health service (06) | DRG 196 ==
LOC: EC 07:32 → 4SSUR 09:02
PROVIDERS: ADMIT Hospitalist; ATTEND Hospitalist
DX: J84.112 Idiopathic pulmonary fibrosis (principal); J96.21 Acute and chronic respiratory failure with hypoxia; J18.9 Pneumonia, unspecified organism; E87.3 Alkalosis; J44.1 Chronic obstructive pulmonary disease with (acute) exacerbation; J44.0 Chronic obstructive pulmonary disease with (acute) lower respiratory infection; F03.90 Unspecified dementia, unspecified severity, without behavioral disturbance, psychotic disturbance, mood disturbance, and anxiety; I48.0 Paroxysmal atrial fibrillation; Z20.822 Contact with and (suspected) exposure to COVID-19; J20.9 Acute bronchitis, unspecified; I25.10 Atherosclerotic heart disease of native coronary artery without angina pectoris; I10 Essential (primary) hypertension; E78.5 Hyperlipidemia, unspecified; T45.515A Adverse effect of anticoagulants, initial encounter; M10.9 Gout, unspecified; M19.90 Unspecified osteoarthritis, unspecified site; K44.9 Diaphragmatic hernia without obstruction or gangrene; M54.9 Dorsalgia, unspecified; H93.13 Tinnitus, bilateral; K21.9 Gastro-esophageal reflux disease without esophagitis; N28.9 Disorder of kidney and ureter, unspecified; Z79.01 Long term (current) use of anticoagulants; Z79.899 Other long term (current) drug therapy; Z98.42 Cataract extraction status, left eye; Z98.41 Cataract extraction status, right eye; Z95.5 Presence of coronary angioplasty implant and graft; Z95.1 Presence of aortocoronary bypass graft; Z87.891 Personal history of nicotine dependence; Z87.39 Personal history of other diseases of the musculoskeletal system and connective tissue; Z86.010 Personal history of colon polyps; Z87.440 Personal history of urinary (tract) infections; Z98.890 Other specified postprocedural states; Z71.3 Dietary counseling and surveillance; Z88.8 Allergy status to other drugs, medicaments and biological substances; Z82.49 Family history of ischemic heart disease and other diseases of the circulatory system; Z84.89 Family history of other specified conditions
CPT/HCPCS: 36415; 71046; 80053; 83605; 83735; 83880; 84145; 85025; 85610; 85730; 87040; 87502; 87635; 93005; 94640; 94760; 96365; 96367; 96375; 96376; 99291

== ENCOUNTER 2021-12-30 10:00 | Inpatient (IN) | payer MEDICARE ==
[2021-12-30] MEDS ORDERED: IPRATROPIUM-ALBUTEROL 3 ML NEB INHALATION STA (10:28)
[2021-12-30] MEDS ORDERED: methylPREDNISolone SOD SUCCI 125 MG/2 ML VIAL IV STA (10:28)
--- NOTE | 2021-12-30 10:32 | ED ---
General Adult HPI - General Chief complaint: Shortness of Breath Stated complaint: sharon Time Seen by Provider: 12/30/21 10:10 Source: patient, EMS, RN notes reviewed Mode of arrival: EMS Limitations: no limitations - History of Present Illness Initial comments: Patient is a pleasant 71-year-old male presenting to the emergency department with dyspnea. Symptoms have progressed over the past few weeks. Patient has severe pulmonary fibrosis and is on experiment to medication for this. Patient is also been having frequent loose stools multiple times daily over the past few weeks. Patient questions if this could be a side effect of his experimental medication. No fever. No leg pain or leg swelling. - Related Data Home Medications Medication Instructions Recorded Confirmed Albuterol Sulfate [Proventil Hfa] 2 puff INHALATION RT-Q6H PRN 02/25/16 10/23/21 Indomethacin [Indocin] 50 mg PO BID PRN 12/04/18 10/23/21 Metoprolol Tartrate [Lopressor] 100 mg PO DAILY 12/04/18 10/23/21 ALPRAZolam [Xanax] 0.25 mg PO BID PRN 10/23/21 10/23/21 Diclofenac Sodium Gel [Voltaren 2 - 4 gram TOPICAL QID PRN 10/23/21 10/23/21 Gel] Escitalopram [Lexapro] 5 mg PO DAILY 10/23/21 10/23/21 Mometasone Inhalr 220 Mcg/Puff 2 puff INHALATION RT-BID 10/23/21 10/23/21 [Asmanex] Nintedanib Esylate [Ofev] 150 mg PO BID 10/23/21 10/23/21 Rosuvastatin [Crestor] 10 mg PO HS 10/23/21 10/23/21 predniSONE See Taper PO DAILY 10/23/21 10/23/21 Previous Rx's Medication Instructions Recorded Famotidine [Pepcid] 40 mg PO DAILY #60 tab 10/28/21 Warfarin [Coumadin] 1.5 mg PO DAILY 30 Days #15 tab 10/28/21 Warfarin [Coumadin] 5 mg PO DAILY #30 tab 10/28/21 cloNIDine HCL [Catapres] 0.1 mg PO TID #90 tab 10/28/21 hydrALAZINE HCL [Apresoline] 50 mg PO TID #90 tab 10/28/21 predniSONE 10 mg PO DIRECTED #40 tab 10/28/21 Allergies Allergy/AdvReac Type Severity Reaction Status Date / Time benazepril Allergy THROAT Verified 12/30/21 10:14 Swelling duloxetine [From Cymbalta] Allergy THROAT Verified 12/30/21 10:14 Swelling amlodipine AdvReac HEADACHE Verified 12/30/21 10:14 atorvastatin [From Lipitor] AdvReac EDEMA Verified 12/30/21 10:14 pravastatin AdvReac MUSCLE PAIN Verified 12/30/21 10:14 simvastatin AdvReac MUSCLE PAIN Verified 12/30/21 10:14 Review of Systems ROS Statement: Those systems with pertinent positive or pertinent negative responses have been documented in the HPI. ROS Other: All systems not noted in ROS Statement are negative. Constitutional: Denies: fever Eyes: Denies: eye pain ENT: Denies: ear pain Respiratory: Reports: as per HPI, dyspnea. Denies: cough Cardiovascular: Denies: chest pain Endocrine: Reports: fatigue Gastrointestinal: Reports: as per HPI, diarrhea. Denies: abdominal pain Genitourinary: Denies: urgency Musculoskeletal: Denies: back pain Skin: Denies: rash Neurological: Denies: weakness Past Medical History Past Medical History: Atrial Fibrillation, Chest Pain / Angina, GERD/Reflux, Hyperlipidemia, Hypertension, Osteoarthritis (OA) Additional Past Medical History / Comment(s): CURRENT: HAS BEEN HAVING OCCASIONAL CHEST PAIN/PRESSUE WITH SOB, hx of bilateral tinnitis, UTI, occasional back pain, hiatal hernia, past dysphagia related to allergic reaction to medication, gout . pulmonary fibrosis History of Any Multi-Drug Resistant Organisms: None Reported Past Surgical History: Cardiac Ablation, Coronary Bypass/CABG, Heart Catheterization With Stent, Orthopedic Surgery Additional Past Surgical History / Comment(s): LEFT KNEE surgery for injury in [place], LEFT ROTATOR CUFF, CARDIOVERSION X 2, colonoscopy with benign polypectomy, bilateral cataract removals, quadruple bypass 03/13 Past Anesthesia/Blood Transfusion Reactions: No Reported Reaction Date of Last Stent Placement:: 1999 Past Psychological History: No Psychological Hx Reported Smoking Status: Former smoker Past Alcohol Use History: Occasional Past Drug Use History: None Reported - Past Family History Mother Family Medical History: No Reported History Additional Family Medical History / Comment(s): Mother of a sunstroke in her late 30's Father Family Medical History: Coronary Artery Disease (CAD) Additional Family Medical History / Comment(s): Father of heart disease (pt unsure if it was a [place]) in his early 40's General Exam Limitations: no limitations General appearance: alert, in no apparent distress Head exam: Present: normocephalic Eye exam: Present: normal appearance ENT exam: Present: normal oropharynx Respiratory exam: Present: respiratory distress (Mild), decreased breath sounds Cardiovascular Exam: Present: tachycardia GI/Abdominal exam: Present: soft. Absent: tenderness Extremities exam: Present: normal inspection. Absent: pedal edema, calf tenderness Neurological exam: Present: alert Psychiatric exam: Present: normal affect, normal mood Skin exam: Present: normal color Course Vital Signs 12/30/21 12/30/21 12/30/21 10:04 10:15 11:09 Temperature 97.6 F Pulse Rate 105 H 98 Respiratory 28 H 26 H 22 Rate Blood Pressure 119/82 O2 Sat by Pulse 98 Oximetry 12/30/21 11:17 Temperature Pulse Rate 96 Respiratory 22 Rate Blood Pressure O2 Sat by Pulse Oximetry EKG Findings - EKG Comments: EKG Findings:: Sinus tachycardia 107. [place] 174. QRS 109. QT 343. QTC 406. Normal axis. Right atrial enlargement. LVH criteria. Nonspecific ST-T Medical Decision Making - Medical Decision Making Patient reevaluated and only mildly improved. Patient states he does see Dr. Sinclair. Case was discussed with Dr. Weems who is familiar with this patient and will admit. Consults will be placed for pulmonary and cardiology. - Lab Data Result diagrams: 12/30/21 10:40 12/30/21 10:40 Lab Results 12/30/21 12/30/21 12/30/21 Range/Units 10:22 10:40 10:40 WBC 9.8 (3.8-10.6) k/uL RBC 4.69 (4.30-5.90) m/uL Hgb 15.5 (13.0-17.5) gm/dL Hct 47.5 (39.0-53.0) % MCV 101.1 H (80.0-100.0) fL MCH 33.1 (25.0-35.0) pg MCHC 32.7 (31.0-37.0) g/dL RDW 14.3 (11.5-15.5) % Plt Count 167 (150-450) k/uL MPV 6.8 Neutrophils % 86 % Lymphocytes % 6 % Monocytes % 4 % Eosinophils % 2 % Basophils % 1 % Neutrophils # 8.5 H (1.3-7.7) k/uL Lymphocytes # 0.5 L (1.0-4.8) k/uL Monocytes # 0.4 (0-1.0) k/uL Eosinophils # 0.2 (0-0.7) k/uL Basophils # 0.1 (0-0.2) k/uL Hypochromasia Slight Macrocytosis Slight PT 52.0 H (9.0-12.0) sec INR 5.2 H* (<1.2) APTT 41.8 H (22.0-30.0) sec Sodium (137-145) mmol/L Potassium (3.5-5.1) mmol/L Chloride (98-107) mmol/L Carbon Dioxide (22-30) mmol/L Anion Gap mmol/L BUN (9-20) mg/dL Creatinine (0.66-1.25) mg/dL Est GFR (CKD-EPI)AfAm (>60 ml/min/1.73 sqM) Est GFR (CKD-EPI)NonAf (>60 ml/min/1.73 sqM) Glucose (74-99) mg/dL Plasma Lactic Acid Vish (0.7-2.0) mmol/L Calcium (8.4-10.2) mg/dL Total Bilirubin (0.2-1.3) mg/dL AST (17-59) U/L ALT (4-49) U/L Alkaline Phosphatase (38-126) U/L Troponin I (0.000-0.034) ng/mL NT-Pro-B Natriuret Pep 4730 pg/mL Total Protein (6.3-8.2) g/dL Albumin (3.5-5.0) g/dL Coronavirus (PCR) (Not Detectd) Influenza Type A RNA (Not Detectd) Influenza Type B (PCR) (Not Detectd) 12/30/21 12/30/21 12/30/21 Range/Units 10:40 10:40 10:40 WBC (3.8-10.6) k/uL RBC (4.30-5.90) m/uL Hgb (13.0-17.5) gm/dL Hct (39.0-53.0) % MCV (80.0-100.0) fL MCH (25.0-35.0) pg MCHC (31.0-37.0) g/dL RDW (11.5-15.5) % Plt Count (150-450) k/uL MPV Neutrophils % % Lymphocytes % % Monocytes % % Eosinophils % % Basophils % % Neutrophils # (1.3-7.7) k/uL Lymphocytes # (1.0-4.8) k/uL Monocytes # (0-1.0) k/uL Eosinophils # (0-0.7) k/uL Basophils # (0-0.2) k/uL Hypochromasia Macrocytosis PT (9.0-12.0) sec INR (<1.2) APTT (22.0-30.0) sec Sodium 136 L (137-145) mmol/L Potassium 3.9 (3.5-5.1) mmol/L Chloride 95 L (98-107) mmol/L Carbon Dioxide 39 H (22-30) mmol/L Anion Gap 2 mmol/L BUN 29 H (9-20) mg/dL Creatinine 1.17 (0.66-1.25) mg/dL Est GFR (CKD-EPI)AfAm 72 (>60 ml/min/1.73 sqM) Est GFR (CKD-EPI)NonAf 62 (>60 ml/min/1.73 sqM) Glucose 141 H (74-99) mg/dL Plasma Lactic Acid Vish 1.3 (0.7-2.0) mmol/L Calcium 8.6 (8.4-10.2) mg/dL Total Bilirubin 0.4 (0.2-1.3) mg/dL AST 33 (17-59) U/L ALT 18 (4-49) U/L Alkaline Phosphatase 63 (38-126) U/L Troponin I 0.072 H* (0.000-0.034) ng/mL NT-Pro-B Natriuret Pep pg/mL Total Protein 5.7 L (6.3-8.2) g/dL Albumin 3.1 L (3.5-5.0) g/dL Coronavirus (PCR) (Not Detectd) Influenza Type A RNA (Not Detectd) Influenza Type B (PCR) (Not Detectd) 12/30/21 12/30/21 Range/Units 11:09 11:09 WBC (3.8-10.6) k/uL RBC (4.30-5.90) m/uL Hgb (13.0-17.5) gm/dL Hct (39.0-53.0) % MCV (80.0-100.0) fL MCH (25.0-35.0) pg MCHC (31.0-37.0) g/dL RDW (11.5-15.5) % Plt Count (150-450) k/uL MPV Neutrophils % % Lymphocytes % % Monocytes % % Eosinophils % % Basophils % % Neutrophils # (1.3-7.7) k/uL Lymphocytes # (1.0-4.8) k/uL Monocytes # (0-1.0) k/uL Eosinophils # (0-0.7) k/uL Basophils # (0-0.2) k/uL Hypochromasia Macrocytosis PT (9.0-12.0) sec INR (<1.2) APTT (22.0-30.0) sec Sodium (137-145) mmol/L Potassium (3.5-5.1) mmol/L Chloride (98-107) mmol/L Carbon Dioxide (22-30) mmol/L Anion Gap mmol/L BUN (9-20) mg/dL Creatinine (0.66-1.25) mg/dL Est GFR (CKD-EPI)AfAm (>60 ml/min/1.73 sqM) Est GFR (CKD-EPI)NonAf (>60 ml/min/1.73 sqM) Glucose (74-99) mg/dL Plasma Lactic Acid Vish (0.7-2.0) mmol/L Calcium (8.4-10.2) mg/dL Total Bilirubin (0.2-1.3) mg/dL AST (17-59) U/L ALT (4-49) U/L Alkaline Phosphatase (38-126) U/L Troponin I (0.000-0.034) ng/mL NT-Pro-B Natriuret Pep pg/mL Total Protein (6.3-8.2) g/dL Albumin (3.5-5.0) g/dL Coronavirus (PCR) Not Detected (Not Detectd) Influenza Type A RNA Not Detected (Not Detectd) Influenza Type B (PCR) Not Detected (Not Detectd) - Radiology Data Radiology results: image reviewed (Chest x-ray shows diffuse interstitial changes, concerning for heart failure) Disposition Clinical Impression: IPF (idiopathic pulmonary fibrosis), Congestive heart failure Disposition: ADMITTED IP TO THIS [facility] Condition: Serious Is patient prescribed a controlled substance at d/c from ED?: No Referrals: Dagoberto Weems DO [Primary Care Provider] - 1-2 days Time of Disposition: 12:28
[2021-12-30 10:56] LABS: Basophils # (A) 0.1 k/uL (0-0.2); Basophils % (A) 1 %; Eosinophils # (A) 0.2 k/uL (0-0.7); Eosinophils % (A) 2 %; HCT 47.5 % (39.0-53.0); HGB 15.5 gm/dL (13.0-17.5); Hypochromasia Slight; Lymphocytes # (A) 0.5 k/uL (1.0-4.8); Lymphocytes % (A) 6 %; MCH 33.1 pg (25.0-35.0); MCHC 32.7 g/dL (31.0-37.0); MCV 101.1 fL (80.0-100.0); Macrocytosis Slight; Mean Platelet Volume 6.8; Monocytes # (A) 0.4 k/uL (0-1.0); Monocytes % (A) 4 %; Neutrophils # (A) 8.5 k/uL (1.3-7.7); Neutrophils % (A) 86 %; Platelet Count 167 k/uL (150-450); RBC 4.69 m/uL (4.30-5.90); RDW 14.3 % (11.5-15.5); WBC 9.8 k/uL (3.8-10.6)
[2021-12-30 11:07] LABS: Partial Thromboplastin Time 41.8 sec (22.0-30.0)
--- NOTE | 2021-12-30 11:15 | XR ---
EXAMINATION TYPE: XR chest 2V DATE OF EXAM: 12/30/2021 11:05 AM COMPARISON: Chest radiographs from 10/24/2021 TECHNIQUE: XR chest 2V Frontal and lateral views of the chest. CLINICAL INDICATION:Male, 71 years old with history of difficulty breathing; FINDINGS: Lungs/Pleura: Diffuse scattered airspace opacities throughout the lungs which is increased from prior . Pulmonary vascularity: Pulmonary vascular congestion. Heart/mediastinum: Cardiomediastinal silhouette is enlarged and stable. Left atrial appendage occlu jud device is present. Musculoskeletal: No acute osseous pathology. IMPRESSION: Diffuse airspace opacities throughout the lungs which have increased from 10/24/2021 correlate with se rum BNP for congestive heart failure changes given the cardiomegaly and pulmonary vascular congestion and consider infectious etiologies.
[2021-12-30 11:16] LABS: Albumin 3.1 g/dL (3.5-5.0); Calcium 8.6 mg/dL (8.4-10.2); Potassium 3.9 mmol/L (3.5-5.1); Total Bilirubin 0.4 mg/dL (0.2-1.3); Total Protein 5.7 g/dL (6.3-8.2)
[2021-12-30 11:24] LABS: INR 5.2 (<1.2)
[2021-12-30] MEDS ORDERED: ASPIRIN 325 MG TAB PO STA (12:28)
[2021-12-30] MEDS ORDERED: NALOXONE 0.4 MG/ML 1 ML VIAL IVP PRN (12:31)
[2021-12-30] MEDS ORDERED: IPRATROPIUM-ALBUTEROL 3 ML NEB INHALATION PRN (12:31)
[2021-12-30] MEDS: FUROSEMIDE 10 MG/ML 4 ML VIAL IV SCH ×2 (14:06→21:01)
[2021-12-30] MEDS: NITROGLYCERIN OINT 1 INCH/GM PACKET TOPICAL SCH ×3 (14:07→21:01)
[2021-12-30] MEDS: IPRATROPIUM-ALBUTEROL 3 ML NEB INHALATION SCH ×2 (14:46→20:28)
[2021-12-30] MEDS: HYDROmorphone 1 MG/ML 1 ML SYRINGE IVP PRN (18:19)
[2021-12-30] MEDS: methylPREDNISolone SOD SUCCI 125 MG/2 ML VIAL IV SCH ×2 (18:27→23:37)
[2021-12-30] MEDS: ALPRAZolam 0.5 MG TAB PO PRN (18:32)
[2021-12-31] MEDS: FUROSEMIDE 10 MG/ML 4 ML VIAL IV SCH ×3 (03:05→21:15)
[2021-12-31] MEDS: methylPREDNISolone SOD SUCCI 125 MG/2 ML VIAL IV SCH ×4 (06:33→23:20)
[2021-12-31] MEDS: IPRATROPIUM-ALBUTEROL 3 ML NEB INHALATION SCH ×4 (07:27→20:35)
[2021-12-31] MEDS ORDERED: METOPROLOL TARTRATE 50 MG TAB PO SCH ×2 (09:00)
[2021-12-31] MEDS ORDERED: ASPIRIN 325 MG TAB PO SCH (09:00)
[2021-12-31] MEDS ORDERED: NON FORMULARY DRUG (Metoprolol Tartrate [Lopressor] 100 MG Tablet) PO SCH (09:00)
[2021-12-31] MEDS: cloNIDine HCL 0.1 MG TAB PO SCH ×4 (09:28→23:14)
[2021-12-31] MEDS: ASPIRIN 81 MG PO SCH (09:28)
[2021-12-31] MEDS: NITROGLYCERIN OINT 1 INCH/GM PACKET TOPICAL SCH (09:29)
[2021-12-31] MEDS: ALPRAZolam 0.5 MG TAB PO PRN (09:42)
--- NOTE | 2021-12-31 11:07 | CA ---
Transthoracic Echo Report Name: Anthony Spears Age: 71 Gender: M : 1950 Exam Date: 12/31/2021 09:10 Exam Location: [facility] Ht (in): 76 Wt (lb): 173 Ordering Physician: Nava Bowman Attending/Referring Phys: Planting Machine Operator Irina Corrales RDCS Procedure CPT: Indications: shortness of breath, elevated troponin Cardiac Hx: Technical Quality: Good Contrast 1: Total Dose (mL): Contrast 2: Total Dose (mL): MEASUREMENTS (Male / Female) Normal Values 2D ECHO LV Diastolic Diameter PLAX 5.4 cm 4.2 - 5.9 / 3.9 - 5.3 cm LV Systolic Diameter PLAX 3.7 cm IVS Diastolic Thickness 1.5 cm 0.6 - 1.0 / 0.6 - 0.9 cm LVPW Diastolic Thickness 1.3 cm 0.6 - 1.0 / 0.6 - 0.9 cm LV Relative Wall Thickness 0.5 RV Internal Dim ED PLAX 3.9 cm LVOT Diameter 2.5 cm LA Systolic Diameter LX 4.5 cm 3.0 - 4.0 / 2.7 - 3.8 cm LA Volume 87.7 cm??? 18 - 58 / 22 - 52 cm??? M-MODE Aortic Root Diameter MM 3.7 cm MV E Point Septal Separation 1.3 cm AV Cusp Separation MM 1.5 cm DOPPLER AV Peak Velocity 193.6 cm/s AV Peak Gradient 15.0 mmHg AV Mean Velocity 135.3 cm/s AV Mean Gradient 8.5 mmHg AV Velocity Time Integral 30.0 cm LVOT Peak Velocity 105.0 cm/s LVOT Peak Gradient 4.4 mmHg AV Area Cont Eq pk 2.6 cm??? MV Area PHT 14.0 cm??? Mitral E Point Velocity 81.5 cm/s Mitral A Point Velocity 61.0 cm/s Mitral E to A Ratio 1.3 MV Deceleration Time 54.4 ms MV E' Velocity 11.3 cm/s Mitral E to MV E' Ratio 7.2 TR Peak Velocity 333.1 cm/s TR Peak Gradient 44.4 mmHg Right Ventricular Systolic Press 48.6 mmHg FINDINGS Left Ventricle Left ventricular ejection fraction is estimated at 40-45 %. Left ventricular cavity size normal. Moderate concentric left ventricular hypertrophy. Right Ventricle Moderate pulmonary hypertension. Moderate pulmonary hypertension. Right Atrium Normal right atrial size. Left Atrium Mildly increased left atrial diameter. Severely increased left atrial volume. Mildly increased left atrial area. No evidence for an atrial septal defect. Mitral Valve Structurally normal mitral valve. No mitral stenosis or prolapse. Mild mitral regurgitation. Mitral annular calcification. Aortic Valve Trileaflet aortic valve. Focal thickening of the aortic valve cusps. Mild aortic stenosis with a peak gradient of 15 mmHg and a mean gradient of 7 mmHg. Tricuspid Valve Mild tricuspid regurgitation. Pulmonic Valve Structurally normal pulmonic valve. Pericardium Normal pericardium. No pericardial effusion. Aorta Normal size aortic root and proximal ascending aorta. CONCLUSIONS Reduced LV systolic function ejection fraction 40-45% Mild aortic stenosis Left atrial enlargement Previewed by: Dr. Dallas Smith MD (Electronically Signed) Final Date: 31 December 2021 11:06
--- NOTE | 2021-12-31 11:34 | P.CRDCN ---
History of Present Illness History of present illness: HISTORY OF PRESENTING ILLNESS This is a pleasant 71-year-old male with past medical history of severe pulmonary fibrosis, Coronary artery disease status post CABG in 2016 (HOWE to LAD, SVT to diagonal, Obtuse marginal and PDA branch of RCA), and history of PCI in the past , hypertension, dyslipidemia, paroxysmal atrial fibrillation on Coumadin. He follows in the office with Dr. Barbosa. We have been asked to see in consultation for congestive heart failure. Patient presents emergency [facility] with complaints of shortness of breath and LE edema, lightheadedness and dizziness. Patient states over the last few weeks he's been noticing increased shortness of breath, orthopnea. He also endorses some increased mild lower extremity edema. He denies any chest pain. He doesn't endorse with activity he was had increased dizziness and lightheadedness. No syncope. He does endorse increased salt intake. He denies cough, fever, chills. He endorses weight loss. His blood pressure is elevated this morning however patient has not received his antihypertensives in the past 48 hours. DIAGNOSTICS * EKG reveals sinus tachycardia, PVCs, heart rate 107, nonspecific ST-T wave abnormalities, LVH, no acute ischemia * Lexiscan stress test in the office 06/2021 revealed inferior hypokinesia with a fixed defect and some sera-infarct ischemia noted, similar to previous test in 2019, EF 50% * Echocardiogram 03/2021 revealed EF 50%, severely dilated left atrium, mild mitral regurgitation, mild tricuspid regurgitation * Chest xray diffuse airspace opacities in the lungs, increased compared to chest x-ray on 10/24/21. consider infectious etiologies vs CHF. * Laboratory reviewed, troponin 0.072, proBNP 4730, INR 5.2, sodium 136, potassium 29, serum creatinine 1.1, troponin negative, influenza negative * Current home cardiac medications include metoprolol titrate 100mg daily, Coumadin 5 mg nightly, clonidine 0.1 mg 4 times a day, rosuvastatin 10 mg nightly REVIEW OF SYSTEMS At the time of my exam: CONSTITUTIONAL: Denies fever or chills. Reports dizziness and lightheadedness CARDIOVASCULAR: Denies chest pain, +shortness of breath,+ orthopnea, Denies PND or palpitations. RESPIRATORY: Denies cough. GASTROINTESTINAL: Denies abdominal pain, diarrhea, constipation, nausea or vomit ing. MUSCULOSKELETAL: Denies myalgias. NEUROLOGIC: Denies numbness, tingling, headacbe or weakness. ENDOCRINE: Denies fatigue, weight change, polydipsia or polyurina. GENITOURINARY: Denies burning, hematuria or urgency with micturation. HEMATOLOGIC: Denies history of anemia or bleeding. PHYSICAL EXAMINATION Blood pressure 192/116, heart rate 111, afebrile, oxygen saturations 95% on 3 L nasal cannula CONSTITUTIONAL: No apparent distress. HEENT: Head is normocephalic. Pupils are equal, round. Sclerae anicteric. Mucous membranes of the mouth are moist. No JVD. CHEST EXAMINATION: Lungs are crackles bilateral bases to auscultation. No chest wall tenderness is noted on palpation or with deep breathing. HEART EXAMINATION: Regular rate and rhythm. S1, S2 heard. No murmurs, gallops or rub. ABDOMEN: Soft, nontender. Positive bowel sounds. EXTREMITIES: 2+ peripheral pulses, 1+ bilateral lower extremity edema and no calf tenderness. NEUROLOGIC EXAMINATION: Patient is awake, alert and oriented x3. ASSESSMENT Shortness of breath, could be combination of severe pulmonary fibrosis and congestive heart failure, possible pulmonary hypertension Acute heart failure with preserved ejection fraction, patient with increased salt intake at home Hypertensive Urgency Pulmonary fibrosis Supratherapeutic INR Coronary artery disease status post CABG in 2016 (HOWE to LAD, SVT to diagonal, Obtuse marginal and PDA branch of RCA), history of PCI in the past Hypertension Dyslipidemia Paroxysmal atrial fibrillation on Coumadin PLAN Obtain 2D echocardiogram and doppler study to assess cardiac structure and function. Evaluate pulmonary hypertension IV Lasix 40mg Q8hr Monitor I/Os daily weights renal function and electrolytes Start losartan 25mg daily Transition to Coreg 6.25mg BID Continue aspirin, statin, and clonidine Further recommendations based on clinical course Nurse practitioner note has been reviewed by physician. Signing provider agrees with the documented findings, assessment, and plan of care. Past Medical History Past Medical History: Atrial Fibrillation, Chest Pain / Angina, GERD/Reflux, Hyperlipidemia, Hypertension, Osteoarthritis (OA) Additional Past Medical History / Comment(s): CURRENT: HAS BEEN HAVING OCCASIONAL CHEST PAIN/PRESSUE WITH SOB, hx of bilateral tinnitis, UTI, occasional back pain, hiatal hernia, past dysphagia related to allergic reaction to medication, gout . pulmonary fibrosis History of Any Multi-Drug Resistant Organisms: None Reported Past Surgical History: Cardiac Ablation, Coronary Bypass/CABG, Heart Catheterization With Stent, Orthopedic Surgery Additional Past Surgical History / Comment(s): LEFT KNEE surgery for injury in [place], LEFT ROTATOR CUFF, CARDIOVERSION X 2, colonoscopy with benign po lypectomy, bilateral cataract removals, quadruple bypass 03/13 Past Anesthesia/Blood Transfusion Reactions: No Reported Reaction Date of Last Stent Placement:: 1999 Past Psychological History: No Psychological Hx Reported Additional Psychological History / Comment(s): Pt resides with his spouse. He is independent. He drives. Smoking Status: Former smoker Past Alcohol Use History: Occasional Additional Past Alcohol Use History / Comment(s): QUIT SMOKING 25 YRS AGO (1988), SMOKED FOR 20 YRS, 1PPD Past Drug Use History: Marijuana Additional Drug Use History / Comment(s): ocassional THC gummie use - Past Family History Mother Family Medical History: No Reported History Additional Family Medical History / Comment(s): Mother of a sunstroke in her late 30's Father Family Medical History: Coronary Artery Disease (CAD) Additional Family Medical History / Comment(s): Father of heart disease (pt unsure if it was a [place]) in his early 40's Medications and Allergies Home Medications Medication Instructions Recorded Confirmed Type Albuterol Sulfate [Proventil Hfa] 2 puff INHALATION RT-Q6H PRN 02/25/16 12/30/21 History Indomethacin [Indocin] 50 mg PO BID PRN 12/04/18 12/30/21 History Metoprolol Tartrate [Lopressor] 100 mg PO DAILY 12/04/18 12/31/21 History Mometasone Inhalr 220 Mcg/Puff 2 puff INHALATION RT-BID 10/23/21 12/30/21 History [Asmanex] Nintedanib Esylate [Ofev] 150 mg PO BID 10/23/21 12/30/21 History Rosuvastatin [Crestor] 10 mg PO HS 10/23/21 12/30/21 History Warfarin [Coumadin] 5 mg PO W/SUPPER 12/30/21 12/30/21 History cloNIDine HCL [Catapres] 0.1 mg PO QID 12/30/21 12/30/21 History predniSONE 10 mg PO DAILY 12/30/21 12/30/21 History Allergies Allergy/AdvReac Type Severity Reaction Status Date / Time benazepril Allergy THROAT Verified 12/30/21 18:49 Swelling duloxetine [From Cymbalta] Allergy THROAT Verified 12/30/21 18:49 Swelling amlodipine AdvReac HEADACHE Verified 12/30/21 18:49 atorvastatin [From Lipitor] AdvReac EDEMA Verified 12/30/21 18:49 pravastatin AdvReac MUSCLE PAIN Verified 12/30/21 18:49 simvastatin AdvReac MUSCLE PAIN Verified 12/30/21 18:49 Physical Exam Vitals: Vital Signs Temp Pulse Pulse Resp BP BP Pulse Ox 12/31/21 03:39 97.6 F 99 16 174/107 94 L 12/30/21 23:40 97.4 F L 107 H 25 H 146/94 96 12/30/21 20:42 96 12/30/21 20:28 92 12/30/21 19:49 97.5 F L 108 H 27 H 152/82 97 12/30/21 18:57 97.8 F 93 142/87 98 12/30/21 18:20 117 H 24 131/100 97 12/30/21 16:00 97.7 F 104 H 24 144/93 100 12/30/21 14:55 101 H 22 12/30/21 14:46 101 H 22 99 12/30/21 13:09 98 20 156/97 100 12/30/21 11:17 96 22 12/30/21 11:09 98 22 12/30/21 10:15 26 H 12/30/21 10:04 97.6 F 105 H 28 H 119/82 98 Intake and Output 12/30/21 12/31/21 12/31/21 22:59 06:59 14:59 Intake Total 300 Output Total 1 400 Balance 299 -400 Intake: Oral 300 Output: Urine 400 Stool 1 Other: Voiding Method Toilet Toilet # Voids 2 Weight 78.8 kg Results 12/30/21 10:40 12/30/21 10:40 Cardiac Enzymes 12/30/21 12/30/21 12/30/21 Range/Units 10:40 10:40 13:23 AST 33 (17-59) U/L Troponin I 0.072 H* 0.075 H* (0.000-0.034) ng/mL 12/30/21 Range/Units 16:43 AST (17-59) U/L Troponin I 0.091 H* (0.000-0.034) ng/mL Coagulation 12/30/21 Range/Units 10:40 PT 52.0 H (9.0-12.0) sec APTT 41.8 H (22.0-30.0) sec CBC 12/30/21 Range/Units 10:40 WBC 9.8 (3.8-10.6) k/uL RBC 4.69 (4.30-5.90) m/uL Hgb 15.5 (13.0-17.5) gm/dL Hct 47.5 (39.0-53.0) % Plt Count 167 (150-450) k/uL Comprehensive Metabolic Panel 12/30/21 Range/Units 10:40 Sodium 136 L (137-145) mmol/L Potassium 3.9 (3.5-5.1) mmol/L Chloride 95 L (98-107) mmol/L Carbon Dioxide 39 H (22-30) mmol/L BUN 29 H (9-20) mg/dL Creatinine 1.17 (0.66-1.25) mg/dL Glucose 141 H (74-99) mg/dL Calcium 8.6 (8.4-10.2) mg/dL AST 33 (17-59) U/L ALT 18 (4-49) U/L Alkaline Phosphatase 63 (38-126) U/L Total Protein 5.7 L (6.3-8.2) g/dL Albumin 3.1 L (3.5-5.0) g/dL Current Medications Generic Name Dose Route Start Last Admin Trade Name Freq PRN Reason Stop Dose Admin Albuterol/Ipratropium 3 ml 12/30/21 16:00 12/31/21 07:27 Ipratropium-Albuterol 3 Ml Neb INHALATION Not Given RT-QID CHE Albuterol/Ipratropium 3 ml 12/30/21 12:31 Ipratropium-Albuterol 3 Ml Neb INHALATION RT-Q2H PRN Shortness Of Breath Or Wheezing Alprazolam 0.5 mg 12/30/21 18:15 12/30/21 18:32 Alprazolam 0.5 Mg Tab PO 0.25 mg QID PRN Administration Anxiety Aspirin 325 mg 12/31/21 09:00 Aspirin 325 Mg Tab PO DAILY CHE Furosemide 40 mg 12/30/21 12:00 12/31/21 03:05 Furosemide 10 Mg/Ml 4 Ml Vial IV 40 mg Q8H CHE Administration Hydromorphone HCl 1 mg 12/30/21 18:16 12/30/21 18:19 Hydromorphone 1 Mg/Ml 1 Ml Syringe IVP 0.5 mg Q6HR PRN Administration Pain Methylprednisolone Sodium Succinate 60 mg 12/30/21 18:00 12/31/21 06:33 Methylprednisolone Sod Succi 125 Mg/2 Ml Vial IV 60 mg Q6HR CHE Administration Naloxone HCl 0.2 mg 12/30/21 12:31 Naloxone 0.4 Mg/Ml 1 Ml Vial IVP Q2M PRN Opioid Reversal Nitroglycerin 1 inch 12/30/21 13:00 12/30/21 21:01 Nitroglycerin Oint 1 Inch/Gm Packet TOPICAL 1 inch QID CHE Administration Intake and Output 12/30/21 12/31/21 12/31/21 22:59 06:59 14:59 Intake Total 300 Output Total 1 400 Balance 299 -400 Intake: Oral 300 Output: Urine 400 Stool 1 Other: Voiding Method Toilet Toilet # Voids 2 Weight 78.8 kg 12/30/21 10:40 12/30/21 10:40
[2021-12-31] MEDS: carvediloL 6.25 MG TAB PO SCH ×2 (11:50→17:30)
[2021-12-31] MEDS: LOSARTAN 25 MG TAB PO SCH (11:50)
[2021-12-31] MEDS ORDERED: DEXTROSE 50% SYRINGE 50 ML IVP PRN ×2 (12:32)
[2021-12-31] MEDS ORDERED: INDOMETHACIN 25 MG CAP PO PRN (12:49)
[2021-12-31] MEDS: PANTOPRAZOLE 40 MG/10 ML VIAL IVP SCH (13:07)
--- NOTE | 2021-12-31 13:09 | P.CNPUL ---
History of Present Illness Consult date: 12/31/21 Requesting physician: Dagoberto Weems Reason for consult: dyspnea Chief complaint: Shortness of breath History of present illness: This is a 71-year-old white male patient with past medical history of IPF on home oxygen and Ofev, atrial fibrillation with previous cardiac ablation, hypertension, hyperlipidemia, osteoarthritis, coronary artery disease with history of coronary artery bypass grafting and stenting, former smoker, who presented to the emergency department on 12/28/2021 complaining of worsening dyspnea. His symptoms have progressed over the past few weeks. In addition patient has been having frequent loose stools multiple times a day over the past few weeks, which could be related to Ofev. Patient denied any fever, no chills, no phlegm production, no leg pain, no increased leg swelling on presentation. Physical exam does reveal some pretibial edema. His chest x-ray showing diffuse airspace opacities throughout the lungs which have increased from 10/24/2021, and acute congestive heart failure was suggested to correlate with BNP given the cardiomegaly and pulmonary vessel congestion, infectious etiology was also suggested to be ruled out. Admission blood work showed normal white count of 9.8, hemoglobin of 15.5, platelet count is 167, INR is 5.2, sodium is 136, pota ssium 3.9, chloride is 95, CO2 39, B1 is 29, creatinine is 1.17, lactic acid is 1.3, troponin levels were 0.072, 0.075, and 0.091. [employer] level came back elevated at 4730, patient was tested for COVID-19 and influenza A and B and was found to be negative for over 3. Stool lactoferrin was negative. He was started on IV Lasix by cardiology, echocardiogram showed left ventricle ejection fraction of 40-45%, moderate concentric LVH, mild aortic stenosis, left atrial enlargement. Patient continues on nebulized bronchodilators and IV steroids. Pro-calcitonin level has been sent and pending. No history of fever or chills no sick contacts. Review of Systems All systems: negative Constitutional: Denies chills, Denies fever Eyes: denies blurred vision, denies pain Ears, nose, mouth and throat: Denies headache, Denies sore throat Cardiovascular: Denies chest pain, Denies shortness of breath Respiratory: Denies cough Gastrointestinal: Denies abdominal pain, Denies diarrhea, Denies nausea, Denies vomiting Musculoskeletal: Denies myalgias Integumentary: Denies pruritus, Denies rash Neurological: Denies numbness, Denies weakness Psychiatric: Denies anxiety, Denies depression Endocrine: Denies fatigue, Denies weight change Past Medical History Past Medical History: Atrial Fibrillation, Chest Pain / Angina, GERD/Reflux, Hyperlipidemia, Hypertension, Osteoarthritis (OA) Additional Past Medical History / Comment(s): CURRENT: HAS BEEN HAVING OCCASIONAL CHEST PAIN/PRESSUE WITH SOB, hx of bilateral tinnitis, UTI, oc casional back pain, hiatal hernia, past dysphagia related to allergic reaction to medication, gout . pulmonary fibrosis History of Any Multi-Drug Resistant Organisms: None Reported Past Surgical History: Cardiac Ablation, Coronary Bypass/CABG, Heart Catheterization With Stent, Orthopedic Surgery Additional Past Surgical History / Comment(s): LEFT KNEE surgery for injury in [place], LEFT ROTATOR CUFF, CARDIOVERSION X 2, colonoscopy with benign polypectomy, bilateral cataract removals, quadruple bypass 03/13 Past Anesthesia/Blood Transfusion Reactions: No Reported Reaction Date of Last Stent Placement:: 1999 Past Psychological History: No Psychological Hx Reported Additional Psychological History / Comment(s): Pt resides with his spouse. He is independent. He drives. Smoking Status: Former smoker Past Alcohol Use History: Occasional Additional Past Alcohol Use History / Comment(s): QUIT SMOKING 25 YRS AGO (1988), SMOKED FOR 20 YRS, 1PPD Past Drug Use History: Marijuana Additional Drug Use History / Comment(s): ocassional THC gummie use - Past Family History Mother Family Medical History: No Reported History Additional Family Medical History / Comment(s): Mother of a sunstroke in her late 30's Father Family Medical History: Coronary Artery Disease (CAD) Additional Family Medical History / Comment(s): Father of heart disease (pt unsure if it was a [place]) in his early 40's Medications and Allergies Home Medications Medication Instructions Recorded Confirmed Type Albuterol Sulfate [Proventil Hfa] 2 puff INHALATION RT-Q6H PRN 02/25/16 12/30/21 History Indomethacin [Indocin] 50 mg PO BID PRN 12/04/18 12/30/21 History Metoprolol Tartrate [Lopressor] 100 mg PO DAILY 12/04/18 12/31/21 History Mometasone Inhalr 220 Mcg/Puff 2 puff INHALATION RT-BID 10/23/21 12/30/21 History [Asmanex] Nintedanib Esylate [Ofev] 150 mg PO BID 10/23/21 12/30/21 History Rosuvastatin [Crestor] 10 mg PO HS 10/23/21 12/30/21 History Warfarin [Coumadin] 5 mg PO W/SUPPER 12/30/21 12/30/21 History cloNIDine HCL [Catapres] 0.1 mg PO QID 12/30/21 12/30/21 History predniSONE 10 mg PO DAILY 12/30/21 12/30/21 History Allergies Allergy/AdvReac Type Severity Reaction Status Date / Time benazepril Allergy THROAT Verified 12/30/21 18:49 Swelling duloxetine [From Cymbalta] Allergy THROAT Verified 12/30/21 18:49 Swelling amlodipine AdvReac HEADACHE Verified 12/30/21 18:49 atorvastatin [From Lipitor] AdvReac EDEMA Verified 12/30/21 18:49 pravastatin AdvReac MUSCLE PAIN Verified 12/30/21 18:49 simvastatin AdvReac MUSCLE PAIN Verified 12/30/21 18:49 Physical Exam Vitals: Vital Signs Temp Pulse Pulse Resp BP BP Pulse Ox 12/31/21 11:50 86 24 159/69 96 12/31/21 11:10 94 12/31/21 11:01 90 12/31/21 09:45 111 H 25 H 12/31/21 09:27 192/116 12/31/21 07:35 97.8 F 112 H 26 H 194/106 95 12/31/21 03:39 97.6 F 99 16 174/107 94 L 12/30/21 23:40 97.4 F L 107 H 25 H 146/94 96 12/30/21 20:42 96 12/30/21 20:28 92 12/30/21 19:49 97.5 F L 108 H 27 H 152/82 97 12/30/21 18:57 97.8 F 93 142/87 98 12/30/21 18:20 117 H 24 131/100 97 12/30/21 16:00 97.7 F 104 H 24 144/93 100 12/30/21 14:55 101 H 22 12/30/21 14:46 101 H 22 99 12/30/21 13:09 98 20 156/97 100 Intake and Output 12/30/21 12/31/21 12/31/21 22:59 06:59 14:59 Intake Total 300 Output Total 1 400 300 Balance 299 -400 -300 Intake: Oral 300 Output: Urine 400 300 Stool 1 Other: Voiding Method Toilet Toilet Toilet # Voids 2 Weight 78.8 kg GENERAL EXAM: Alert, very pleasant, 71-year-old white male, resting comfortably in bed, 3 L of oxygen satting 96% comfortable in no apparent distress. HEAD: Normocephalic/atraumatic. EYES: Normal reaction of pupils, equal size. Conjunctiva pink, sclera white. NOSE: Clear with pink turbinates. THROAT: No erythema or exudates. NECK: No masses, no JVD, no thyroid enlargement, no adenopathy. CHEST: No chest wall deformity. Symmetrical expansion. LUNGS: Equal air entry with diffuse crackles CVS: Regular rate and rhythm, normal S1 and S2, no gallops, no murmurs, no rubs ABDOMEN: Soft, nontender. No hepatosplenomegaly, normal bowel sounds, no guarding or rigidity. EXTREMITIES: No clubbing, no edema, no cyanosis, 2+ pulses and upper and lower extremities. MUSCULOSKELETAL: Muscle strength and tone normal. SPINE: No scoliosis or deformity SKIN: No rashes CENTRAL NERVOUS SYSTEM: Alert and oriented -3. No focal deficits, tone is normal in all 4 extremities. PSYCHIATRIC: Alert and oriented -3. Appropriate affect. Intact judgment and insight. Results - Laboratory Findings CBC and BMP: 12/30/21 10:40 12/30/21 10:40 PT/INR, D-dimer PT 52.0 sec (9.0-12.0) H 12/30/21 10:40 INR 5.2 (<1.2) H* 12/30/21 10:40 Abnormal lab findings: Abnormal Labs 12/30/21 12/30/21 12/30/21 10:40 10:40 10:40 MCV 101.1 H Neutrophils # 8.5 H Lymphocytes # 0.5 L PT 52.0 H INR 5.2 H* APTT 41.8 H Sodium 136 L Chloride 95 L Carbon Dioxide 39 H BUN 29 H Glucose 141 H Troponin I Total Protein 5.7 L Albumin 3.1 L 08/09/1712/30/21 12/30/21 10:40 13:23 16:43 MCV Neutrophils # Lymphocytes # PT INR APTT Sodium Chloride Carbon Dioxide BUN Glucose Troponin I 0.072 H* 0.075 H* 0.091 H* Total Protein Albumin - Diagnostic Findings Chest x-ray: report reviewed, image reviewed Additional studies: EKG, echocardiogram, chest x-ray reviewed Assessment and Plan Plan: Assessment: #1. Acute on chronic dyspnea, related to acute exacerbation of CHF, with previously diastolic dysfunction, echocardiogram on 12/31/2021 shows ejection fraction of 40-45%, moderate pulmonary hypertension, and severely increased left atrial volume #2. Elevated troponins #3. Chronic hypoxic respiratory failure related to history of IPF patient is maintained on 20 have liters of oxygen on a regular basis #4. Multiple episodes of diarrhea likely related to Ofev #5. Coronary artery disease with previous bypass surgery and stenting #6. History of hiatal hernia #7. Gout #8. Hypertension #9. Hyperlipidemia Plan: Agree with diuretics Monitor electrolytes and renal profile We will obtain serum pro-calcitonin level Continue with bronchodilators and steroids Ofev remains on hold We'll continue to all patient's clinical course I have personally seen and examined the patient, performed the documentation and the assessment and plan as written. Number of minutes spent on the visit: [15] Time with Patient: Greater than 30
[2021-12-31] MEDS: HYDROmorphone 1 MG/ML 1 ML SYRINGE IVP PRN ×2 (13:13→23:21)
--- NOTE | 2021-12-31 13:42 | P.HPIM ---
History of Present Illness H&P Date: 12/31/21 This is a 71-year-old gentleman with past medical history of progressive IPF on Ofev , chronic hypoxic respiratory failure on 3 L nasal cannula atrial fibrillation, gastroesophageal reflux disease, hypertension, hyperlipidemia, osteoarthritis, CAD with history of stents, former smoker and multiple other medical issues presented to the ER with worsening shortness of breath over the last few weeks, hypertensive-reports has not had his antihypertensives in 48 hours. Denies chest pain, palpitations .Denies cough, congestion, fever or chills. Denies syncope Chest x-ray reported diffuse airspace opacity Xarelto lungs increased from 10/24/2021, congestive heart failure changes-correlate with serum BnP secondary to cardiomegaly and pulmonary vascular congestion, and possible infectious etiology. EKG reported sinus tach with frequent PACs, nonspecific ST and T-wave abnormalities.troponin 0.072, 0.075, 0.091, proBNP 4730, INR 5.2. Afebrile, normal WBC, hemoglobin 15.5, platelets 167, sodium 1 36, potassium 3.9, chloride 95, bicarb 39, BUN 29, creatinine 1.17, lactic acid 1.3. Testing negative for COVID-19, influenza A/B. IV push diuretics, IV steroids and nebulized bronchodilators initiated. Past Medical History Past Medical History: Atrial Fibrillation, Chest Pain / Angina, GERD/Reflux, Hyperlipidemia, Hypertension, Osteoarthritis (OA) Additional Past Medical History / Comment(s): CURRENT: HAS BEEN HAVING OCCASIONAL CHEST PAIN/PRESSUE WITH SOB, hx of bilateral tinnitis, UTI, occasional back pain, hiatal hernia, past dysphagia related to allergic reaction to medication, gout . pulmonary fibrosis History of Any Multi-Drug Resistant Organisms: None Reported Past Surgical History: Cardiac Ablation, Coronary Bypass/CABG, Heart Catheterization With Stent, Orthopedic Surgery Additional Past Surgical History / Comment(s): LEFT KNEE surgery for injury in [place], LEFT ROTATOR CUFF, CARDIOVERSION X 2, colonoscopy with benign polypectomy, bilateral cataract removals, quadruple bypass 03/13 Past Anesthesia/Blood Transfusion Reactions: No Reported Reaction Date of Last Stent Placement:: 1999 Past Psychological History: No Psychological Hx Reported Additional Psychological History / Comment(s): Pt resides with his spouse. He is independent. He drives. Smoking Status: Former smoker Past Alcohol Use History: Occasional Additional Past Alcohol Use History / Comment(s): QUIT SMOKING 25 YRS AGO (1988), SMOKED FOR 20 YRS, 1PPD Past Drug Use History: Marijuana Additional Drug Use History / Comment(s): ocassional THC gummie use - Past Family History Mother Family Medical History: No Reported History Additional Family Medical History / Comment(s): Mother of a sunstroke in her late 30's Father Family Medical History: Coronary Artery Disease (CAD) Additional Family Medical History / Comment(s): Father of heart disease (pt unsure if it was a [place]) in his early 40's Medications and Allergies Home Medications Medication Instructions Recorded Confirmed Type Albuterol Sulfate [Proventil Hfa] 2 puff INHALATION RT-Q6H PRN 02/25/16 12/30/21 History Indomethacin [Indocin] 50 mg PO BID PRN 12/04/18 12/30/21 History Metoprolol Tartrate [Lopressor] 100 mg PO DAILY 12/04/18 12/31/21 History Mometasone Inhalr 220 Mcg/Puff 2 puff INHALATION RT-BID 10/23/21 12/30/21 History [Asmanex] Nintedanib Esylate [Ofev] 150 mg PO BID 10/23/21 12/30/21 History Rosuvastatin [Crestor] 10 mg PO HS 10/23/21 12/30/21 History Warfarin [Coumadin] 5 mg PO W/SUPPER 12/30/21 12/30/21 History cloNIDine HCL [Catapres] 0.1 mg PO QID 12/30/21 12/30/21 History predniSONE 10 mg PO DAILY 12/30/21 12/30/21 History Allergies Allergy/AdvReac Type Severity Reaction Status Date / Time benazepril Allergy THROAT Verified 12/30/21 18:49 Swelling duloxetine [From Cymbalta] Allergy THROAT Verified 12/30/21 18:49 Swelling amlodipine AdvReac HEADACHE Verified 12/30/21 18:49 atorvastatin [From Lipitor] AdvReac EDEMA Verified 12/30/21 18:49 pravastatin AdvReac MUSCLE PAIN Verified 12/30/21 18:49 simvastatin AdvReac MUSCLE PAIN Verified 12/30/21 18:49 Physical Exam Vitals: Vital Signs Temp Pulse Pulse Resp BP BP Pulse Ox 12/31/21 11:50 86 24 159/69 96 12/31/21 11:10 94 12/31/21 11:01 90 12/31/21 09:45 111 H 25 H 12/31/21 09:27 192/116 12/31/21 07:35 97.8 F 112 H 26 H 194/106 95 12/31/21 03:39 97.6 F 99 16 174/107 94 L 12/30/21 23:40 97.4 F L 107 H 25 H 146/94 96 12/30/21 20:42 96 12/30/21 20:28 92 12/30/21 19:49 97.5 F L 108 H 27 H 152/82 97 12/30/21 18:57 97.8 F 93 142/87 98 12/30/21 18:20 117 H 24 131/100 97 12/30/21 16:00 97.7 F 104 H 24 144/93 100 12/30/21 14:55 101 H 22 12/30/21 14:46 101 H 22 99 12/30/21 13:09 98 20 156/97 100 Intake and Output 12/30/21 12/31/21 12/31/21 22:59 06:59 14:59 Intake Total 300 Output Total 1 400 300 Balance 299 -400 -300 Intake: Oral 300 Output: Urine 400 300 Stool 1 Other: Voiding Method Toilet Toilet Toilet # Voids 2 Weight 78.8 kg PHYSICAL EXAM: VITAL SIGNS: As above GENERAL: Pleasant, alert and oriented 3 ,Sitting up in bed, short of breath with conversing HEENT: Normocephalic /Atraumatic, Conjunctivae normal. eyes normal. NECK: Supple, No JVD. No thyroid enlargement. No LNs CARDIOVASCULAR: S1, S2 regular. No murmur RESPIRATION: Equal air entry with diffuse scattered crackles. ABDOMEN: Soft, nontender . No guarding. no masses palpable. No ascites, No hepatosplenomegaly.Bowel sounds heard. LEGS: No edema. no swelling. No cyanosis, no clubbing, no calf tenderness. Stage II Left heel, stage II left foot fourth digit PSYCHIATRY: Alert and oriented X3, mood and affect normal. NERVOUS SYSTEM: Cranial N 2-12 grossly normal. No focal deficits. Strength and sensation grossly intact. Skin: Warm and dry, no rash. Stage II coccyx, sacrum Plan: Continue current medication regime ,monitoring and symptomatic treatment. Results CBC & Chem 7: 12/30/21 10:40 12/30/21 10:40 Labs: Abnormal Lab Results - Last 24 Hours (Table) 12/30/21 12/30/21 Range/Units 13:23 16:43 Troponin I 0.075 H* 0.091 H* (0.000-0.034) ng/mL Microbiology - Last 24 Hours (Table) 12/30/21 13:08 Stool Culture - Preliminary Stool Thrombosis Risk Factor Assmnt - Choose All That Apply Each Factor Represents 1 point: Heart failure (<1month), Serious lung disease incl. pneumonia (< 1month) Other Risk Factors: No Other congenital or acquired thrombophilia - If yes, enter type in comment: No Thrombosis Risk Factor Assessment Total Risk Factor Score: 2 Thrombosis Risk Factor Assessment Level: Low Risk Assessment and Plan Assessment: Acute on chronic hypoxic respiratory failure secondary to progressive idiopathic pulmonary fibrosis, acute CHF Exac. Diastolic dysfunction previously (Echo pending), pulmonary hypertension. Wears 3 L nasal cannula@ home. Elevated troponins, cardiology following Hypertensive urgency IPF CAD, history of CABG,stents Paroxysmal atrial fibrillation on Coumadin, history of ablation Supratherapeutic INR Hypertension Hyperlipidemia Hiatal Hernia, history of Gout Chronic peripheral neuropathy Osteoarthritis Former nicotine dependence Plan: Continue on current medication regime ,monitoring and symptomatic treatment. Diuretics with IV push Lasix. CHF pathway/strict I and os /daily weights. Close monitoring of renal function and electrolytes with repeat labs ordered for a.m.Aggressive pulmonary toileting, nebulized bronchodilators, IV steroids. Echo pending .Pulmonary and cardiology consult in place, recommendations pending. Pro-calcitonin ordered. The impression and plan of care has been dictated as directed. : I performed a history and examination of this patient, discussed the same with the dictator. I agree with the dictator's note ,documented as a scribe. Any additional findings or plans will be noted.
--- NOTE | 2021-12-31 15:49 | FL ---
EXAMINATION TYPE: FL barium swallow w video DATE OF EXAM: 12/31/2021 MODIFIED SWALLOW / DEGLUTITION STUDY CLINICAL HISTORY: Dysphagia. Admitted for COPD exacerbation. Possible pneumonia. TECHNIQUE: Deglutition study is performed utilizing thin liquid barium, barium thick applesauce, and barium coated cracker. 1 minute 56 of fluoro time and 0 images obtained. COMPARISON: None. FINDINGS: The oral and pharyngeal phases show satisfactory initiation and propagation with all modali ties tested. Satisfactory mastication is seen with solid modalities tested. Single episode of transie nt penetration with thin liquid barium. No aspiration with any modality tested. No significant phary ngeal residue was appreciated. IMPRESSION: No aspiration seen. Please refer to speech therapist notes for further details if necess [place].
[2021-12-31 17:20] LABS: Glucose,Whole Blood 142 mg/dL (70-110)
[2021-12-31] MEDS: INSULIN ASPART (NovoLOG) 100 UNIT/ML VIAL SQ SCH ×2 (17:30→21:15)
[2021-12-31 19:55] LABS: Glucose,Whole Blood 181 mg/dL (70-110)
[2021-12-31] MEDS ORDERED: PATIENT'S OWN (Nintedanib Esylate [Ofev] 150 MG Capsule) PO SCH (21:00)
[2021-12-31] MEDS: NON FORMULARY DRUG (Rosuvastatin 20 MG Tablet) PO SCH (21:15)
[2022-01-01] MEDS: FUROSEMIDE 10 MG/ML 4 ML VIAL IV SCH ×2 (03:58→13:19)
[2022-01-01 06:00] LABS: Glucose,Whole Blood 117 mg/dL (70-110)
[2022-01-01] MEDS: methylPREDNISolone SOD SUCCI 125 MG/2 ML VIAL IV SCH (06:17)
[2022-01-01] MEDS: carvediloL 6.25 MG TAB PO SCH ×2 (06:17→17:06)
[2022-01-01] MEDS: INSULIN ASPART (NovoLOG) 100 UNIT/ML VIAL SQ SCH ×4 (06:39→21:19)
[2022-01-01] MEDS: IPRATROPIUM-ALBUTEROL 3 ML NEB INHALATION SCH ×4 (08:34→19:50)
--- NOTE | 2022-01-01 08:54 | P.PN ---
Subjective Progress Note Date: 01/01/22 Principal diagnosis: Shortness of breath This is a 71-year-old gentleman with a past medical history significant for CAD and status post CABG in 2016 as well as hypertension and dyslipidemia and also paroxysmal atrial fibrillation as well as history of pulmonary fibrosis and chr onic hypoxic respiratory failure on oxygen at home who was admitted to the hospital with increasing shortness of breath and bilateral lower except his edema and he was diagnosed with heart failure exacerbation. He was hypertensive when he presented to the hospital. He was started on Lasix IV and also we adjusted the blood pressure medication including starting the patient on losartan and carvedilol. The patient was seen this morning. He stated that he is not feeling well. He continues to have shortness of breath. He is tachycardic on examination. I am going to obtain a chest x-ray and also obtain d-dimer to rule out PE. He underwent an echocardiogram which revealed mildly impaired only function was elevated between 40-45%. He does have also moderate pulmonary hypertension. He also underwent to obtain a stat INR. If the INR is low I might start the patient on heparin IV for possible acute coronary syndrome as an etiology for his symptoms. Pulmonary critical care team is on the case as well. Further recommendation to follow. Objective - Vital Signs Vital signs: Vital Signs Temp 97.5 F L 01/01/22 03:41 Pulse 88 01/01/22 08:44 Resp 22 01/01/22 06:16 BP 144/98 01/01/22 06:16 Pulse Ox 90 L 01/01/22 06:16 FiO2 Intake & Output 12/31/21 01/01/22 01/01/22 18:59 06:59 18:59 Intake Total 236 690 Output Total 400 700 Balance -164 -10 Weight 78.8 kg 79.3 kg Intake: Oral 236 690 Output: Urine 300 700 Stool 100 Other: Voiding Method Toilet Toilet # Voids 1 1 # Bowel Movements 1 1 - Constitutional General appearance: Present: no acute distress - Respiratory Respiratory: bilateral: rhonchi, wheezing - Cardiovascular Rhythm: regular Heart sounds: normal: S1, S2 - Labs CBC & Chem 7: 12/30/21 10:40 12/30/21 10:40 Labs: Abnormal Lab Results - Last 24 Hours (Table) 12/31/21 12/31/21 01/01/22 Range/Units 17:18 19:52 05:59 POC Glucose (mg/dL) 142 H 181 H 117 H (70-110) mg/dL Assessment and Plan Assessment: Assessment #1 shortness of breath likely secondary to heart failure with reduced ejection fraction #2 evidence of myocardial injury #3 pulmonary fibrosis #4 CAD and status post CABG #5 paroxysmal atrial fibrillation #6 multiple comorbid conditions Plan #1 continue the current medical regimen #2 continue Lasix IV #3 continue monitor the kidney function and electrolytes #4 rule out pulmonary embolism. Obtaining d-dimer #5 obtain a chest x-ray #6 obtain stat INR and possible starting the patient on heparin IV #7 obtain NT proBNP #8 follow-up with the patient
[2022-01-01] MEDS: PANTOPRAZOLE 40 MG/10 ML VIAL IVP SCH (10:14)
[2022-01-01 10:15] LABS: Basophils % (A) 0 %; Eosinophils % (A) 0 %; HCT 47.1 % (39.0-53.0); HGB 14.6 gm/dL (13.0-17.5); Hypochromasia Moderate; Lymphocytes # (A) 0.1 k/uL (1.0-4.8); Lymphocytes % (A) 1 %; MCH 32.3 pg (25.0-35.0); MCHC 31.1 g/dL (31.0-37.0); MCV 103.9 fL (80.0-100.0); Macrocytosis Slight; Mean Platelet Volume 6.9; Monocytes # (A) 0.3 k/uL (0-1.0); Monocytes % (A) 3 %; Neutrophils # (A) 11.3 k/uL (1.3-7.7); Neutrophils % (A) 95 %; Platelet Count 184 k/uL (150-450); RBC 4.53 m/uL (4.30-5.90); RDW 14.2 % (11.5-15.5); WBC 11.8 k/uL (3.8-10.6)
[2022-01-01] MEDS: cloNIDine HCL 0.1 MG TAB PO SCH ×4 (10:15→21:19)
[2022-01-01] MEDS: LOSARTAN 25 MG TAB PO SCH (10:15)
[2022-01-01] MEDS: ASPIRIN 81 MG PO SCH (10:15)
[2022-01-01] MEDS: ALPRAZolam 0.5 MG TAB PO PRN ×2 (10:21→21:22)
[2022-01-01 10:23] LABS: Calcium 8.5 mg/dL (8.4-10.2); Potassium 4.4 mmol/L (3.5-5.1)
[2022-01-01 10:25] LABS: INR 3.5 (<1.2); Prothrombin Time 34.9 sec (9.0-12.0)
--- NOTE | 2022-01-01 11:07 | XR ---
EXAMINATION TYPE: XR chest 2V DATE OF EXAM: 01/01/2022 10:32 AM COMPARISON: Chest radiographs from 12/30/2021. TECHNIQUE: XR chest 2V Frontal and lateral views of the chest. CLINICAL INDICATION:Male, 71 years old with history of SOB and tachycardia; FINDINGS: Lungs/Pleura: Diffuse scattered airspace opacities are present. There may be mild improvement of the aeration of the lung. Pulmonary vascularity: Mild pulmonary vascular congestion. Heart/mediastinum: Cardiomediastinal silhouette is enlarged and stable. Left atrial appendage occlusi on device is present. Musculoskeletal: No acute osseous pathology. Midline sternotomy wires are noted and stable. IMPRESSION: Diffuse airspace opacities which may be minimally improved from prior and 12/30/2021. Superimposed tracey estive heart failure is not entirely excluded.
[2022-01-01 12:02] LABS: Glucose,Whole Blood 139 mg/dL (70-110)
--- NOTE | 2022-01-01 12:26 | P.PN ---
Subjective Progress Note Date: 01/01/22 Principal diagnosis: Shortness of breath. This is a 71-year-old white male patient with past medical history of IPF on home oxygen and Ofev, atrial fibrillation with previous cardiac ablation, hypertension, hyperlipidemia, osteoarthritis, coronary artery disease with history of coronary artery bypass grafting and stenting, former smoker, who presented to the emergency department on 12/28/2021 complaining of worsening dyspnea. His symptoms have progressed over the past few weeks. In addition patient has been having frequent loose stools multiple times a day over the past few weeks, which could be related to Ofev. Patient denied any fever, no chills, no phlegm production, no leg pain, no increased leg swelling on presentation. Physical exam does reveal some pretibial edema. His chest x-ray showing diffuse airspace opacities throughout the lungs which have increased from 10/24/2021, and acute congestive heart failure was suggested to correlate with BNP given the cardiomegaly and pulmonary vessel congestion, infectious etiology was also suggested to be ruled out. Admission blood work showed normal white count of 9.8, hemoglobin of 15.5, platelet count is 167, INR is 5.2, sodium is 136, potassium 3.9, chloride is 95, CO2 39, B1 is 29, creatinine is 1.17, lactic acid is 1.3, troponin levels were 0.072, 0.075, and 0.091. [employer] level came back elevated at 4730, patient was tested for COVID-19 and influenza A and B and was found to be negative for over 3. Stool lactoferrin was negative. He was started on IV Lasix by cardiology, echocardiogram showed left ventricle ejection fraction of 40-45%, moderate concentric LVH, mild aortic stenosis, left atrial enlargement. Patient continues on nebulized bronchodilators and IV steroids. Pro-calcitonin level has been sent and pending. No history of fever or chills no sick contacts. Progress note dated 01/01/2022. 71-year-old male again seen in evaluation, room 375. He has a history of idiopathic pulmonary fibrosis and chronic hypoxemic respiratory failure. He is currently on a drug called OFEV, but, he is having significant complications including refractory diarrhea. He was taking one 50 mg twice a day. Other medical problems include atrial fibrillation, with previous ablation, hypertension, hyperlipidemia, osteoarthritis, CAD, bypass grafting, and previous tobacco use. He was minute with a diagnosis of increasing shortness of breath. White count 11.8 hemoglobin 14.6 hematocrit 47.1 and platelet count 284,000. PTT 34.9 with an INR 3.5. Sodium 135, potassium 4.4, chloride 88, CO2 41, BUN 53, and creatinine 1.46. N-terminal proBNP was 3800. Chest x-ray showed diffuse airspace opacities, which is minimally improved. The patient's pattern may be that of CHF. Objective - Vital Signs Vital signs: Vital Signs Temp 97.3 F L 01/01/22 10:15 Pulse 108 H 01/01/22 10:15 Resp 24 01/01/22 10:15 BP 136/93 01/01/22 10:15 Pulse Ox 98 01/01/22 10:15 FiO2 Intake & Output 12/31/21 01/01/22 01/01/22 18:59 06:59 18:59 Intake Total 236 690 Output Total 400 700 Balance -164 -10 Weight 78.8 kg 79.3 kg Intake: Oral 236 690 Output: Urine 300 700 Stool 100 Other: Voiding Method Toilet Toilet Toilet # Voids 1 1 # Bowel Movements 1 1 - Labs CBC & Chem 7: 01/01/22 09:21 01/01/22 09:21 Labs: Abnormal Lab Results - Last 24 Hours (Table) 12/31/21 12/31/21 01/01/22 Range/Units 17:18 19:52 05:59 WBC (3.8-10.6) k/uL MCV (80.0-100.0) fL Neutrophils # (1.3-7.7) k/uL Lymphocytes # (1.0-4.8) k/uL PT (9.0-12.0) sec INR (<1.2) Sodium (137-145) mmol/L Chloride (98-107) mmol/L Carbon Dioxide (22-30) mmol/L BUN (9-20) mg/dL Creatinine (0.66-1.25) mg/dL Glucose (74-99) mg/dL POC Glucose (mg/dL) 142 H 181 H 117 H (70-110) mg/dL 01/01/22 01/01/22 01/01/22 Range/Units 09:21 09:21 09:21 WBC 11.8 H (3.8-10.6) k/uL MCV 103.9 H (80.0-100.0) fL Neutrophils # 11.3 H (1.3-7.7) k/uL Lymphocytes # 0.1 L (1.0-4.8) k/uL PT 34.9 H (9.0-12.0) sec INR 3.5 H (<1.2) Sodium 135 L (137-145) mmol/L Chloride 88 L (98-107) mmol/L Carbon Dioxide 41 H* (22-30) mmol/L BUN 53 H (9-20) mg/dL Creatinine 1.46 H (0.66-1.25) mg/dL Glucose 191 H (74-99) mg/dL POC Glucose (mg/dL) (70-110) mg/dL 01/01/22 Range/Units 12:00 WBC (3.8-10.6) k/uL MCV (80.0-100.0) fL Neutrophils # (1.3-7.7) k/uL Lymphocytes # (1.0-4.8) k/uL PT (9.0-12.0) sec INR (<1.2) Sodium (137-145) mmol/L Chloride (98-107) mmol/L Carbon Dioxide (22-30) mmol/L BUN (9-20) mg/dL Creatinine (0.66-1.25) mg/dL Glucose (74-99) mg/dL POC Glucose (mg/dL) 139 H (70-110) mg/dL Assessment and Plan Assessment: Acute on chronic hypoxemic respiratory failure, secondary to both idiopathic pulmonary fibrosis, and diastolic CHF. Moderate pulmonary hypertension. History of severe idiopathic pulmonary fibrosis, maintained on OFEV. Severe diarrhea secondary to OFEV. CAD with previous bypass grafting and stenting. History of hiatal hernia. History of gout. History of hypertension. History of hyperlipidemia. Plan: Plan dated 01/01/2022. The patient's Solu-Medrol was discontinued in favor of oral prednisone. Pro- calcitonin level is only 0.09. N-terminal proBNP is 3800. The patient remains on breathing treatments. We will continue to follow make recommendations were appropriate. The patient also continues on Lasix, 40 mg, IV push, every 8 hours. The patient is not taking OFEV here in the hospital. Should he resume the medication, he should probably drop back to 150 mg once a day, or 100 mg once a day. Time with Patient: Less than 30
[2022-01-01] MEDS: predniSONE 20 MG TAB PO SCH (13:20)
[2022-01-01 17:09] LABS: Glucose,Whole Blood 156 mg/dL (70-110)
[2022-01-01 20:17] LABS: Glucose,Whole Blood 162 mg/dL (70-110)
[2022-01-01] MEDS ORDERED: FUROSEMIDE 10 MG/ML 4 ML VIAL IV SCH (21:00)
[2022-01-01] MEDS: NON FORMULARY DRUG (Rosuvastatin 20 MG Tablet) PO SCH (21:20)
[2022-01-01] MEDS: HYDROmorphone 1 MG/ML 1 ML SYRINGE IVP PRN (23:21)
--- NOTE | 2022-01-02 05:11 | P.PN ---
Subjective Progress Note Date: 01/01/22 This is a 71-year-old gentleman with past medical history of progressive IPF on Ofev , chronic hypoxic respiratory failure on 3 L nasal cannula atrial fibrillation, gastroesophageal reflux disease, hypertension, hyperlipidemia, osteoarthritis, CAD with history of stents, former smoker and multiple other medical issues presented to the ER with worsening shortness of breath over the last few weeks, hypertensive-reports has not had his antihypertensives in 48 hours. Denies chest pain, palpitations .Denies cough, congestion, fever or chills. Denies syncope Chest x-ray reported diffuse airspace opacity Xarelto lungs increased from 10/24/2021, congestive heart failure changes-correlate with serum BnP secondary to cardiomegaly and pulmonary vascular congestion, and possible infectious etiology. EKG reported sinus tach with frequent PACs, nonspecific ST and T-wave abnormalities.troponin 0.072, 0.075, 0.091, proBNP 4730, INR 5.2. Afebrile, normal WBC, hemoglobin 15.5, platelets 167, sodium 136, potassium 3.9, chloride 95, bicarb 39, BUN 29, creatinine 1.17, lactic acid 1.3. Testing negative for COVID-19, influenza A/B. IV push diuretics, IV steroids and nebulized bronchodilators initiated. 01/01/2022 Patient is seen in follow-up this morning continues to be closely monitored with pulmonary and cardiology following closely. Patient was admitted for CHF along with component of pulmonary fibrosis. Patient is maintained on02 via NC and also is receiving duonebs and oral steroids. Patient was maintained on IV lasix although given his worsening kidney functions, recommending discontinuing the IV lasix for now. Patient is afebrile and denies chest pain or palpitations. Patient continues to report shortness of breath. Review of systems: Constitutional: No reports of fatigue, fever, or chills Cardiovascular: No reports of chest pain or palpitations Respiratory: reports of shortness of breath GI: No reports of nausea, vomiting, or diarrhea : No reports of dysuria or retention Neurovascular: reports of weakness All medications have been reviewed PHYSICAL EXAM: GENERAL: Pleasant, alert and oriented 3 ,Sitting up in bed, short of breath with conversation HEENT: Normocephalic /Atraumatic, Conjunctivae normal. eyes normal. NECK: Supple, No JVD. No thyroid enlargement. No LNs CARDIOVASCULAR: S1, S2 regular. No murmur RESPIRATION: Equal air entry with diffuse scattered crackles. ABDOMEN: Soft, nontender . No guarding. no masses palpable. No ascites, No hepatosplenomegaly.Bowel sounds heard. LEGS: No edema. no swelling. No cyanosis, no clubbing, no calf tenderness. Stage II Left heel, stage II left foot fourth digit PSYCHIATRY: Alert and oriented X3, mood and affect normal. NERVOUS SYSTEM: Cranial N 2-12 grossly normal. No focal deficits. Strength a nd sensation grossly intact. Skin: Warm and dry, no rash. Stage II coccyx, sacrum Assessment: Acute on chronic hypoxic respiratory failure secondary to progressive idiopathic pulmonary fibrosis, acute CHF Exac. Diastolic dysfunction pulmonary hypertension. Wears 3 L nasal cannula@ home. Elevated troponins, cardiology following Hypertensive urgency IPF CAD, history of CABG,stents Paroxysmal atrial fibrillation on Coumadin, history of ablation Supratherapeutic INR Hypertension Hyperlipidemia Hiatal Hernia, history of Gout Chronic peripheral neuropathy Osteoarthritis Former nicotine dependence Plan: Continue on current medication regime ,monitoring and symptomatic treatment. Kidney functions worsening and will discontinue IV lasix. Recommend repeat labs. PUlmonary and cardiology following and patient is continued on nebulized bronchodilators, and oral steroids. Echo pending . Prognosis is guarded. The impression and plan of care has been dictated by Angelina Jon, Nurse Practitioner as directed. Dr. holland MD I have performed a history and examination and MDM of this patient, discussed the same with the dictator, and agree with the dictator's assessment and plan as written ,documented as a scribe. Based on total visit time, I have performed more than 50% of the visit. Objective - Vital Signs Vital signs: Vital Signs Temp 97.5 F L 01/01/22 03:41 Pulse 88 01/01/22 08:44 Resp 22 01/01/22 06:16 BP 144/98 01/01/22 06:16 Pulse Ox 90 L 01/01/22 06:16 FiO2 Intake & Output 12/31/21 01/01/22 01/01/22 18:59 06:59 18:59 Intake Total 236 690 Output Total 400 700 Balance -164 -10 Weight 78.8 kg 79.3 kg Intake: Oral 236 690 Output: Urine 300 700 Stool 100 Other: Voiding Method Toilet Toilet # Voids 1 1 # Bowel Movements 1 1 - Labs CBC & Chem 7: 01/01/22 09:21 01/01/22 09:21 Labs: Abnormal Lab Results - Last 24 Hours (Table) 12/31/21 12/31/21 01/01/22 Range/Units 17:18 19:52 05:59 POC Glucose (mg/dL) 142 H 181 H 117 H (70-110) mg/dL
[2022-01-02 06:02] LABS: Glucose,Whole Blood 63 mg/dL (70-110)
[2022-01-02 06:15] LABS: Glucose,Whole Blood 64 mg/dL (70-110)
[2022-01-02] MEDS: INSULIN ASPART (NovoLOG) 100 UNIT/ML VIAL SQ SCH ×4 (06:18→20:43)
[2022-01-02] MEDS: carvediloL 6.25 MG TAB PO SCH ×2 (06:18→16:51)
[2022-01-02 06:30] LABS: Glucose,Whole Blood 76 mg/dL (70-110)
--- NOTE | 2022-01-02 07:01 | P.PN ---
Subjective Progress Note Date: 01/02/22 Principal diagnosis: Shortness of breath This is a 71-year-old gentleman with a past medical history significant for CAD and status post CABG in 2016 as well as hypertension and dyslipidemia and also paroxysmal atrial fibrillation as well as history of pulmonary fibrosis and chr onic hypoxic respiratory failure on oxygen at home who was admitted to the hospital with increasing shortness of breath and bilateral lower except his edema and he was diagnosed with heart failure exacerbation. He underwent an echocardiogram which revealed impaired LV function with EF between 40-45% with moderate pulmonary hypertension. His troponin came in to be slightly elevated. The patient initially was started on Lasix but his kidney function gets worse yesterday and the Lasix was stopped. He was seen this morning. He continues to be symptomatic. I did perform d- dimer yesterday to rule out PE and that came in to be abnormal. We did perform also chest x-ray and that seems to be unchanged compared to before. NT proBNP came in to be around 4000. He is symptomatic in terms of shortness of breath. I do believe that the patient if he continues to be symptomatic at this point he might benefit from doing a heart catheterization primarily right heart catheterization and also possibly left heart catheterization to assess his right and left filling pressures and also rule out any severe CAD could be contributing to his cardiomyopathy. His EF in 2020 was within normal limits. He is known to have CAD with prior CABG Objective - Vital Signs Vital signs: Vital Signs Temp 97.4 F L 01/02/22 03:48 Pulse 83 01/02/22 03:48 Resp 22 01/02/22 03:48 BP 139/73 01/02/22 03:48 Pulse Ox 97 01/02/22 03:48 FiO2 32 01/01/22 19:50 Intake & Output 01/01/22 01/01/22 01/02/22 06:59 18:59 06:59 Intake Total 690 240 Output Total 629 662 9640 Balance -10 -400 -760 Weight 79.3 kg 79.4 kg Intake: Oral 690 240 Output: Urine 888 413 1184 Other: Voiding Method Toilet Toilet Toilet # Voids 1 1 # Bowel Movements 1 1 - Constitutional General appearance: Present: no acute distress - Respiratory Respiratory: bilateral: rales - Cardiovascular Heart sounds: normal: S1, S2 Abnormal Heart Sounds: Present: systolic murmur - Labs CBC & Chem 7: 01/01/22 09:21 01/01/22 09:21 Labs: Abnormal Lab Results - Last 24 Hours (Table) 01/01/22 01/01/22 01/01/22 Range/Units 09:21 09:21 09:21 WBC 11.8 H (3.8-10.6) k/uL MCV 103.9 H (80.0-100.0) fL Neutrophils # 11.3 H (1.3-7.7) k/uL Lymphocytes # 0.1 L (1.0-4.8) k/uL PT 34.9 H (9.0-12.0) sec INR 3.5 H (<1.2) Sodium 135 L (137-145) mmol/L Chloride 88 L (98-107) mmol/L Carbon Dioxide 41 H* (22-30) mmol/L BUN 53 H (9-20) mg/dL Creatinine 1.46 H (0.66-1.25) mg/dL Glucose 191 H (74-99) mg/dL POC Glucose (mg/dL) (70-110) mg/dL 01/01/22 01/01/22 01/01/22 Range/Units 12:00 17:08 20:16 WBC (3.8-10.6) k/uL MCV (80.0-100.0) fL Neutrophils # (1.3-7.7) k/uL Lymphocytes # (1.0-4.8) k/uL PT (9.0-12.0) sec INR (<1.2) Sodium (137-145) mmol/L Chloride (98-107) mmol/L Carbon Dioxide (22-30) mmol/L BUN (9-20) mg/dL Creatinine (0.66-1.25) mg/dL Glucose (74-99) mg/dL POC Glucose (mg/dL) 139 H 156 H 162 H (70-110) mg/dL 01/02/22 01/02/22 Range/Units 05:59 06:13 WBC (3.8-10.6) k/uL MCV (80.0-100.0) fL Neutrophils # (1.3-7.7) k/uL Lymphocytes # (1.0-4.8) k/uL PT (9.0-12.0) sec INR (<1.2) Sodium (137-145) mmol/L Chloride (98-107) mmol/L Carbon Dioxide (22-30) mmol/L BUN (9-20) mg/dL Creatinine (0.66-1.25) mg/dL Glucose (74-99) mg/dL POC Glucose (mg/dL) 63 L 64 L (70-110) mg/dL Microbiology - Last 24 Hours (Table) 12/30/21 13:08 Stool Culture - Final Stool Assessment and Plan Assessment: Assessment #1 acute on chronic respiratory failure #2 known pulmonary fibrosis #3 known CAD and status post CABG #4 cardiomyopathy, EF between 40-45%. This is new. An echo from 2020 revealed an EF within normal limits according to the chart in the office #5 pulmonary hypertension, likely WHO group 2 and group 3 #6 paroxysmal atrial fibrillation Plan #1 the Lasix was stopped because of renal failure #2 if he continues to be symptomatic the benefit from heart catheterization, right and left to assess his filling pressures and also rule out obstructive CAD #3 continue monitor the kidney function and electrolytes #4 follow-up with the patient
[2022-01-02] MEDS: IPRATROPIUM-ALBUTEROL 3 ML NEB INHALATION SCH ×4 (07:47→19:35)
--- NOTE | 2022-01-02 08:03 | XR ---
EXAMINATION TYPE: XR chest 1V portable DATE OF EXAM: 01/02/2022 7:36 AM COMPARISON: Chest radiograph from one day prior. TECHNIQUE: XR chest 1V portable Portable AP radiograph of the chest. CLINICAL INDICATION:Male, 71 years old with history of dyspnea; FINDINGS: FINDINGS: Lungs/Pleura: Diffuse scattered airspace opacities are present. There may be mild improvement of the aeration of the lung. Pulmonary vascularity: Mild pulmonary vascular congestion. Heart/mediastinum: Cardiomediastinal silhouette is enlarged and stable. Left atrial appendage occlusi on device is present. Musculoskeletal: No acute osseous pathology. Midline sternotomy wires are noted and stable. IMPRESSION: 1. No significant change in airspace opacities. 2. Superimposed congestive heart failure is not entirely excluded.
[2022-01-02] MEDS: PANTOPRAZOLE 40 MG/10 ML VIAL IVP SCH (08:48)
[2022-01-02] MEDS: ASPIRIN 81 MG PO SCH (08:49)
[2022-01-02] MEDS: predniSONE 20 MG TAB PO SCH (08:49)
[2022-01-02] MEDS: cloNIDine HCL 0.1 MG TAB PO SCH ×4 (08:49→20:51)
[2022-01-02 09:42] LABS: Basophils % (A) 0 %; Eosinophils % (A) 0 %; HCT 46.7 % (39.0-53.0); HGB 14.4 gm/dL (13.0-17.5); Hypochromasia Moderate; Lymphocytes # (A) 0.4 k/uL (1.0-4.8); Lymphocytes % (A) 4 %; MCH 31.4 pg (25.0-35.0); MCHC 30.8 g/dL (31.0-37.0); MCV 101.9 fL (80.0-100.0); Macrocytosis Slight; Mean Platelet Volume 7.2; Monocytes # (A) 0.6 k/uL (0-1.0); Monocytes % (A) 5 %; Neutrophils # (A) 9.6 k/uL (1.3-7.7); Neutrophils % (A) 89 %; Platelet Count 156 k/uL (150-450); RBC 4.58 m/uL (4.30-5.90); RDW 13.8 % (11.5-15.5); WBC 10.8 k/uL (3.8-10.6)
[2022-01-02 09:52] LABS: Calcium 8.2 mg/dL (8.4-10.2); Potassium 4.3 mmol/L (3.5-5.1)
--- NOTE | 2022-01-02 10:43 | P.PN ---
Subjective Progress Note Date: 01/02/22 Principal diagnosis: Shortness of breath. This is a 71-year-old white male patient with past medical history of IPF on home oxygen and Ofev, atrial fibrillation with previous cardiac ablation, hypertension, hyperlipidemia, osteoarthritis, coronary artery disease with history of coronary artery bypass grafting and stenting, former smoker, who presented to the emergency department on 12/28/2021 complaining of worsening dyspnea. His symptoms have progressed over the past few weeks. In addition patient has been having frequent loose stools multiple times a day over the past few weeks, which could be related to Ofev. Patient denied any fever, no chills, no phlegm production, no leg pain, no increased leg swelling on presentation. Physical exam does reveal some pretibial edema. His chest x-ray showing diffuse airspace opacities throughout the lungs which have increased from 10/24/2021, and acute congestive heart failure was suggested to correlate with BNP given the cardiomegaly and pulmonary vessel congestion, infectious etiology was also suggested to be ruled out. Admission blood work showed normal white count of 9.8, hemoglobin of 15.5, platelet count is 167, INR is 5.2, sodium is 136, potassium 3.9, chloride is 95, CO2 39, B1 is 29, creatinine is 1.17, lactic acid is 1.3, troponin levels were 0.072, 0.075, and 0.091. [employer] level came back elevated at 4730, patient was tested for COVID-19 and influenza A and B and was found to be negative for over 3. Stool lactoferrin was negative. He was started on IV Lasix by cardiology, echocardiogram showed left ventricle ejection fraction of 40-45%, moderate concentric LVH, mild aortic stenosis, left atrial enlargement. Patient continues on nebulized bronchodilators and IV steroids. Pro-calcitonin level has been sent and pending. No history of fever or chills no sick contacts. Progress note dated 01/01/2022. 71-year-old male again seen in evaluation, room 375. He has a history of idiopathic pulmonary fibrosis and chronic hypoxemic respiratory failure. He is currently on a drug called OFEV, but, he is having significant complications including refractory diarrhea. He was taking one 50 mg twice a day. Other medical problems include atrial fibrillation, with previous ablation, hypertension, hyperlipidemia, osteoarthritis, CAD, bypass grafting, and previous tobacco use. He was minute with a diagnosis of increasing shortness of breath. White count 11.8 hemoglobin 14.6 hematocrit 47.1 and platelet count 284,000. PTT 34.9 with an INR 3.5. Sodium 135, potassium 4.4, chloride 88, CO2 41, BUN 53, and creatinine 1.46. N-terminal proBNP was 3800. Chest x-ray showed diffuse airspace opacities, which is minimally improved. The patient's pattern may be that of CHF. Progress note dated 01/02/2022. 71-year-old male seen today in room 375. He's currently on 4 L nasal cannula. No IV fluids. The patient is currently on prednisone 20 g a day. His diarrhea, is better. Labs today include a white count 10.8, hemoglobin 14.4, hematocrit 46.7, and platelet count 256,000. Sodium 135, potassium 4.3, chlorides 89, CO2 46, BUN 54, creatinine 1.18. Chest x-ray done today shows no significant change in airspace opacities. Objective - Vital Signs Vital signs: Vital Signs Temp 97.6 F 01/02/22 08:45 Pulse 95 01/02/22 08:45 Resp 24 01/02/22 08:45 BP 122/80 01/02/22 08:45 Pulse Ox 99 01/02/22 08:45 FiO2 32 01/01/22 19:50 Intake & Output 01/01/22 01/02/22 01/02/22 18:59 06:59 18:59 Intake Total 240 Output Total 400 1000 350 Balance -400 -760 -350 Weight 79.4 kg Intake: Oral 240 Output: Urine 400 1000 250 Stool 100 Other: Voiding Method Toilet Toilet Toilet # Voids 1 # Bowel Movements 1 1 - Exam Mild conversational dyspnea. No audible wheezing. No use of accessory muscles. Patient is oriented 3. HEENT examination is grossly unremarkable. Neck supple. Full range of motion. No adenopathy thyromegaly or neck vein distention. Cardiovascular examination reveals regular rhythm rate. S1-S2 normal. No S3 or S4. No discernible murmur noted. Heart rate 95 bpm. Lungs reveal bibasilar Velcro crackles. He is restricted in his breathing. No rhonchi. No wheezes. 4 L saturation is 99%. Abdomen soft bowel sounds are heard. No masses or tenderness. Extremities are intact. No cyanosis clubbing or edema. Skin is without rash or lesion. Neurologic examination is brief but nonfocal. - Labs CBC & Chem 7: 01/02/22 09:03 01/02/22 09:03 Labs: Abnormal Lab Results - Last 24 Hours (Table) 01/01/22 01/01/22 01/01/22 Range/Units 12:00 17:08 20:16 WBC (3.8-10.6) k/uL MCV (80.0-100.0) fL MCHC (31.0-37.0) g/dL Neutrophils # (1.3-7.7) k/uL Lymphocytes # (1.0-4.8) k/uL Sodium (137-145) mmol/L Chloride (98-107) mmol/L Carbon Dioxide (22-30) mmol/L BUN (9-20) mg/dL Glucose (74-99) mg/dL POC Glucose (mg/dL) 139 H 156 H 162 H (70-110) mg/dL Calcium (8.4-10.2) mg/dL 01/02/22 01/02/22 01/02/22 Range/Units 05:59 06:13 09:03 WBC 10.8 H (3.8-10.6) k/uL MCV 101.9 H (80.0-100.0) fL MCHC 30.8 L (31.0-37.0) g/dL Neutrophils # 9.6 H (1.3-7.7) k/uL Lymphocytes # 0.4 L (1.0-4.8) k/uL Sodium (137-145) mmol/L Chloride (98-107) mmol/L Carbon Dioxide (22-30) mmol/L BUN (9-20) mg/dL Glucose (74-99) mg/dL POC Glucose (mg/dL) 63 L 64 L (70-110) mg/dL Calcium (8.4-10.2) mg/dL 01/02/22 Range/Units 09:03 WBC (3.8-10.6) k/uL MCV (80.0-100.0) fL MCHC (31.0-37.0) g/dL Neutrophils # (1.3-7.7) k/uL Lymphocytes # (1.0-4.8) k/uL Sodium 135 L (137-145) mmol/L Chloride 89 L (98-107) mmol/L Carbon Dioxide 46 H* (22-30) mmol/L BUN 54 H (9-20) mg/dL Glucose 105 H (74-99) mg/dL POC Glucose (mg/dL) (70-110) mg/dL Calcium 8.2 L (8.4-10.2) mg/dL Microbiology - Last 24 Hours (Table) 12/30/21 13:08 Stool Culture - Final Stool Assessment and Plan Assessment: Acute on chronic hypoxemic respiratory failure, secondary to both idiopathic pulmonary fibrosis, and diastolic CHF. Moderate pulmonary hypertension. History of severe idiopathic pulmonary fibrosis, maintained on OFEV. Severe diarrhea secondary to OFEV. CAD with previous bypass grafting and stenting. History of hiatal hernia. History of gout. History of hypertension. History of hyperlipidemia. Plan: Plan dated 01/01/2022. The patient's Solu-Medrol was discontinued in favor of oral prednisone. Pro- calcitonin level is only 0.09. N-terminal proBNP is 3800. The patient remains on breathing treatments. We will continue to follow make recommendations were appropriate. The patient also continues on Lasix, 40 mg, IV push, every 8 hours. The patient is not taking OFEV here in the hospital. Should he resume the medication, he should probably drop back to 150 mg once a day, or 100 mg once a day. Plan dated 01/02/2022. The patient was placed on prednisone 20 mg a day. Not currently on any antibiotics. His diarrhea is a bit better. He remains on 4 L. We will continue to follow make recommendations where appropriate. His long-term prognosis is not good. He may have to stop the OFEV altogether, or modify the dose. He will follow-up in our office. Time with Patient: Less than 30
[2022-01-02 11:38] LABS: Glucose,Whole Blood 159 mg/dL (70-110)
[2022-01-02] MEDS ORDERED: SIMETHICONE 80 MG CHEWABLE PO PRN (12:25)
[2022-01-02] MEDS: ALPRAZolam 0.5 MG TAB PO PRN (13:21)
--- NOTE | 2022-01-02 14:05 | P.PN ---
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 Denies chest pain, palpitations .Denies cough, congestion, fever or chills. Denies syncope Chest x-ray reported diffuse airspace opacity Xarelto lungs increased from 10/24/2021, congestive heart failure changes-correlate with serum BnP secondary to cardiomegaly and pulmonary vascular congestion, and possible infectious etiology. EKG reported sinus tach with frequent PACs, nonspecific ST and T-wave abnormalities.troponin 0.072, 0.075, 0.091, proBNP 4730, INR 5.2. Afebrile, normal WBC, hemoglobin 15.5, platelets 167, sodium 136, potassium 3.9, chloride 95, bicarb 39, BUN 29, creatinine 1.17, lactic acid 1.3. Testing negative for COVID-19, influenza A/B. IV push diuretics, IV steroids and nebulized bronchodilators initiated. 01/01/2022 Patient is seen in follow-up this morning continues to be closely monitored with pulmonary and cardiology following closely. Patient was admitted for CHF along with component of pulmonary fibrosis. Patient is maintained on02 via NC and also is receiving duonebs and oral steroids. Patient was maintained on IV lasix although given his worsening kidney functions, recommending discontinuing the IV lasix for now. Patient is afebrile and denies chest pain or palpitations. Patient continues to report shortness of breath. 01/02/2022 Patient is seen today and continues to have shortness of breath and currently maintained on 4 L via nasal cannula with oxygen saturation of 99% and re commending weaning FiO2 as tolerated. Patient is afebrile and denies chest pain or palpitations. IV Lasix was discontinued yesterday given patient's worsening kidney function although improving today and currently creatinine is 1.18 with a BUN of 54. Carbon dioxide critical high at 46 and chloride is 89 with a potassium of 4.3 and current sodium is 135. Blood sugars on the lower side and recommend continuing to monitor Accu-Cheks before meals and at bedtime and continuing with sliding scale as needed and continue with hypoglycemia protocol as needed as well. Patient reports some increasing gas and bloating and will order simethicone. Encouraged increase activity as tolerated and recommend continue with telemetry monitoring for now. Also recommend aspiration precautions and dysphagia chopped diet and continued head of the bed elevated at 30-45 at all times along with no straws and supervision with meals. Chest x- ray today shows no significant change in airspace opacification with superimposed CHF not entirely excluded with some mild pulmonary vascular congestion. . Review of systems: Constitutional: No reports of fatigue, fever, or chills Cardiovascular: No reports of chest pain or palpitations Respiratory: reports of shortness of breath GI: No reports of nausea, vomiting, or diarrhea : No reports of dysuria or retention Neurovascular: reports of weakness All medications have been reviewed PHYSICAL EXAM: GENERAL: Pleasant, alert and oriented 3 ,Sitting up in bed, continues to be short of breath with conversation, currently on 4 L via nasal cannula HEENT: Normocephalic /Atraumatic, Conjunctivae normal. eyes normal. NECK: Supple, No JVD. No thyroid enlargement. No LNs CARDIOVASCULAR: S1, S2 regular. No murmur RESPIRATION: Diminished breath sounds bilaterally with Equal air entry with diffuse scattered crackles. ABDOMEN: Soft, nontender . No guarding. no masses palpable. No ascites, No hepatosplenomegaly.Bowel sounds heard. LEGS: No edema. no swelling. No cyanosis, no clubbing, no calf tenderness. Stage II Left heel, stage II left foot fourth digit PSYCHIATRY: Alert and oriented X3, mood and affect normal. NERVOUS SYSTEM: Cranial N 2-12 grossly normal. No focal deficits. Strength and sensation grossly intact. Skin: Warm and dry, no rash. Stage II coccyx, sacrum Assessment: Acute on chronic hypoxic respiratory failure secondary to progressive idiopathic pulmonary fibrosis, acute CHF Exac. Diastolic dysfunction pulmonary hypertension. Wears 3 L nasal cannula@ home. Elevated troponins, cardiology following Hypertensive urgency IPF CAD, history of CABG,stents Paroxysmal atrial fibrillation on Coumadin, history of ablation Supratherapeutic INR Hypertension Hyperlipidemia Hiatal Hernia, history of Gout Chronic peripheral neuropathy Osteoarthritis Former nicotine dependence Plan: Continue on current medication regime ,monitoring and symptomatic treatment. Kidney functions showing some improvement and will start oral Lasix in a.m. and continue to monitor vital signs. Recommend repeat labs. PUlmonary and cardiolo gy following and patient is continued on nebulized bronchodilators, and oral steroids. Recommend increase activity as tolerated and also recommend aspiration precautions and will have speech evaluate the patient. Given multiple complex medical issues, Prognosis is guarded. The impression and plan of care has been dictated by Angelina Jon, Nurse Practitioner as directed. Dr. Turner MD I have performed a history and examination and MDM of this patient, discussed the same with the dictator, and agree with the dictator's assessment and plan as written ,documented as a scribe. Based on total visit time, I have performed more than 50% of the visit. Objective - Vital Signs Vital signs: Vital Signs Temp 97.6 F 01/02/22 08:45 Pulse 95 01/02/22 08:45 Resp 24 01/02/22 08:45 BP 122/80 01/02/22 08:45 Pulse Ox 99 01/02/22 08:45 FiO2 32 01/01/22 19:50 Intake & Output 01/01/22 01/02/22 01/02/22 18:59 06:59 18:59 Intake Total 240 Output Total 400 1000 Balance -400 -760 Weight 79.4 kg Intake: Oral 240 Output: Urine 400 1000 Other: Voiding Method Toilet Toilet # Voids 1 # Bowel Movements 1 - Labs CBC & Chem 7: 01/02/22 09:03 01/02/22 09:03 Labs: Abnormal Lab Results - Last 24 Hours (Table) 01/01/22 01/01/22 01/01/22 Range/Units 09:21 09:21 09:21 WBC 11.8 H (3.8-10.6) k/uL MCV 103.9 H (80.0-100.0) fL Neutrophils # 11.3 H (1.3-7.7) k/uL Lymphocytes # 0.1 L (1.0-4.8) k/uL PT 34.9 H (9.0-12.0) sec INR 3.5 H (<1.2) Sodium 135 L (137-145) mmol/L Chloride 88 L (98-107) mmol/L Carbon Dioxide 41 H* (22-30) mmol/L BUN 53 H (9-20) mg/dL Creatinine 1.46 H (0.66-1.25) mg/dL Glucose 191 H (74-99) mg/dL POC Glucose (mg/dL) (70-110) mg/dL 01/01/22 01/01/22 01/01/22 Range/Units 12:00 17:08 20:16 WBC (3.8-10.6) k/uL MCV (80.0-100.0) fL Neutrophils # (1.3-7.7) k/uL Lymphocytes # (1.0-4.8) k/uL PT (9.0-12.0) sec INR (<1.2) Sodium (137-145) mmol/L Chloride (98-107) mmol/L Carbon Dioxide (22-30) mmol/L BUN (9-20) mg/dL Creatinine (0.66-1.25) mg/dL Glucose (74-99) mg/dL POC Glucose (mg/dL) 139 H 156 H 162 H (70-110) mg/dL 01/02/22 01/02/22 Range/Units 05:59 06:13 WBC (3.8-10.6) k/uL MCV (80.0-100.0) fL Neutrophils # (1.3-7.7) k/uL Lymphocytes # (1.0-4.8) k/uL PT (9.0-12.0) sec INR (<1.2) Sodium (137-145) mmol/L Chloride (98-107) mmol/L Carbon Dioxide (22-30) mmol/L BUN (9-20) mg/dL Creatinine (0.66-1.25) mg/dL Glucose (74-99) mg/dL POC Glucose (mg/dL) 63 L 64 L (70-110) mg/dL Microbiology - Last 24 Hours (Table) 12/30/21 13:08 Stool Culture - Final Stool
[2022-01-02 16:56] LABS: Glucose,Whole Blood 87 mg/dL (70-110)
[2022-01-02 18:41] LABS: Glucose,Whole Blood 158 mg/dL (70-110)
[2022-01-02 20:43] LABS: Glucose,Whole Blood 107 mg/dL (70-110)
[2022-01-02] MEDS: NON FORMULARY DRUG (Rosuvastatin 20 MG Tablet) PO SCH (22:13)
[2022-01-03 06:17] LABS: Glucose,Whole Blood 89 mg/dL (70-110)
[2022-01-03] MEDS: carvediloL 6.25 MG TAB PO SCH (06:48)
[2022-01-03] MEDS: INSULIN ASPART (NovoLOG) 100 UNIT/ML VIAL SQ SCH ×2 (06:48→11:53)
[2022-01-03] MEDS ORDERED: PANTOPRAZOLE 40 MG TABLET PO SCH (07:30)
[2022-01-03] MEDS: IPRATROPIUM-ALBUTEROL 3 ML NEB INHALATION SCH ×3 (07:59→15:34)
[2022-01-03 08:00] LABS: African American GFR (CKD) >90 (>60 ml/min/1.73 sqM); Blood Urea Nitrogen 46 mg/dL (9-20); Calcium 8.8 mg/dL (8.4-10.2); Chloride 89 mmol/L (98-107); Glucose 101 mg/dL (74-99); Non-African American GFR(CKD) 78 (>60 ml/min/1.73 sqM); Sodium 133 mmol/L (137-145)
[2022-01-03 08:06] LABS: Anion Gap 1 mmol/L
[2022-01-03 08:10] LABS: Carbon Dioxide 43 mmol/L (22-30)
[2022-01-03 08:26] VITALS: TEMP 97.5
[2022-01-03] MEDS: predniSONE 20 MG TAB PO SCH (08:29)
[2022-01-03] MEDS: cloNIDine HCL 0.1 MG TAB PO SCH ×2 (08:29→12:42)
[2022-01-03] MEDS: ASPIRIN 81 MG PO SCH (08:29)
[2022-01-03] MEDS ORDERED: FUROSEMIDE 40 MG TAB PO SCH (09:00)
--- NOTE | 2022-01-03 09:47 | CDI ---
Documentation Clarification Form Date: 01/03/2022 09:37:06 AM From: Bibiana Estes CCS, CCDS Admit Date: 12/30/2021 12:30:00 PM Patient Name: Anthony Spears Visit Number: [id number] Discharge Date: ATTENTION: The Clinical Documentation Specialists (CDI) and [facility] Coding Staff appreciate your assistance in clarifying documentation. Please respond to the clarification below the line at the bottom and electronically sign. The CDI & [facility] Coding staff will review the response and follow-up if needed. Please note: Queries are made part of the Legal Health Record. If you have any questions, please contact the author of this message via ITS. Dr. Dagoberto Weems: Per the 12/31 History & Physical: Close monitoring of renal function and electrolytes with repeat labs ordered for a.m. Per the 01/02 Cardiology Progress Note: The Lasix was stopped because of renal failure. Additional clarification regarding the acuity of renal failure is requested. History/Risk Factors per the 12/31 H/P: Progressive IPF, Chronic hypoxic respiratory failure on 3Lnc home O2, Atrial fibrillation, GERD, Hypertension, Hyperlipidemia, CAD with history of CABG and Stents, Former smoker. Clinical Indicators: Presented to the ED on 12/30 via EMS with SOB for a few weeks, frequent loose stools. Admit with Idiopathic pulmonary fibrosis & CHF. LABS: 12/30 BUN 29, Creatinine 1.17. 01/01 BUN 53, Creatinine 1.46. 01/02 BUN 54, Creatinine 1.18 01/03 BUN 46, Creatinine 0.98 Treatment 12/30: Telemetry, CHF Protocol, Garner cath initiation, Stool Culture, Heart healthy diet, O2 2Lnc, INH Duoneb 3 ml x1, IV Solumedrol 125 mg x1, IV Lasix 40 mg q8H Please clarify the acuity of renal failure, if known: [ ] Acute Renal Failure (specify cause if known): [ ] Renal Failure ruled out [X ] Other, please specify ___acute kidney injury [ ] Unable to determine (Template Last Revised: July 2020) MTDD
[2022-01-03 11:52] LABS: Glucose,Whole Blood 105 mg/dL (70-110)
[2022-01-03 12:41] VITALS: BP 154/81; RESP 19
[2022-01-03] MEDS: HYDROmorphone 1 MG/ML 1 ML SYRINGE IVP PRN (12:42)
[2022-01-03 13:00] LABS: INR 1.1 (<1.2)
[2022-01-03 13:01] LABS: Prothrombin Time 11.6 sec (9.0-12.0)
[2022-01-03 13:46] VITALS: BMI 21.3
--- NOTE | 2022-01-03 14:24 | P.PN ---
Subjective Progress Note Date: 01/03/22 HISTORY OF PRESENT ILLNESS: This is a pleasant 71-year-old male with past medical history of severe pulmonary fibrosis, Coronary artery disease status post CABG in 2016 (HOWE to LAD, SVT to diagonal, Obtuse marginal and PDA branch of RCA), and history of PCI in the past , hypertension, dyslipidemia, paroxysmal atrial fibrillation on Coumadin. He follows in the office with Dr. Barbosa. We have been asked to see in consultation for congestive heart failure. Patient presents emergency department with complaints of shortness of breath and LE edema, lightheadedness and dizziness. Patient states over the last few weeks he's been noticing increased shortness of breath, orthopnea. He also endorses some increased mild lower extremity edema. He denies any chest pain. He doesn't endorse with activity he was had increased dizziness and lightheadedness. No syncope. He does endorse increased salt intake. He denies cough, fever, chills. He endorses weight loss. His blood pressure is elevated this morning however patient has not received his antihypertensives in the past 48 hours. DIAGNOSTICS * EKG reveals sinus tachycardia, PVCs, heart rate 107, nonspecific ST-T wave a bnormalities, LVH, no acute ischemia * Lexiscan stress test in the office 06/2021 revealed inferior hypokinesia with a fixed defect and some sera-infarct ischemia noted, similar to previous test in 2019, EF 50% * Echocardiogram 03/2021 revealed EF 50%, severely dilated left atrium, mild mitral regurgitation, mild tricuspid regurgitation * Chest xray diffuse airspace opacities in the lungs, increased compared to chest x-ray on 10/24/21. consider infectious etiologies vs CHF. * Laboratory reviewed, troponin 0.072, proBNP 4730, INR 5.2, sodium 136, potassium 29, serum creatinine 1.1, troponin negative, influenza negative * Current home cardiac medications include metoprolol titrate 100mg daily, Co umadin 5 mg nightly, clonidine 0.1 mg 4 times a day, rosuvastatin 10 mg nightly 01/01/2022 The patient was seen this morning. He stated that he is not feeling well. He continues to have shortness of breath. He is tachycardic on examination. I am going to obtain a chest x-ray and also obtain d-dimer to rule out PE. He underwent an echocardiogram which revealed mildly impaired only function was elevated between 40-45%. He does have also moderate pulmonary hypertension. He also underwent to obtain a stat INR. If the INR is low I might start the patient on heparin IV for possible acute coronary syndrome as an etiology for his symptoms. Pulmonary critical care team is on the case as well. Further recommendation to follow. 01/02/2022 He was seen this morning. He continues to be symptomatic. I did perform d- dimer yesterday to rule out PE and that came in to be abnormal. We did perform also chest x-ray and that seems to be unchanged compared to before. NT proBNP came in to be around 4000. He is symptomatic in terms of shortness of breath. I do believe that the patient if he continues to be symptomatic at this point he might benefit from doing a heart catheterization primarily right heart catheterization and also possibly left heart catheterization to assess his right and left filling pressures and also rule out any severe CAD could be contributing to his cardiomyopathy. His EF in 2020 was within normal limits. He is known to have CAD with prior CABG 01/03/2022 Patient examined this morning at the bedside. Patient denies chest pain or pressure. He reports shortness of breath. He was receiving Lasix which was discontinued secondary to acute kidney injury. His acute kidney injury has since resolved and he was resumed on oral Lasix this morning. Patient's blood pressure this morning stable at 138/79. He is on 2 L nasal cannula with oxygen saturations greater than 92%. PHYSICAL EXAM: VITAL SIGNS: Reviewed. GENERAL: Well-developed in no acute distress. NECK: Supple. No JVD or thyromegaly LUNGS: Respirations even and unlabored. Lungs essentially clear to auscultation bilaterally. HEART: Regular rate and rhythm. S1 and S2 heard. EXTREMITIES: Normal range of motion. No clubbing or cyanosis. Peripheral pulses intact. No lower extremity edema ASSESSMENT: Shortness of breath, could be combination of severe pulmonary fibrosis and congestive heart failure, possible pulmonary hypertension Acute heart failure with preserved ejection fraction, patient with increased salt intake at home Hypertensive Urgency Pulmonary fibrosis Supratherapeutic INR Coronary artery disease status post CABG in 2015 (HOWE to LAD, SVT to diagonal, Obtuse marginal and PDA branch of RCA), history of PCI in the past Hypertension Dyslipidemia Paroxysmal atrial fibrillation on Coumadin PLAN: Continue current cardiac medications Resume Coumadin as coagulopathy has resolved Patient resumed on Lasix 40 mg twice a day No plans for heart catheterization at this time. Will continue with conservative management Further recommendations pending patient course Nurse practitioner note has been reviewed by physician. Signing provider agrees with the documented findings, assessment, and plan of care. Objective - Vital Signs Vital signs: Vital Signs Temp 97.5 F L 01/03/22 08:21 Pulse 91 01/03/22 12:39 Resp 19 01/03/22 12:39 BP 154/81 01/03/22 12:39 Pulse Ox 98 01/03/22 12:39 FiO2 32 01/01/22 19:50 Intake & Output 01/02/22 01/03/22 01/03/22 18:59 06:59 18:59 Intake Total 480 240 Output Total 1001 200 Balance -521 40 Weight 79.4 kg Intake: Oral 480 240 Output: Urine 900 200 Stool 101 Other: Voiding Method Toilet Bedside Commode Bedside Commode # Voids 1 # Bowel Movements 1 1 - Labs CBC & Chem 7: 01/02/22 09:03 01/03/22 06:44 Labs: Abnormal Lab Results - Last 24 Hours (Table) 01/02/22 01/03/22 Range/Units 18:40 06:44 Sodium 133 L (137-145) mmol/L Chloride 89 L (98-107) mmol/L Carbon Dioxide 43 H* (22-30) mmol/L BUN 46 H (9-20) mg/dL Glucose 101 H (74-99) mg/dL POC Glucose (mg/dL) 158 H (70-110) mg/dL Microbiology - Last 24 Hours (Table) 12/30/21 13:08 Stool Culture - Preliminary Stool
--- NOTE | 2022-01-03 14:57 | P.PN ---
Subjective Progress Note Date: 01/03/22 This is a 71-year-old white male patient with past medical history of IPF on home oxygen and Ofev, atrial fibrillation with previous cardiac ablation, hypertension, hyperlipidemia, osteoarthritis, coronary artery disease with history of coronary artery bypass grafting and stenting, former smoker, who pre sented to the emergency department on 12/28/2021 complaining of worsening dyspnea. His symptoms have progressed over the past few weeks. In addition patient has been having frequent loose stools multiple times a day over the past few weeks, which could be related to Ofev. Patient denied any fever, no chills, no phlegm production, no leg pain, no increased leg swelling on presentation. Physical exam does reveal some pretibial edema. His chest x-ray showing diffuse airspace opacities throughout the lungs which have increased from 10/24/2021, and acute congestive heart failure was suggested to correlate with BNP given the cardiomegaly and pulmonary vessel congestion, infectious etiology was also suggested to be ruled out. Admission blood work showed normal white count of 9.8, hemoglobin of 15.5, platelet count is 167, INR is 5.2, sodium is 136, potassium 3.9, chloride is 95, CO2 39, B1 is 29, creatinine is 1.17, lactic acid is 1.3, troponin levels were 0.072, 0.075, and 0.091. [employer] level came back elevated at 4730, patient was tested for COVID-19 and influenza A and B and was found to be negative for over 3. Stool lactoferrin was negative. He was started on IV Lasix by cardiology, echocardiogram showed left ventricle ejection fraction of 40-45%, moderate concentric LVH, mild aortic stenosis, left atrial enlargement. Patient continues on nebulized bronchodilators and IV steroids. Pro-calcitonin level has been sent and pending. No history of fever or chills no sick contacts. Progress note dated 01/01/2022. 71-year-old male again seen in evaluation, room 375. He has a history of idiopathic pulmonary fibrosis and chronic hypoxemic respiratory failure. He is currently on a drug called OFEV, but, he is having significant complications including refractory diarrhea. He was taking one 50 mg twice a day. Other medical problems include atrial fibrillation, with previous ablation, hypertension, hyperlipidemia, osteoarthritis, CAD, bypass grafting, and previous tobacco use. He was minute with a diagnosis of increasing shortness of breath. White count 11.8 hemoglobin 14.6 hematocrit 47.1 and platelet count 284,000. PTT 34.9 with an INR 3.5. Sodium 135, potassium 4.4, chloride 88, CO2 41, BUN 53, and creatinine 1.46. N-terminal proBNP was 3800. Chest x-ray showed diffuse airspace opacities, which is minimally improved. The patient's pattern may be that of CHF. Progress note dated 01/02/2022. 71-year-old male seen today in room 375. He's currently on 4 L nasal cannula. No IV fluids. The patient is currently on prednisone 20 g a day. His diarrhea, is better. Labs today include a white count 10.8, hemoglobin 14.4, hematocrit 46.7, and platelet count 256,000. Sodium 135, potassium 4.3, chlorides 89, CO2 46, BUN 54, creatinine 1.18. Chest x-ray done today shows no significant change in airspace opacities. 01/03/2022, I'm seeing the patient for a follow-up. Unfortunately, this patient is doing poorly. He continues to BE short of breath and his breathing is labored at the same time, the patient is quite anxious. He was given a combi nation of Dilaudid and Xanax for pain and anxiety. As mentioned earlier, the patient has IPF and the patient has been on Ofev on outpatient basis. Nevertheless, his condition essentially progress. No signs of any fluid overload. No signs of any infection with blood work today shows a mean of 46 with a creatinine of 0.9. Insulin is at 133. Normal. Coagulation profile. The patient has a white cell count of 10.8 with hemoglobin 14.4 and a platelet count of 146. The same time, the patient is on long-term and to coagulation with warfarin. The PT/INR is being monitored. The patient remains on Lasix 40 mg by mouth twice a day and the patient is currently on a prednisone dose of 20 mg by mouth daily. He denies having any significant improvement since his arrival to the hospital. INR today is down to 1.1 from 3.5. Coumadin is going to be restarted. Objective - Vital Signs Vital signs: Vital Signs Temp 97.5 F L 01/03/22 08:21 Pulse 98 01/03/22 10:58 Resp 20 08/08/22 10:58 BP 138/79 01/03/22 08:21 Pulse Ox 95 01/03/22 08:21 FiO2 32 01/01/22 19:50 Intake & Output 01/02/22 01/03/22 01/03/22 18:59 06:59 18:59 Intake Total 480 240 Output Total 1001 200 Balance -521 40 Intake: Oral 480 240 Output: Urine 900 200 Stool 101 Other: Voiding Method Toilet Bedside Commode Bedside Commode # Voids 1 # Bowel Movements 1 1 - Exam Patient is oriented 3., Breathing is labored and the patient shortness of breath, unable to complete full sentences. Head exam was generally normal. There was no scleral icterus or corneal arcus. Mucous membranes were moist. HEENT examination is grossly unremarkable. Neck supple. Full range of motion. No adenopathy thyromegaly or neck vein distention. Cardiovascular examination reveals regular rhythm rate. S1-S2 normal. No S3 or S4. Lungs reveal bibasilar Velcro crackles. He is restricted in his breathing. No rhonchi. No wheezes. 4 L saturation is 99%. Abdomen soft bowel sounds are heard. No masses or tenderness. Extremities are intact. No cyanosis clubbing or edema. Skin is without rash or lesion. Neurologic examination is brief but nonfocal. - Labs CBC & Chem 7: 01/02/22 09:03 01/03/22 06:44 Labs: Abnormal Lab Results - Last 24 Hours (Table) 01/02/22 01/03/22 Range/Units 18:40 06:44 Sodium 133 L (137-145) mmol/L Chloride 89 L (98-107) mmol/L Carbon Dioxide 43 H* (22-30) mmol/L BUN 46 H (9-20) mg/dL Glucose 101 H (74-99) mg/dL POC Glucose (mg/dL) 158 H (70-110) mg/dL Microbiology - Last 24 Hours (Table) 12/30/21 13:08 Stool Culture - Preliminary Stool Assessment and Plan Plan: Acute on chronic hypoxemic respiratory failure, secondary to both idiopathic pulmonary fibrosis, and diastolic CHF. Moderate pulmonary hypertension. History of severe idiopathic pulmonary fibrosis, maintained on OFEV. Severe diarrhea secondary to OFEV. CAD with previous bypass grafting and stenting. History of hiatal hernia. History of gout. History of hypertension. History of hyperlipidemia. Plan: Progressive pulmonary fibrosis, with secondary shortness of breath. Patient's presentation is typical of exacerbation of pulmonary fibrosis/IPF which carries bites of a very poor prognosis. No signs of any fluid overload or superinfection. The patient has been fully anticoagulated with warfarin on ou tpatient basis. As such, possibility of pulmonary embolism is felt to be less likely. Presentation is typical of IPF progression and the chest x-ray shows extensive interstitial lung disease with fibrosis and small lung volumes and the patient is quite symptomatic. We'll continue oral steroids. We'll continue the Dilaudid and Xanax. Dilaudid and Xanax. The patient has to go back on anticoagulation with warfarin with daily PT/INR monitoring. Prognosis poor. May need to consider hospice if there is no improvement in his condition over the next 24-48 hours. Case was discussed with the at the bedside.
--- NOTE | 2022-01-03 16:11 | P.PN ---
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 Denies chest pain, palpitations .Denies cough, congestion, fever or chills. Denies syncope Chest x-ray reported diffuse airspace opacity Xarelto lungs increased from 10/24/2021, congestive heart failure changes-correlate with serum BnP secondary to cardiomegaly and pulmonary vascular congestion, and possible infectious etiology. EKG reported sinus tach with frequent PACs, nonspecific ST and T-wave abnormalities.troponin 0.072, 0.075, 0.091, proBNP 4730, INR 5.2. Afebrile, normal WBC, hemoglobin 15.5, platelets 167, sodium 136, potassium 3.9, chloride 95, bicarb 39, BUN 29, creatinine 1.17, lactic acid 1.3. Testing negative for COVID-19, influenza A/B. IV push diuretics, IV steroids and nebulized bronchodilators initiated. 01/03/2022 cardiology recommending conservative care. Significant anxiety, shortness of breath and denies improvement. Patient apparently was hospice prior to admission. Patient wishes to proceed with hospice at hospice house. Denies chest pain, palpitations. Objective - Vital Signs Vital signs: Vital Signs Temp 97.5 F L 01/03/22 08:21 Pulse 91 01/03/22 12:39 Resp 19 01/03/22 12:39 BP 154/81 01/03/22 12:39 Pulse Ox 98 01/03/22 12:39 FiO2 32 01/01/22 19:50 Intake & Output 01/02/22 01/03/22 01/03/22 18:59 06:59 18:59 Intake Total 480 240 Output Total 1001 200 Balance -521 40 Weight 79.4 kg Intake: Oral 480 240 Output: Urine 900 200 Stool 101 Other: Voiding Method Toilet Bedside Commode Bedside Commode # Voids 1 # Bowel Movements 1 1 - Exam PHYSICAL EXAM: VITAL SIGNS: As above GENERAL: Anxious, alert and oriented 3 ,Sitting up in bed, respiratory effort increased HEENT: Normocephalic /Atraumatic, Conjunctivae normal. eyes normal. NECK: Supple, No JVD. No thyroid enlargement. No LNs CARDIOVASCULAR: S1, S2 regular. No murmur RESPIRATION: Labored, Bibasilar diffuse scattered crackles throughout. ABDOMEN: Soft, mildly distended, diffuse tenderness. No guarding. no masses palpable. Bowel sounds heard. LEGS: No edema. no swelling. No cyanosis, no clubbing, no calf tenderness. S tage II Left heel, stage II left foot fourth digit PSYCHIATRY: Alert and oriented X3, mood and affect normal. NERVOUS SYSTEM: Cranial N 2-12 grossly normal. No focal deficits. Strength and sensation grossly intact. Skin: Warm and dry, no rash. Stage II coccyx, sacrum - Labs CBC & Chem 7: 01/02/22 09:03 01/03/22 06:44 Labs: Abnormal Lab Results - Last 24 Hours (Table) 01/02/22 01/03/22 Range/Units 18:40 06:44 Sodium 133 L (137-145) mmol/L Chloride 89 L (98-107) mmol/L Carbon Dioxide 43 H* (22-30) mmol/L BUN 46 H (9-20) mg/dL Glucose 101 H (74-99) mg/dL POC Glucose (mg/dL) 158 H (70-110) mg/dL Microbiology - Last 24 Hours (Table) 12/30/21 13:08 Stool Culture - Preliminary Stool Assessment and Plan Assessment: Acute on chronic hypoxic respiratory failure secondary to progressive idiopathic pulmonary fibrosis, acute CHF Exac. Diastolic dysfunction previously (Echo pending), pulmonary hypertension. Wears 3 L nasal cannula@ home. Elevated troponins, cardiology following Hypertensive urgency IPF CAD, history of CABG,stents Paroxysmal atrial fibrillation on Coumadin, history of ablation Supratherapeutic INR Hypertension Hyperlipidemia Hiatal Hernia, history of Gout Chronic peripheral neuropathy Osteoarthritis Former nicotine dependence No code, no CPR, no intubation Hospice, [facility] hospice Plan: Continue on current medication regime ,monitoring and symptomatic treatment. [facility] hospice in progress, with prn Ativan, morphine initiated. Patient wishes to proceed to hospice house-we will attempt in a.m. pending breathing/anxiety more stabilized for transport. The impression and plan of care has been dictated as directed. : I performed a history and examination of this patient, discussed the same with the dictator. I agree with the dictator's note ,documented as a scribe. Any additional findings or plans will be noted.
[2022-01-03 16:29] VITALS: PULSE 91
[2022-01-03] MEDS ORDERED: WARFARIN 5 MG TAB PO SCH (17:30)
== END 2022-01-03 16:31 | disposition hospice, inpatient (51) | DRG 196 ==
LOC: EC 10:00 → 3SCARD 12:30
PROVIDERS: ADMIT Family Medicine; ATTEND Family Medicine
DX: J84.112 Idiopathic pulmonary fibrosis (principal); I50.43 Acute on chronic combined systolic (congestive) and diastolic (congestive) heart failure; J96.21 Acute and chronic respiratory failure with hypoxia; I5A Non-ischemic myocardial injury (non-traumatic); I42.9 Cardiomyopathy, unspecified; N17.9 Acute kidney failure, unspecified; Z20.822 Contact with and (suspected) exposure to COVID-19; I11.0 Hypertensive heart disease with heart failure; I48.0 Paroxysmal atrial fibrillation; I27.20 Pulmonary hypertension, unspecified; I16.0 Hypertensive urgency; R79.1 Abnormal coagulation profile; G62.9 Polyneuropathy, unspecified; I08.1 Rheumatic disorders of both mitral and tricuspid valves; I25.10 Atherosclerotic heart disease of native coronary artery without angina pectoris; R59.1 Generalized enlarged lymph nodes; R19.7 Diarrhea, unspecified; E78.5 Hyperlipidemia, unspecified; K21.9 Gastro-esophageal reflux disease without esophagitis; F41.9 Anxiety disorder, unspecified; R00.0 Tachycardia, unspecified; I49.3 Ventricular premature depolarization; K44.9 Diaphragmatic hernia without obstruction or gangrene; M10.9 Gout, unspecified; M54.9 Dorsalgia, unspecified; M19.90 Unspecified osteoarthritis, unspecified site; Z95.1 Presence of aortocoronary bypass graft; Z95.5 Presence of coronary angioplasty implant and graft; Z98.42 Cataract extraction status, left eye; Z98.41 Cataract extraction status, right eye; Z88.8 Allergy status to other drugs, medicaments and biological substances; Z79.899 Other long term (current) drug therapy; Z79.01 Long term (current) use of anticoagulants; Z79.52 Long term (current) use of systemic steroids; Z87.891 Personal history of nicotine dependence; Z87.440 Personal history of urinary (tract) infections; Z82.49 Family history of ischemic heart disease and other diseases of the circulatory system; Z82.3 Family history of stroke; Z87.19 Personal history of other diseases of the digestive system
CPT/HCPCS: 36415; 71045; 71046; 74230; 80048; 80053; 83605; 83630; 83880; 84145; 84484; 85025; 85379; 85610; 85730; 87045; 87046; 87502; 87635; 93005; 93306; 94640; 94760; 96374; 96375; 96376; 99285

== ENCOUNTER 2022-01-03 15:00 | Inpatient (IN) | payer MEDICAID ==
[2022-01-03] MEDS ORDERED: MORPHINE SULFATE 4 MG/ML SYRINGE IVP PRN (15:10)
[2022-01-03] MEDS ORDERED: LORazepam 0.5 MG TAB PO PRN (15:14)
[2022-01-03] MEDS ORDERED: IPRATROPIUM-ALBUTEROL 3 ML NEB INHALATION PRN (15:21)
[2022-01-03] MEDS ORDERED: SIMETHICONE 80 MG CHEWABLE PO PRN (15:24)
[2022-01-03] MEDS ORDERED: DEXTROSE 50% SYRINGE 50 ML IVP PRN ×2 (15:27)
[2022-01-03] MEDS: FUROSEMIDE 40 MG TAB PO SCH (17:42)
[2022-01-03] MEDS: carvediloL 6.25 MG TAB PO SCH (17:42)
[2022-01-03] MEDS: cloNIDine HCL 0.1 MG TAB PO SCH ×2 (17:42→20:39)
[2022-01-03] MEDS: INSULIN ASPART (NovoLOG) 100 UNIT/ML VIAL SQ SCH ×2 (17:43→20:30)
[2022-01-03] MEDS ORDERED: WARFARIN 5 MG TAB PO SCH (18:00)
[2022-01-03] MEDS: IPRATROPIUM-ALBUTEROL 3 ML NEB INHALATION SCH ×2 (18:15→19:47)
[2022-01-03 20:13] LABS: Glucose,Whole Blood 116 mg/dL (70-110)
[2022-01-03] MEDS ORDERED: ATORVASTATIN 10 MG TAB PO SCH (21:00)
[2022-01-04 06:00] LABS: Glucose,Whole Blood 114 mg/dL (70-110)
[2022-01-04] MEDS: INSULIN ASPART (NovoLOG) 100 UNIT/ML VIAL SQ SCH ×3 (06:23→17:21)
[2022-01-04] MEDS: carvediloL 6.25 MG TAB PO SCH ×2 (06:49→17:21)
[2022-01-04] MEDS ORDERED: PANTOPRAZOLE 40 MG TABLET PO SCH (07:30)
[2022-01-04] MEDS ORDERED: ONDANSETRON 4 MG/2 ML VIAL IVP PRN (08:01)
[2022-01-04] MEDS: IPRATROPIUM-ALBUTEROL 3 ML NEB INHALATION SCH ×4 (08:36→19:53)
[2022-01-04] MEDS: cloNIDine HCL 0.1 MG TAB PO SCH ×3 (08:45→17:21)
[2022-01-04] MEDS: FUROSEMIDE 40 MG TAB PO SCH ×2 (08:45→17:20)
[2022-01-04] MEDS ORDERED: ASPIRIN 81 MG PO SCH (09:00)
[2022-01-04] MEDS ORDERED: predniSONE 20 MG TAB PO SCH (09:00)
[2022-01-04 11:25] VITALS: TEMP 97.3
--- NOTE | 2022-01-04 11:35 | P.HPIM ---
History of Present Illness H&P Date: 01/04/22 Chief Complaint: Hospice History and Physical and Discharge Summary: This is a 71-year-old gentleman with past medical history of progressive IPF on Ofev , chronic hypoxic respiratory failure on 3 L nasal cannula atrial fibrillation, gastroesophageal reflux disease, hypertension, hyperlipidemia, osteoarthritis, CAD with history of stents, former smoker and multiple other medical issues presented to the ER with worsening shortness of breath over the last few weeks, hypertensive-reports has not had his antihypertensives in 48 hours. Denies chest pain, palpitations .Denies cough, congestion, fever or chills. Denies syncope Chest x-ray reported diffuse airspace opacity Xarelto lungs increased from 10/24/2021, congestive heart failure changes-correlate with serum BnP secondary to cardiomegaly and pulmonary vascular congestion, and possible infectious etiology. EKG reported sinus tach with frequent PACs, nonspecific ST and T-wave abnormalities.troponin 0.072, 0.075, 0.091, proBNP 4730, INR 5.2. Afebrile, normal WBC, hemoglobin 15.5, platelets 167, sodium 13 6, potassium 3.9, chloride 95, bicarb 39, BUN 29, creatinine 1.17, lactic acid 1.3. Testing negative for COVID-19, influenza A/B. IV push diuretics, IV steroids and nebulized bronchodilators initiated. 01/03/2022 cardiology recommending conservative care. Significant anxiety, shortness of breath and denies improvement. Patient apparently was hospice prior to admission. Patient wishes to proceed with hospice at [facility]. Denies chest pain, palpitations. Yesterday transitioned to [facility] hospice. We'll discharge this morning to [facility] in a stable condition with guarded prognosis. The impression and plan of care has been dictated as directed. : I performed a history and examination of this patient, discussed the same with the dictator. I agree with the dictator's note ,documented as a scribe. Any additional findings or plans will be noted. Review of Systems ROS Statement: Those systems with pertinent positive or pertinent negative responses have been documented in the HPI. ROS Other: All systems not noted in ROS Statement are negative. Past Medical History Past Medical History: Atrial Fibrillation, Chest Pain / Angina, GERD/Reflux, Hyperlipidemia, Hypertension, Osteoarthritis (OA) Additional Past Medical History / Comment(s): CURRENT: HAS BEEN HAVING OCCASIONAL CHEST PAIN/PRESSUE WITH SOB, hx of bilateral tinnitis, UTI, occasional back pain, hiatal hernia, past dysphagia related to allergic reaction to medication, gout . pulmonary fibrosis History of Any Multi-Drug Resistant Organisms: None Reported Past Surgical History: Cardiac Ablation, Coronary Bypass/CABG, Heart Catheterization With Stent, Orthopedic Surgery Additional Past Surgical History / Comment(s): LEFT KNEE surgery for injury in [place], LEFT ROTATOR CUFF, CARDIOVERSION X 2, colonoscopy with benign polypectomy, bilateral cataract removals, quadruple bypass 03/13 Past Anesthesia/Blood Transfusion Reactions: No Reported Reaction Date of Last Stent Placement:: 1999 Past Psychological History: No Psychological Hx Reported Additional Psychological History / Comment(s): Pt resides with his spouse. He is independent. He drives. Smoking Status: Former smoker Past Alcohol Use History: Occasional Additional Past Alcohol Use History / Comment(s): QUIT SMOKING 25 YRS AGO (1988), SMOKED FOR 20 YRS, 1PPD Past Drug Use History: Marijuana Additional Drug Use History / Comment(s): ocassional THC gummie use - Past Family History Mother Family Medical History: No Reported History Additional Family Medical History / Comment(s): Mother of a sunstroke in her late 30's Father Family Medical History: Coronary Artery Disease (CAD) Additional Family Medical History / Comment(s): Father of heart disease (pt unsure if it was a [place]) in his early 40's Medications and Allergies Home Medications Medication Instructions Recorded Confirmed Type Albuterol Sulfate [Proventil Hfa] 2 puff INHALATION RT-Q6H PRN 02/25/16 12/30/21 History Indomethacin [Indocin] 50 mg PO BID PRN 12/04/18 12/30/21 History Metoprolol Tartrate [Lopressor] 100 mg PO DAILY 12/04/18 12/31/21 History Mometasone Inhalr 220 Mcg/Puff 2 puff INHALATION RT-BID 10/23/21 12/30/21 History [Asmanex] Rosuvastatin [Crestor] 10 mg PO HS 10/23/21 12/30/21 History Warfarin [Coumadin] 5 mg PO W/SUPPER 12/30/21 12/30/21 History cloNIDine HCL [Catapres] 0.1 mg PO QID 12/30/21 12/30/21 History predniSONE 10 mg PO DAILY 12/30/21 12/30/21 History Allergies Allergy/AdvReac Type Severity Reaction Status Date / Time benazepril Allergy THROAT Verified 12/30/21 18:49 Swelling duloxetine [From Cymbalta] Allergy THROAT Verified 12/30/21 18:49 Swelling amlodipine AdvReac HEADACHE Verified 12/30/21 18:49 atorvastatin [From Lipitor] AdvReac EDEMA Verified 12/30/21 18:49 pravastatin AdvReac MUSCLE PAIN Verified 12/30/21 18:49 simvastatin AdvReac MUSCLE PAIN Verified 12/30/21 18:49 Physical Exam Vitals: Vital Signs Temp Pulse Pulse Resp BP Pulse Ox 01/04/22 08:00 97.3 F L 91 26 H 133/83 97 01/04/22 03:56 97.6 F 94 28 H 165/91 92 L 01/04/22 00:42 97.6 F 63 24 162/90 97 01/03/22 20:00 97.5 F L 82 18 171/100 97 01/03/22 19:58 92 01/03/22 19:47 93 01/03/22 17:37 71 19 170/86 99 Intake and Output 01/03/22 01/04/22 01/04/22 22:59 06:59 14:59 Intake Total 118 Balance 118 Intake: Oral 118 Other: Voiding Method Bedside Commode Bedside Commode Urinal Urinal # Voids 1 1 # Bowel Movements 1 1 Weight 79.4 kg - Exam PHYSICAL EXAM: VITAL SIGNS: As above GENERAL: Anxious, alert and oriented 3 ,Sitting up in bed, respiratory effort increased HEENT: Normocephalic /Atraumatic, Conjunctivae normal. eyes normal. NECK: Supple, No JVD. No thyroid enlargement. No LNs CARDIOVASCULAR: S1, S2 regular. No murmur RESPIRATION: Labored, Bibasilar diffuse scattered crackles throughout. ABDOMEN: Soft, mildly distended, diffuse tenderness. No guarding. no masses palpable. Bowel sounds heard. LEGS: No edema. no swelling. No cyanosis, no clubbing, no calf tenderness. Stage II Left heel, stage II left foot fourth digit PSYCHIATRY: Alert and oriented X3, mood and affect normal. NERVOUS SYSTEM: Cranial N 2-12 grossly normal. No focal deficits. Strength and sensation grossly intact. Skin: Warm and dry, no rash. Stage II coccyx, sacrum Results Labs: Abnormal Lab Results - Last 24 Hours (Table) 01/03/22 01/04/22 Range/Units 20:11 05:58 POC Glucose (mg/dL) 116 H 114 H (70-110) mg/dL Assessment and Plan Assessment: Acute on chronic hypoxic respiratory failure secondary to progressive idiopathic pulmonary fibrosis, acute CHF Exac. Diastolic dysfunction previously (Echo pend ing), pulmonary hypertension. Wears 3 L nasal cannula@ home. Elevated troponins, cardiology following Hypertensive urgency IPF CAD, history of CABG,stents Paroxysmal atrial fibrillation on Coumadin, history of ablation Supratherapeutic INR Hypertension Hyperlipidemia Hiatal Hernia, history of Gout Chronic peripheral neuropathy Osteoarthritis Former nicotine dependence No code, no CPR, no intubation Hospice, [facility] hospice Plan: Continue on comfort care/hospice GIP. Patient will be discharged to [facility] today in a stable condition with guarded prognosis. Discharge Medication List Albuterol Sulfate [Proventil Hfa] 2 puff INHALATION RT-Q6H PRN 02/25/16 [History] Indomethacin [Indocin] 50 mg PO BID PRN 12/04/18 [History] Metoprolol Tartrate [Lopressor] 100 mg PO DAILY 12/04/18 [History] Mometasone Inhalr 220 Mcg/Puff [Asmanex] 2 puff INHALATION RT-BID 10/23/21 [History] Rosuvastatin [Crestor] 10 mg PO HS 10/23/21 [History] Warfarin [Coumadin] 5 mg PO W/SUPPER 12/30/21 [History] cloNIDine HCL [Catapres] 0.1 mg PO QID 12/30/21 [History] predniSONE 10 mg PO DAILY 12/30/21 [History] The impression and plan of care has been dictated as directed. : I performed a history and examination of this patient, discussed the same with the dictator. I agree with the dictator's note ,documented as a scribe. Any additional findings or plans will be noted.
[2022-01-04 11:57] VITALS: BMI 21.3
[2022-01-04 12:25] LABS: Glucose,Whole Blood 117 mg/dL (70-110)
[2022-01-04 13:12] LABS: INR 1.1 (<1.2); Prothrombin Time 11.6 sec (9.0-12.0)
[2022-01-04 15:27] VITALS: RESP 22
[2022-01-04] MEDS ORDERED: SCOPOLAMINE 1 MG/72 HR PATCH TRANSDERM STA (17:43)
[2022-01-04] MEDS ORDERED: WARFARIN 3 MG TAB PO ONE (18:00)
[2022-01-04 18:18] VITALS: BP 127/78; PULSE 110
== END 2022-01-04 21:05 | disposition expired | DRG 951 ==
LOC: 3SCARD 16:46
PROVIDERS: ADMIT Family Medicine; ATTEND Family Medicine
DX: Z51.5 Encounter for palliative care (principal); J96.21 Acute and chronic respiratory failure with hypoxia; I50.22 Chronic systolic (congestive) heart failure; J44.9 Chronic obstructive pulmonary disease, unspecified; E78.5 Hyperlipidemia, unspecified; K21.9 Gastro-esophageal reflux disease without esophagitis; I16.0 Hypertensive urgency; F41.9 Anxiety disorder, unspecified; G62.9 Polyneuropathy, unspecified; I11.0 Hypertensive heart disease with heart failure; I25.10 Atherosclerotic heart disease of native coronary artery without angina pectoris; I27.20 Pulmonary hypertension, unspecified; I48.0 Paroxysmal atrial fibrillation; I50.9 Heart failure, unspecified; J84.112 Idiopathic pulmonary fibrosis; K44.9 Diaphragmatic hernia without obstruction or gangrene; M10.9 Gout, unspecified; M19.90 Unspecified osteoarthritis, unspecified site; Z79.01 Long term (current) use of anticoagulants; Z79.899 Other long term (current) drug therapy; Z82.49 Family history of ischemic heart disease and other diseases of the circulatory system; Z87.891 Personal history of nicotine dependence; Z95.1 Presence of aortocoronary bypass graft; Z95.5 Presence of coronary angioplasty implant and graft; Z88.8 Allergy status to other drugs, medicaments and biological substances; Z98.42 Cataract extraction status, left eye; Z98.41 Cataract extraction status, right eye; Z87.19 Personal history of other diseases of the digestive system; Z87.440 Personal history of urinary (tract) infections
CPT/HCPCS: 85610; 94640